=== PATIENT | female | born 1995 | race Caucasian/White ===

== ENCOUNTER 2023-09-11 20:47 | Emergency (ER) | payer BC, SELFPAY ==
[2023-09-11 20:51] VITALS: BP 129/93; PULSE 85; TEMP 36.9; O2SAT 99; BMI 34.2
--- NOTE | 2023-09-11 21:01 | PC.NURSE ---
Left lower quadrant pain for one month.
--- NOTE | 2023-09-11 21:07 | ED.GENADUL1 ---
HPI HPI - General Adult General Chief complaint: Headache Stated complaint: HEADACHE Time Seen by Provider: 09/11/23 20:50 Source: patient Mode of arrival: walk-in Limitations: no limitations History of Present Illness HPI narrative: This 28-year-old female presents for evaluation of a headache that has been present for approximately 1 week and left lower quadrant abdominal pain that has been present for approximately 1 month. The patient states for the past 3 months she has been getting headaches that are associated with nausea and photophobia. She has been taking Tylenol, Aleve and Excedrin Migraine for the headache with minimal improvement. She denies any thunderclap presentation of the headache. She has not had a fever. She denies any neck pain or stiffness. She has nausea and occasionally has episodes of vomiting. She has not vomited during this headache syndrome. She denies any chest pain or shortness of breath. She has been having intermittent left lower quadrant abdominal pain for the past month and has a history of ovarian cyst. She denies the possibility of . She denies any urinary symptoms. She states the pain comes and goes. It is not bothering her at this time. She denies any vaginal bleeding or discharge. At this time she has a bitemporal headache and posterior occipital headache. She states that when she gets the headaches they have been in various positions but typically are bitemporal. She has no neck pain or stiffness. She has no focal weakness numbness or tingling. No blurred vision or slurred speech. Related Data Home Medications ?Medication ?Instructions ?Recorded ?Confirmed No Known Home Medications 09/11/23 09/11/23 Allergies Allergy/AdvReac Type Severity Reaction Status Date / Time No Known Drug Allergies Allergy Verified 09/11/23 20:55 Opioid HPI Opioid Management Most Recent Opioid Data: No Data to Display Review of Systems ROS Status of ROS 10 or more systems reviewed and unremarkable except as noted in history and below Exam Narrative Exam Narrative: Vital signs and Nursing Notes reviewed: Patient is afebrile with a normal pulse, diastolic blood pressure is elevated at 129/93, she is not hypoxic with pulse ox of 99% on room air General: Awake, alert, oriented, mildly uncomfortable appearing female lying in a dark room, when the lights were turned on she squinted and covered her eyes, no respiratory distress HEENT: Normocephalic atraumatic, mucous membranes are moist and pink, eyes are clear, normal conjunctiva, vision is grossly intact, mild photophobia appreciated, pupils are equal and reactive, posterior pharynx is normal with no erythema or exudate Neck: Supple, no meningeal signs, no anterior or posterior cervical lymphadenopathy Chest: Lungs are clear to auscultation with good air entry, there is no wheezing rhonchi or rales appreciated no accessory muscle use, patient is speaking in complete sentences-no chest wall tenderness to palpation CVS: Regular rate and rhythm S1-S2, no murmurs rubs or gallops, pulses are brisk and equal bilaterally ABD: Soft, nondistended, nontender, no rebound guarding or rigidity, bowel sounds are normal, no reproducible tenderness on exam Extremities: Moving all extremities, no lower extremity tenderness or swelling noted, negative Homans' sign, pulses are brisk and equal bilaterally Skin: Normal in appearance without rash,pallor, petechiae or purpura Neuro: No focal deficits, speech is clear, time lock expert strength is intact, upper and lower extremity strength and sensation is intact, no gross focal deficits Constitutional Vital Signs, click to edit/add: Last Vital Signs Temp 98.5 F 09/11/23 20:51 Pulse 70 09/11/23 22:12 Resp 18 09/11/23 22:12 BP 96/62 09/11/23 22:12 Pulse Ox 10 L 09/11/23 22:12 O2 Del Method Room Air 09/11/23 22:12 Course Vital Signs Vital signs: Vital Signs Temperature 98.5 F 09/11/23 20:51 Pulse Rate 85 09/11/23 20:51 Respiratory Rate 16 09/11/23 20:51 Blood Pressure 129/93 H 09/11/23 20:51 Pulse Oximetry 99 09/11/23 20:51 Oxygen Delivery Method Room Air 09/11/23 20:51 Temperature 98.5 F 09/11/23 20:51 Pulse Rate 70 09/11/23 22:12 Respiratory Rate 18 09/11/23 22:12 Blood Pressure 96/62 09/11/23 22:12 Pulse Oximetry 10 L 09/11/23 22:12 Oxygen Delivery Method Room Air 09/11/23 22:12 Medical Decision Making MDM Narrative Medical decision making narrative: This 28-year-old female presents for evaluation of a bitemporal and posterior occipital headache that started approximately 1 week ago. She has been having headaches for the past 3 months. Her headache is associated with nausea and photophobia. She denies any thunderclap presentation of the headache. She has no fever. She has no skin rash. She has no nuchal rigidity. She has also been having left lower quadrant abdominal pain intermittently for the past month and her physician wants her to have an ultrasound. [facility] and the patient was not having any significant left lower quadrant abdominal pain. She did have photophobia and otherwise a normal neuroexam. An IV was placed and she was medicated with IV fluids, Toradol, Reglan and Benadryl. Routine labs were ordered. She has a normal white count and hemoglobin. She has a normal CRP and sed rate. She has normal electrolytes. The patient was able to rest and on reevaluation her headache has resolved and she is feeling comfortable being discharged home. She will be discharged home with a prescription for Reglan and an ultrasound requisition for the left lower quadrant abdominal pain. Lab Data Labs: Lab Results 09/11/23 Range/Units 21:12 WBC 9.0 (4.0-11.0) 10^3/uL RBC 4.29 (4.20-5.40) 10^6/uL Hgb 12.4 (12.0-16.0) g/dL Hct 37.5 (36.0-48.0) % MCV 87.4 (81.0-99.0) fL MCH 28.9 (26.7-34.0) pg MCHC 33.1 (29.9-35.2) g/dL RDW 12.5 (11.0-15.0) % Plt Count 316 (150-450) 10^3/uL MPV 10.1 (9.5-13.5) fL Neut % (Auto) 52.6 (43.0-75.0) % Lymph % (Auto) 39.3 (20.5-60.0) % [place] % (Auto) 6.2 (1.7-12.0) % Eos % (Auto) 1.1 (0.9-7.0) % Baso % (Auto) 0.6 (0.2-2.0) % Neut # (Auto) 4.8 (1.4-6.5) 10^3/uL Lymph # (Auto) 3.6 (1.2-3.8) 10^3/uL [place] # (Auto) 0.6 (0.3-0.8) 10^3/uL Eos # (Auto) 0.1 (0.0-0.7) 10^3/uL Baso # (Auto) 0.1 (0.0-0.1) 10^3/uL Abs Immat Gran (auto) 0.02 (0.00-0.03) 10^3/uL Imm/Tot Granulo (auto) 0.2 (0.0-0.5) % ESR 6 (<=20) mm/hr Sodium 139 (136-145) mmol/L Potassium 4.2 (3.5-5.1) mmol/L Chloride 105 (98-107) mmol/L Carbon Dioxide 25.8 (21.0-32.0) mmol/L Anion Gap 12.4 BUN 11.0 (7.0-18.0) mg/dL Creatinine 0.84 (0.55-1.02) mg/dL Est GFR ( Amer) >60 (>=60) Est GFR (Non-Af Amer) >60 (>=60) BUN/Creatinine Ratio 13.1 Glucose 85 (74-106) mg/dL Calcium 8.8 (8.5-10.1) mg/dL Total Bilirubin 0.4 (0.2-1.0) mg/dL AST 17 (15-37) U/L ALT 17 (14-59) U/L Alkaline Phosphatase 75 (46-116) U/L C-Reactive Protein <0.50 (<=0.50) mg/dL Total Protein 7.1 (6.4-8.2) g/dL Albumin 3.7 (3.4-5.0) g/dL Globulin 3.4 g/dL Albumin/Globulin Ratio 1.1 Discharge Plan Discharge Stand Alone Forms: Portal Instructions Chief Complaint: Headache Clinical Impression: Headache, Pelvic pain Patient Disposition: Home, Self-Care Time of Disposition Decision: 22:15 Condition: Good Prescriptions / Home Meds: No Action No Known Home Medications Print Language: Nepali Referrals: FRANCISCA ZAMUDIO [Primary Care Provider] - 1 week Discharge Date/Time: 09/11/23 22:22
[2023-09-11 21:26] LABS: Erythrocyte Sedimentation Rate 6 mm/hr (<=20)
[2023-09-11] MEDS: 0.9 % SODIUM CHLORIDE 1,000 ML 1000 ML IV (21:30)
[2023-09-11] MEDS: DIPHENHYDRAMINE HCL 50 MG/ML VIAL 12.5 MG IV (21:31)
[2023-09-11] MEDS: METOCLOPRAMIDE HCL 10 MG/2 ML VIAL IVP (21:31)
[2023-09-11] MEDS: KETOROLAC TROMETHAMINE 30 MG/ML VIAL IVP (21:31)
[2023-09-11] MEDS: METHYLPREDNISOLONE SOD SUCC PF 125 MG/2 ML VIAL IVP (21:31)
[2023-09-11 21:36] LABS: Alanine Aminotransferase 17 U/L (14-59); Albumin Globulin Ratio 1.1; Albumin Level 3.7 g/dL (3.4-5.0); Alkaline Phosphatase 75 U/L (46-116); Anion Gap 12.4; Aspartate Amino Transferase 17 U/L (15-37); BUN Creatinine Ratio 13.1; Bilirubin Total 0.4 mg/dL (0.2-1.0); C Reactive Protein <0.50 mg/dL (<=0.50); Calcium 8.8 mg/dL (8.5-10.1); Carbon Dioxide 25.8 mmol/L (21.0-32.0); Chloride 105 mmol/L (98-107); Estimated GFR (African America >60 (>=60); Estimated GFR (Non-African Ame >60 (>=60); Globulin 3.4 g/dL; Glucose 85 mg/dL (74-106); Potassium 4.2 mmol/L (3.5-5.1); Sodium 139 mmol/L (136-145); Total Protein 7.1 g/dL (6.4-8.2)
[2023-09-11 22:12] VITALS: BP 96/62; PULSE 70; O2SAT 10
[2023-09-11 22:17] LABS: Basophils Percent Auto 0.6 % (0.2-2.0); Eosinophils Percent Auto 1.1 % (0.9-7.0); Hematocrit 37.5 % (36.0-48.0); Hemoglobin 12.4 g/dL (12.0-16.0); Immature Granulocytes Pct Auto 0.2 % (0.0-0.5); Lymphocytes Absolute Auto 3.6 10^3/uL (1.2-3.8); Lymphocytes Percent Auto 39.3 % (20.5-60.0); Mean Corpuscular HGB Conc 33.1 g/dL (29.9-35.2); Mean Corpuscular Hemoglobin 28.9 pg (26.7-34.0); Mean Corpuscular Volume 87.4 fL (81.0-99.0); Mean Platelet Volume 10.1 fL (9.5-13.5); Monocytes Percent Auto 6.2 % (1.7-12.0); Neutrophils Absolute Auto 4.8 10^3/uL (1.4-6.5); Neutrophils Percent Auto 52.6 % (43.0-75.0); Platelet Count 316 10^3/uL (150-450); Red Blood Count 4.29 10^6/uL (4.20-5.40); Red Cell Distribution Width 12.5 % (11.0-15.0)
[2023-09-11 22:18] LABS: Basophils Absolute Auto 0.1 10^3/uL (0.0-0.1); Eosinophils Absolute Auto 0.1 10^3/uL (0.0-0.7); Immature Granulocytes Abs Auto 0.02 10^3/uL (0.00-0.03); Monocytes Absolute Auto 0.6 10^3/uL (0.3-0.8)
== END 2023-09-11 22:22 | disposition home or self-care (01) ==
PROVIDERS: Emergency Provider Emergency Medicine; PCP Internal Medicine
DX: R51.9 Headache, unspecified (principal); R10.2 Pelvic and perineal pain
CPT/HCPCS: 36415; 80053; 85025; 85652; 86140; 96374; 96375; 99284; J1200; J1885; J2765; J2919

== ENCOUNTER 2023-09-16 13:50 | Outpatient (OUT) | payer BC, SELFPAY ==
--- NOTE | 2023-09-16 13:56 | US_ITS ---
The [address] [address] Patient Name: ABDULLAHI ZAMORA MRN: [id number] date: 1995 Sex: F Assigned Patient Location: Current Patient Location: Accession/Order Number: [id number] Exam Date: 09/16/2023 14:00 Report Date: 09/17/2023 08:27 At the request of: KIM MARKER Procedure: US pelvis w/ transvaginal EXAM: Pelvic ultrasound HISTORY: . Left Pelvic Pain . COMPARISON: None. TECHNIQUE: Transabdominal and transvaginal scanning was performed FINDINGS: Scanning of the pelvis demonstrates a retroverted uterus measuring 7.1 x 5 x 3.9 cm. Endometrial complex measures 4 mm. There is a linear hyperechoic structure within the endometrial cavity consistent with an IUD which appears in adequate position. Right ovary measures 3.5 x 1.6 x 1.7 cm. Color-flow is noted. Follicles are noted. No masses are noted. Left ovary measures 2.5 x 2.4 x 1.6 cm. Color-flow is noted. Follicles are noted. No masses are noted. No fluid is noted in the cul-de-sac. US/US pelvis w/ transvaginal IMPRESSION: 1. Normal-appearing uterus and endometrial complex with IUD in place. 2. Normal-appearing ovaries. Electronically authenticated by: KYRA WHITTAKER Date: 09/17/2023 08:27
== END 2023-09-16 13:51 | disposition home or self-care (01) ==
LOC: US 13:50
PROVIDERS: PCP Internal Medicine; Visit Provider Emergency Medicine
DX: R10.2 Pelvic and perineal pain (principal); Z97.5 Presence of (intrauterine) contraceptive device
CPT/HCPCS: 76830; 76856

== ENCOUNTER 2023-10-30 13:25 | Outpatient (OUT) | payer BC, SELFPAY ==
--- NOTE | 2023-10-30 13:32 | MR_ITS ---
The [address] [address] Patient Name: ABDULLAHI ZAMORA MRN: [id number] date: 1995 Sex: F Assigned Patient Location: MRI Current Patient Location: MRI Accession/Order Number: [id number] Exam Date: 10/30/2023 14:00 Report Date: 10/30/2023 16:18 At the request of: SHAMAR CLARK Procedure: MR head/brain wo/w con MR head/brain wo/w con, 10/30/2023 2:00 PM EDT INDICATION: New Onset Headache, Migraine COMPARISON: There is no appropriate prior study for comparison. TECHNIQUE: Multiplanar, multisequential MRI images of brain were obtained without and with injection of contrast. FINDINGS: The cerebral sulci as well as ventricular system are appropriate for age. There is no restricted diffusion. Few nonspecific white matter changes within the frontal lobes likely due to migraine. There is no intracranial mass, mass effect, midline shift, intra or extra-axial fluid collection or large hemorrhage. No abnormal enhancing lesion is noted. Normal flow-void in the intracranial vessels is noted. The visualized portions of orbits, mastoid air cells as well as paranasal sinuses are unremarkable. MR/MR head/brain wo/w con IMPRESSION: No acute intracranial process is noted. Electronically authenticated by: DARCI BLAKE Date: 10/30/2023 16:18
--- NOTE | 2023-10-30 13:34 | XR_ITS ---
The [address] [address] Patient Name: ABDULLAHI ZAMORA MRN: [id number] date: 1995 Sex: F Assigned Patient Location: MRI Current Patient Location: MRI Accession/Order Number: [id number] Exam Date: 10/30/2023 13:40 Report Date: 10/30/2023 13:55 At the request of: SHAMAR CLARK Procedure: XR foreign body eye PAULINA EXAMINATION: XR foreign body eye PAULINA HISTORY: Foreign Body Eye COMPARISON: No relevant comparison available. FINDINGS: ORBITS: Negative for a metallic foreign body. OTHER: Negative. XR/XR foreign body eye PAULINA IMPRESSION: No metallic foreign bodies in the orbits Electronically authenticated by: KYRA GROSSMAN Date: 10/30/2023 13:55
== END 2023-10-30 13:26 | disposition home or self-care (01) ==
LOC: MRI 13:25
PROVIDERS: PCP Internal Medicine; Visit Provider Nurse Practitioner Family
DX: G43.909 Migraine, unspecified, not intractable, without status migrainosus (principal)
CPT/HCPCS: 70030; 70553; A9575

== ENCOUNTER 2024-06-04 16:32 | Outpatient (OUT) | payer BC, SELFPAY ==
--- OUTSIDE RECORDS SUMMARY | 2024-06-04 16:46 | XMS_ITS | CCD ---
Author Organization [facility] Care Team Providers Care Residential Field Manager Name Role Phone [facility] Unavailable Unavaila ble LEUTZ, KIM K Unavailable Unavailable [facility] Unavailable Unavaila ble SEUN ACRLOS Unavailable Unavailable LEUTZ, KIM K Unavailable Unavailable No, Physician Primary Care Provider UnavailLee Lopez CNP Unavailable [phone] SYSTEM, PROVIDER NOT IN Attending Unavaila ble SYSTEM, PROVIDER NOT IN Referring Unavaila ble NO, PHYSICIAN Primary Care Unavailable SYSTEM, PROVIDER NOT IN Attending Unavaila ble SYSTEM, PROVIDER NOT IN Referring Unavaila ble NO, PHYSICIAN Primary Care Unavailable [facility] Primary Care U navailKEIRA Varma Attending Unavailabl KEIRA Granado Admitting Unavailabl SWAPNIL Santo Referring Unavailable SWAPNIL SKINNER Attending Unavailable [facility] Primary Care U maryailSWAPNIL Chand Referring Unavailable SWAPNIL SKINNER Attending Unavailable [facility] Primary Care U maryailable SWAPNIL SKINNER Admitting Unavailable LEE GARY Attending Unavailable SWAPNIL SKINNER Referring Unavailable YUE, PHYSICIAN Primary Care Unavailable LEE GARY Attending Unavailable YUE, PHYSICIAN Primary Care Unavailable LEE GARY Attending Unavailable NO, PHYSICIAN Primary Care Unavailable Claire Mathis Unavailable VADIM[facility], DR LIEBERMAN Primary Care Unavailable JENNIFER, DR JEROME Hector Admitting Unavailabl e JENNIFER, DR JEROME Hector Attending Unavailabl e JENNIFER, DR JEROME Hector Consulting Unavailabl e ROBB, DR FRANCISCA Sanabria Admitting Unavail able ROBB, DR FRANCISCA Sanabria Attending Unavail able HUSAM, DR LIEBERMAN Primary Care Unavailable ROBB, DR FRANCISCA Sanabria Consulting Unavail able AGGIE NIELSON Attending Unavailable AGGIE NIELSON Referring Unavailable Medications Current Medications Medication Drug Class(es) Dates Sig (Normalized) Sig (Original) aluminum chloride 200 mg/ml topical solution (5 sources) Start: 10-18-2023 End: 12-30-2023 Aluminum Chloride (Drysol) 20 % solution Active 1 APPLIC TOPICAL Daily at bedtime 37.5 3 December 30, 2023 3:50pm Use every night for 5 days then use 1-2x per week as needed at bedtime cholecalciferol 0.05 mg oral capsule (7 sources) Vitamin D Start: 10-18-2023 take 1 capsule by mouth once daily Cholecalciferol (Vitamin D3) 50 mcg (2,000 unit) capsule Active 50 MCG PO Daily October 18, 2023 12:00am take 1 tablet by mouth once jessica y cholecalciferol, vitamin D3, (cholecalciferol) 400 unit Tab Take 400 Units by mouth daily . 0 Active Ethinyl Estradiol / norgestimate (3 sources) Progestin, Estrogen take 1 tablet by mouth once daily norgestimate-ethinyl estradiol (ORTHO-CYCLEN) 0.25-35 mg-mcg per tablet Take 1 tablet by mouth daily. 0 Active multivitamin with minerals tablet (3 sources) take 1 tablet by mouth once daily multivitamin with minerals tablet Take 1 tablet by mouth daily. 0 Active propranolol hydrochloride 40 mg oral tablet (7 sources) beta-Adrenergic Katrina Start: End: take 1 tablet by mouth once daily Propranolol 40 mg tablet Active 0 .ROUTE .COMPLEX 90 June 04, 2024 8:48am TAKE 1 TABLET BY MOUTH EVERY DAY Start: 11-04-2023 End: 12-02-2023 take 1 tablet by mouth once daily Propranolol 40 mg tablet Discontinued 40 MG PO Daily 30 November 04, 2023 12:00am December 02, 2023 10:04am Completed/Discontinued Medications Medication Drug Class(es) Dates Sig (Normalized) Sig (Original) azithromycin 250 mg oral tablet (1 source) Macrolide Antimicrobial Start: 01-02-2024 End: 06-04-2024 Azithromycin 250 mg tablet Discontinued 0 PO daily 6 January 02, 2024 12:00am June 04, 2024 8:29am Take 2 on day 1 and then take 1 for the next 4 days (days 2-5) esomeprazole 40 mg oral tablet (3 sources) Proton Pump Inhibitor Start: 10-18-2023 End: 12-05-2023 take 40 mg by mouth once daily Esomeprazole Magnesium Discontinued 40 MG PO Daily October 18, 2023 12:00am December 05, 2023 8:28am Esomeprazole Magnesium 40 mg capsule,delayed release(DR/EC) (1 source) Start: 10-18-2023 End: 12-05-2023 take 1 capsule by mouth once daily Esomeprazole Magnesium 40 mg capsule,delayed release(DR/EC) Discontinued 40 MG PO Daily October 18, 2023 12:00am December 05, 2023 8:28am fluticasone propionate 0.05 mg/actuat metered dose nasal spray (2 sources) Corticosteroid Start: 12-30-2023 End: 06-04-2024 take 1 spray(s) nasal route twice daily Fluticasone Propionate (Flonase Allergy Relief) 50 mcg/actuation spray,suspension Discontinued 1 SPRAY INTRANASAL Twice daily December 30, 2023 12:00am June 04, 2024 8:29am administer into each nostril metoclopramide 10 mg oral tablet (4 sources) Dopamine-2 Receptor Antagonist Start: 10-18-2023 End: 12-05-2023 take 1 tablet by mouth every six hours as needed for nausea and vomiting Metoclopramide Hcl 10 mg tablet Discontinued 10 MG PO Every 6 hours as needed for nausea and vomiting October 18, 2023 12:00am December 05, 2023 8:29am Prenat.Vits,[place],Min- Iron-Folic ( Vitamin) Tablet (4 sources) Start: 01-16-2021 End: 10-18-2023 take 1 tablet by mouth once daily Prenat.Vits,[place],Min -Iron-Folic ( Vitamin) Tablet Discontinued 1 TAB PO Daily January 16, 2021 12:00am October 18, 2023 9:28am Problems Active Problems Problem Classification Problem Date Documented Da te Episodic/Chronic Fever of unknown origin (1 source) Fever, unspecified; Translations: [FEVER UNSPECIFIED] Onset: 05-13-2022 Episodic Headache; including migraine (9 sources) Migraine; Translations: [Migraine, unspecified, not intractable, without status migrainosus] 10-18-2023 Chronic Headache; including migraine (7 sources) Headache; Translations: [New onset headache] 10-18-2023 Episodic Malaise and fatigue (4 sources) Other fatigue; Translations: [OTHER FATIGUE] Onset: 05-09-2022 Episodic Nonmalignant breast conditions (3 sources) Lump in left breast; Translations: [Unspecified lump in the left breast, unspecified quadrant] Episodic Other nervous system disorders (1 source) Carpal tunnel syndrome of left wrist; Translations: [Carpal tunnel syndrome, left upper limb] Chronic Other nervous system disorders (1 source) Carpal tunnel syndrome, left upper limb Onset: 09-27-2021 Resolved: 09-27-2021 Chronic Other nutritional; endocrine; and metabolic disorders (2 sources) Body mass index 30+ - obesity; Translations: [Body mass index (BMI) 33.0-33.9, adult] 12-05-2023 Chronic Other nutritional; endocrine; and metabolic disorders (1 source) Body mass index (BMI) 33.0-33.9, adult; Translations: [Body Mass Index 33.0-33.9, adult] 12-05-2023 Chronic Other skin disorders (4 sources) Excessive sweating; Translations: [Generalized hyperhidrosis] 10-18-2023 Episodic Other skin disorders (3 sources) Generalized hyperhidrosis; Translations: [Generalized hyperhidrosis] 10-18-2023 Episodic Other upper respiratory infections (2 sources) Acute pharyngitis, unspecified; Translations: [Sore throat symptom] Onset: 11-14-2021 12-31-2023 Episodic Otitis media and related conditions (3 sources) Dysfunction of eustachian tube; Translations: [Unspecified Eustachian tube disorder, unspecified ear] 12-30-2023 Episodic Unclassified (1 source) PELVIC AND PERINEAL PAIN / R10.2(ICD-10) Onset: 09-04-2016 Unclassified (1 source) UNSPECIFIED OVARIAN CYST LEFT SIDE / N83.202(ICD-10) Onset: 09-04-2016 Unclassified (1 source) NAUSEA WITH VOMITING UNSPECIFIED / R11.2(ICD-10) Onset: 09-04-2016 Unclassified (1 source) CHILLS WITHOUT FEVER / R68.83(ICD-10) Onset: 09-04-2016 Unclassified (1 source) CONTACT W/AND (SUSP) EXPOS COVID-19; Translations: [CONTACT W/AND (SUSP) EXPOS COVID-19] Onset: 11-14-2021 Past or Other Problems Problem Classification Problem Date Documented Da te Episodic/Chronic Abdominal pain (1 source) Pelvic and perineal pain; Translations: [PELVIC AND PERINEAL PAIN] Onset: 08-30-2016 Fluid and electrolyte disorders (1 source) Volume depletion, unspecified; Translations: [VOLUME DEPLETION UNSPECIFIED] Onset: 11-14-2021 Episodic Other connective tissue disease (1 source) Lateral epicondylitis, left elbow Onset: 09-27-2021 Resolved: 09-27-2021 Episodic Results Test Name Value Interpretation Reference Range Facility No Panel InformationOrdered By: Dorothea Duncan on 12-30-2023 Quick Strep (POC) [facility] CBC AUTO DIFFon 05-09-2022 BASO # 0.0 103/ul Normal 0.0-0.1 [facility] Comment on above: Performed By: #### C BC #### [facility] [address] [place] [address] Dr. Rosario Lockwood Basophils/100 WBC (Bld) 0.4 % Normal 0.2-2.0 [facility] Comment on above: Performed By: #### C BC #### [facility] [address] [place] [address] Dr. Rosario Lockwood EO # 0.0 103/ul Normal 0.0-0.7 [facility] Comment on above: Performed By: #### C BC #### [facility] [address] [place] [address] Dr. Rosario Lockwood Eosinophils/100 WBC (Bld) 0.4 % Critically low 0.9-7.0 [facility] Comment on above: Performed By: #### C BC #### [facility] [address] [place] [address] Dr. Rosario Lockwood Erythrocyte distribution width (RBC) [Ratio] 13.0 % Normal 11.0-15.0 [facility] Comment on above: Performed By: #### C BC #### [facility] [address] [place] [address] Dr. Rosario Lockwood Hematocrit (Bld) [Volume fraction] 37.9 % Normal 36.0-48.0 [facility] Comment on above: Performed By: #### C BC #### [facility] [address] [place] [address] Dr. Rosario Lockwood Hemoglobin (Bld) [Mass/Vol] 12.5 g/dL Normal 12.0-16.0 [facility] Comment on above: Performed By: #### C BC #### [facility] [address] [place] [address] Dr. Rosario Lockwood IG # 0.03 10e3/ul Normal 0.00-0.03 [facility] Comment on above: Performed By: #### C BC #### [facility] [address] [place] [address] Dr. Rosario Lockwood IG % 0.3 % Normal 0.0-0.5 [facility] Comment on above: Performed By: #### C BC #### [facility] [address] [place] [address] Dr. Rosario Lockwood LYMPH # 2.2 103/ul Normal 1.2-3.8 [facility] Comment on above: Performed By: #### C BC #### [facility] [address] [place] [address] Dr. Rosario Lockwood Lymphocytes/100 WBC (Bld) 23.4 % Normal 20.5-60.0 [facility] Comment on above: Performed By: #### C BC #### [facility] [address] [place] [address] Dr. Rosario Lockwood MANUAL DIFF REQ NO Normal [facility] Comment on above: Performed By: #### C BC #### [facility] [address] [place] [address] Dr. Rosario Lockwood MCH (RBC) [Entitic mass] 27.5 pg Normal 26.7-34.0 [facility] Comment on above: Performed By: #### C BC #### [facility] [address] [place] [address] Dr. Rosario Lockwood MCHC (RBC) [Mass/Vol] 33.0 g/dL Normal 29.9-35.2 [facility] Comment on above: Performed By: #### C BC #### [facility] [address] [place] [address] Dr. Rosario Lockwood MCV (RBC) [Entitic vol] 83.5 fL Normal 81.0-99.0 [facility] Comment on above: Performed By: #### C BC #### [facility] [address] [place] [address] Dr. Rosario Lockwood MONO # 0.6 103/ul Normal 0.3-0.8 [facility] Comment on above: Performed By: #### C BC #### [facility] [address] [place] [address] Dr. Rosario Lockwood Monocytes/100 WBC (Bld) 5.9 % Normal 1.7-12.0 [facility] Comment on above: Performed By: #### C BC #### [facility] [address] [place] [address] Dr. Rosario Lockwood NEUT # 6.7 103/ul Critically high 1.4-6.5 [facility] Comment on above: Performed By: #### C BC #### [facility] [address] [place] [address] Dr. Rosario Lockwood Neutrophils/100 WBC (Bld) 69.6 % Normal 43.0-75.0 [facility] Comment on above: Performed By: #### C BC #### [facility] [address] [place] [address] Dr. Rosario Lockwood Platelet mean volume (Bld) [Entitic vol] 9.4 fL Critically low 9.5-13.5 [facility] Comment on above: Performed By: #### C BC #### [facility] [address] [place] [address] Dr. Rosario Lockwood PLT 326 103/ul Normal 150-450 [facility] Comment on above: Performed By: #### C BC #### [facility] [address] [place] [address] Dr. Rosario Lockwood RBC 4.54 106/ul Normal 4.20-5.40 [facility] Comment on above: Performed By: #### C BC #### [facility] [address] [place] [address] Dr. Rosario Lockwood WBC 9.6 103/ul Normal 4.0-11.0 [facility] Comment on above: Performed By: #### C BC #### [facility] [address] [place] [address] Dr. Rosario Lockwood CRPon 05-09-2022 CRP 6.4 mg/dL Critically high <=1.0 [facility] Comment on above: Performed By: #### C MP, CRP #### [facility] [address] [place] [address] Dr. Rosario Lockwood CULTURE URINEon 05-09-2022 CULTURE URINE Culture Observations : NO GROWTH. Normal [facility] Comment on above: Performed By: #### U RCX #### [facility] [address] [place] [address] Dr. Rosario Lockwood PROF 14(COMP METB)on 023 Albumin [Mass/Vol] 3.5 g/dL Normal 3.4-5.0 [facility] Comment on above: Performed By: #### C MP, CRP #### [facility] [address] [place] [address] Dr. Rosario Lockwood Albumin/Globulin [Mass ratio] 0.9 {ratio} Normal [facility] Comment on above: Performed By: #### C MP, CRP #### [facility] [address] [place] [address] Dr. Rosario Lockwood ALP [Catalytic activity/Vol] 74 U/L Normal 46-116 [facility] Comment on above: Performed By: #### C MP, CRP #### [facility] [address] [place] [address] Dr. Rosario Lockwood ALT [Catalytic activity/Vol] 15 U/L Normal 14-59 [facility] Comment on above: Performed By: #### C MP, CRP #### [facility] [address] [place] [address] Dr. Rosario Lockwood Anion gap [Moles/Vol] 10.2 mmol/L Normal Th [facility] Comment on above: Performed By: #### C MP, CRP #### [facility] [address] [place] [address] Dr. Rosario Lockwood AST [Catalytic activity/Vol] 11 U/L Critically low 15-37 [facility] Comment on above: Performed By: #### C MP, CRP #### [facility] [address] [place] [address] Dr. Rosario Lockwood Bilirubin [Mass/Vol] 0.2 mg/dL Normal 0.2-1.0 [facility] Comment on above: Performed By: #### C MP, CRP #### [facility] [address] [place] [address] Dr. Rosario Lockwood Calcium [Mass/Vol] 9.0 mg/dL Normal 8.5-10.1 [facility] Comment on above: Performed By: #### C MP, CRP #### [facility] [address] [place] [address] Dr. Rosario Lockwood Chloride [Moles/Vol] 102 mmol/L Normal 98-107 [facility] Comment on above: Performed By: #### C MP, CRP #### [facility] [address] [place] [address] Dr. Rosario Lockwood CO2 [Moles/Vol] 27.4 mmol/L Normal 21.0-32.0 [facility] [place] Comment on above: Performed By: #### C MP, CRP #### [facility] [address] [place] [address] Dr. Rosario Lockwood Creatinine [Mass/Vol] 0.80 mg/dL Normal 0.55-1.02 [facility] Comment on above: Performed By: #### C MP, CRP #### [facility] [address] [place] [address] Dr. Rosario Lockwood EGFR-AF TUVALUAN >60 Normal >=60 [facility] [place] Comment on above: Performed By: #### C MP, CRP #### [facility] [address] [place] [address] Dr. Rosario Lockwood EGFR-NON AF TUVALUAN >60 Normal >=60 [facility] Comment on above: Performed By: #### C MP, CRP #### [facility] [address] [place] [address] Dr. Rosario Lockwood Globulin (S) [Mass/Vol] 4.0 g/dL Normal [facility] Comment on above: Performed By: #### C MP, CRP #### [facility] [address] [place] [address] Dr. Rosario Lockwood Glucose [Mass/Vol] 132 mg/dL Critically high 74-106 [facility] Comment on above: Performed By: #### C MP, CRP #### [facility] [address] [place] [address] Dr. Rosario Lockwood Potassium [Moles/Vol] 3.6 mmol/L Normal 3.5-5.1 [facility] Comment on above: Performed By: #### C MP, CRP #### [facility] [address] [place] [address] Dr. Rosario Lockwood Protein [Mass/Vol] 7.5 g/dL Normal 6.4-8.2 [facility] Comment on above: Performed By: #### C MP, CRP #### [facility] [address] [place] [address] Dr. Rosario Lockwood Sodium [Moles/Vol] 136 mmol/L Normal 136-145 [facility] Comment on above: Performed By: #### C MP, CRP #### [facility] [address] [place] [address] Dr. Rosario Lockwood Urea nitrogen [Mass/Vol] 11.0 mg/dL Normal 7.0-18.0 [facility] Comment on above: Performed By: #### C MP, CRP #### [facility] [address] [place] [address] Dr. Rosario Lockwood Urea nitrogen/Creatinine [Mass ratio] 13.8 mg/mg Normal [facility] Comment on above: Performed By: #### C MP, CRP #### [facility] [address] [place] [address] Dr. Rosario Lockwood UA RANDOMon 02-22-2023 Bilirubin Ql (U) Negative Normal NEGATIVE [facility] [place] Comment on above: Performed By: #### U A #### [facility] [address] [place] [address] Dr. Rosario Lockwood Clarity (U) CLEAR Normal CLEAR [facility] Comment on above: Performed By: #### U A #### [facility] [address] [place] [address] Dr. Rosario Lockwood Color (U) LT. YELLOW Normal YELLOW [facility] Comment on above: Performed By: #### U A #### [facility] [address] [place] [address] Dr. Rosario Lockwood Glucose Ql (U) Negative Normal NEGATIVE [facility] Comment on above: Performed By: #### U A #### [facility] [address] [place] [address] Dr. Rosario Lockwood Hemoglobin Ql (U) LARGE Abnormal NEGATIVE [facility] Comment on above: Performed By: #### U A #### [facility] [address] [place] [address] Dr. Rosario Lockwood Ketones Ql (U) Negative Normal NEGATIVE [facility] Comment on above: Performed By: #### U A #### [facility] [address] [place] [address] Dr. Rosario Lockwood LEUKOCYTES Negative Normal NEGATIVE [facility] Comment on above: Performed By: #### U A #### [facility] [address] [place] [address] Dr. Rosario Lockwood Nitrite Ql (U) Negative Normal NEGATIVE [facility] Comment on above: Performed By: #### U A #### [facility] [address] [place] [address] Dr. Rosario Lockwood pH (U) 6.0 [pH] Normal 5-9 [facility] Comment on above: Performed By: #### U A #### [facility] [address] [place] [address] Dr. Rosario Lockwood SPEC GRAVITY <=1.005 Abnormal 1.005-<=1.02 5 [facility] Comment on above: Performed By: #### U A #### [facility] [address] [place] [address] Dr. Rosario Lockwood UA PROTEIN Negative Normal NEGATIVE/ TRACE [facility] Comment on above: Performed By: #### U A #### [facility] [address] [place] [address] Dr. Rosario Lockwood Urobilinogen Qn (U) 0.2 {Jerrica'U}/dL Normal 0.2 - 1. 0 [facility] Comment on above: Performed By: #### U A #### [facility] [address] [place] [address] Dr. Rosario Lockwood [facility] PCR [facility] 10-17 SARS-CoV-2 (COVID-19) RNA KATELYN+probe Ql (Unsp spec) Not detected Normal NOT DETECTED [facility] Comment on above: Result Comment: When diagnostic testing is negative, the possibility of a false negative should be considered in the context of a patient's recent exposures and the presence of clinical signs and symptoms consistent with SARS-CoV-2. This test is not yet approved or cleared by the [place] FDA. When there are no FDA-approved or cleared tests available, and other criteria are met, FDA can make tests available under an emergency access mechanism called an Emergency Use Authorization (EUA). The EUA for this test is supported by the [place] of Health and Human Service's declaration that circumstances exist to justify the emergency use of in vitro diagnostics for the detection and/or diagnosis of the virus that causes COVID-19. This EUA will remain in effect for the duration of the COVID-19 declaration justifying emergency of IVDs, unless it is terminated or revoked by the FDA (after which the test may no longer be used). Performed By: #### C VDTBH #### [facility] [address] [place] [address] Dr. Rosario Lockwood GROUP A STREP CULTUREon 10-17 S. pyogenes Ag Ql (Unsp spec) Culture Observations: NEGATIVE FOR GROUP A STREPTOCOCCUS. Normal [facility] Comment on above: Performed By: #### S SCRN, GRASTCX #### [facility] [address] [place], [place] [address] Dr. Rosario Lockwood MONOon 11-11-2021 Monocytes (Bld) [#/Vol] Negative Normal NEGATIVE [facility] Comment on above: Performed By: #### M YESI #### [facility] [address] [place], [place] [address] Dr. Rosario Lockwood STREPT SCREENon 11-11-2021 STREP SCREEN A Negative Normal NEGATIVE [facility] Comment on above: Performed By: #### S SCRN, GRASTCX #### [facility] [address] [place], [place] [address] Dr. Rosario Lockwood Nursing Assessmenton 022 Nursing Assessment [id number]# 1.00CD:127 Normal [facility] Insurance Correspondence Off iceon 04-28-2021 Insurance Correspondence Office [id number] .00CD:127 Normal [facility] Coding Summary.on 03-24-2021 Coding Summary. CD:[id number] G h0bWw+PGhlYWQ+JK5MPZV jN17caPHiiF6AY5dPDX9Q YKHMLJKBFF0BUM0rtFW4L JgpS5QelcIh AgzeeHLgGD38UCc4NRY3k DfmNYdtcV1yvAVjN4r9Sa TmCQ84eV73PBwlNKTaRvV 3LjZpbjsgbWFy M4bsYjBjjGMnQrp+PHRhY mxlIHdpZHRoPScxMDAlJy DjwYjvSV8gNo2cNPAyQZV vbGxhcHNlOiBj v6gtOAWtBBusGQ6ftZqmQ 0GikPA4STAbl2h4Jq42mQ I+NWPdBCG2wSgsJMnjo09 2OsUvr0wkGHF4 kGRtPGppZRO3M13of5R5H JEnCGOwHLF6fDO6nL2oyV uxdscjA6CrtNSyNwV5PMG 1eBExoO6whXoq niwxtW4uAwp+S82PFU1JC DIIYG0UGye9D8MeHwwerD I+NI60HKIwNZ52lUQttBN nr8dvuQo9YaBh WNNwMMN9cEytOVuwi3OoD YTkG04kgQHit6S1TWVoaB tkfYBxSuLadGI0aL0sYOp aomtdy8tnjbmi Wurwm4qugr39xC63O60xI YtlAECbDDF1JIAySBAwvU mlmv4yyP1rSg5+YSfjb9x vp7ngiYh3UkLe MMCaxsYebVadBDD9a2EbR q93F1VjuTcha0KlQtk5xz 18cZGdk3X7sKV3ZKrtKZH eqT7qGMjnWlD5 FHQkUvFjbV69vUAuOSssO z6rgXnnqDoxBU5iEYImmh wvEYMwgO8bVFXenSRvlNx tRI9jCMSdlouw z114TdOaIPB9IKXcrJXsG 9BplN7iSrGcDXOqRZHzI1 FexXIoOSyqO927ZDlkRvZ 0ULTemyGcE6Ga UNTxlJpnAwD5e7F3Hc7Ck 3BeaxivIYC6RJmsJLMsMx Y6TjHoTkJ1W2FlPsi3TTL fsQhuLN6vY6Hq MFHgvjblkvxxtRI6UBPkY AQgnA47eMTqDGrzFx6fe2 J6n238GPCcJYRpzF08Kd6 udDogMTBwdCBU cM4sgbhcq2gdjbuaZsFdN RAlXPk5ZVr2ZDMmvFstHu QwIWY1PwE1TDG3fEYkeF2 poQnuoiaqnW4p Oyc+J69jrO1zJQN5WQN3f worDFGuloFkQA91CB78O4 RyPjwvdGFibGU+PGRpdiB anImsLU2cMrXz u7mff1NfZFteF8FoZYTkR HjzLiv4JTMyWMC7bVL5uF 8dUKAvCJkrb5S3nTM2D4L azmElqh6ox5kn DZUeLVrzV55xbDZbn8X9B VUpyKM3NGZqnSmyTiWptJ 93Oyc+HLUlwDevt3JlIfm lu7lfy4wtzUj6 XoBpDWBncsYrkGmnGCB9i 3MnBx62I43wTQyxLFTuLL MhFUGkHOIofAtkzm6joZ3 wIi8+PGNvbCB3 xIL9wF0jUNBcEuP7LJzdZ 497NdBaiHTrQupzv9pck4 pbhUp4SmOiAEBtpdZwpAt nUWE5o1WrNw99 M50wDIxzAVBpTOEfOOSnQ PWwpQcatx4zbN1qZh9+PC 8og5ygss36fZ15nYE+PHR nUHB4cBygYNoq ONNheT0lTPkvToL2DANnU iQmdY90yVNfGWvyRb2ezC rdxJuhPO9vBXPnvlspk68 2KmIjq6lbPRQp tECwYIiyDAT6K07wa9R0P LHqNCDwKOY8aED5sK9geR lnbjogbGVmdDsgdmVydGl dLIptGCbnM921 IHRvcDsnPlBhdGllbnQgT gBoNDv2E2GpOzm4KUQfvS tbEB3tqKUiBSltNt4fqKc ofXojRH5yUPLc jbvoq870CyXdy8qqIDKor LSdEPbfNHC0H07oa3J7IS TpJLYgACQ9wVA6yY8zjNd nbjogbGVmdDsg xnMecOnqYPqxCWjxK266R HRvcDsnPkJpcnRoIERhdG R2GW26WF06vEIrw9W2iDW 0M9ZrLPPidkgp wbhmsQH7KCIbBUWawS65H s9ltCmsGs0eIGTuDRV9RX GntKZeI9OrcR0gCsOyTAI kEVOcZ9TcpJFb UMmxQ549WMiaSvN1QCLrp fOjZ5GwYKMomPczNrF8k6 U1Yd6UB1B5KD83ZE28dWD pp2F2zYC8D7Ta YBOthksbxveezZG8WREaS WXpmB65Dn5ywPktRv1eMQ NgKTW9IWFkbGRxP7EcmU6 yOiAjMDAwMDAw F1PjtYCtUPodZ691QPcnC pH7YAGewjCkD7AcLOPjwS vaAtB5a0L5Sk5BQLa0EO2 3DL69hXJpu8Y9 jHB2Z1UuJYJiuljskjgiu OS2FRRfZUHxhA32Se6arK wiRq8rSIMaKUD8JKBjhDZ hA7MbuC1kDsOn NOZkXHFeP7CrkZGuITtoV 018QVvvVxH7YWKbwnDyJ6 XbTKDmzTdtNoH9a7L8Zf1 XXJUfEF31HHA2 wWG2ZA81NT71W9WvEqnjz GFibGU+PHRhYmxlIHdpZH RoPScxMDAlJyBzdHlsZT0 nBs5nCSSeRETc vOdixVFkErFbt5wnJFVjQ GrvIB1opTgqI1KzjYP0YM Rdl6o3Yy20S01nO6EeaPD +YXNajVS0uUU4 mX4cWaUkWvP5MNljI952J oRqjYXwPxpmt1nyf2hscV w4MbH1NHJetxUahBjvDTB 7g4UyBr71Z50n IHdpZHRoPSIxNSUiIHZhb Uajfa5buN0sIz4+PGNvbC H5mQF8cA3cRmRnEdV4DAm tN626LvEufKBy Wpewj0dox1zszAu2NaPfV LWypeOuhHguZOD7j2XdWw 16H5HghWamg7BrMgj8mb3 7iROqh6U5tEC0 P0QlOHOdidudiRAceUvtB A1wOSAinhjiAMUbeY3uFI UzI1r8LiDkRkO3EPcrB2X lltS4JMBpoOUi HGchIAX4Z10hz3I5MFQjX GUcEEX4xBA6iB8iaEandb ogbGVmdDsgdmVydGljYWw jTOxnT427URVn gGntWAKxmD5qPEPzyIRhk AgvBD8lRTVnwtuoLcbSHB VTLCBGQVdORTwvdGQ+PHR tWGO6wJedKVpr RULwuF3vMFAzP1p6WpDbX jD4HWisA3RuXBOhixxwTc 75fP4xOeLgOzQ0NDduX9L alcV4ZDElfHBr MTrfONP2B62mo4B2OEMzI ZNvAEU4eSH9sA8cuTcsji ogbGVmdDsgdmVydGljYWw xUKkhY435EKVy xNvxJxD9IiK2PtF6UFT3Y 6HiGhe2HNOezFieKC9yhU LgPEmpBl0drAhksPsoIM8 wNTBpbjtwYWRk kB6kLKGqaQAcrNolOH3rY MBulahgi488WmPdPUM9GP IzrVNhC0ZqeY8sVzYxVRP cVWRsG5JksHFa UUzsW601LWceNxC8IWEyj hGfY8TiKQRkjGndRkJ3e1 Q4Hu8pYYPFOWPvlrruvOD +LGYhMVF9dCkk WPurAXJskV6jPTFlT6e2K eIwBeO5VHzpY1TiZJSfwg yrAv23pB7nAbEgBrI4WWx gJ3MfziT6TUUa rCRsPGcoTVR6A20ss9C9F HBoHYXjNKE1lIQ3dI8xbY lnbjogbGVmdDsgdmVydGl rZTajHAkyY180 IHRvcDsnPkZlbWFsZTwvd GQ+VXBfFTD3mBquSKgtLM WwqS0cNYQqJ1e0ThZcAwM 4MXoiH1OrWSTd olugVx80kZ2zFfKfIzQ3L KxiN0MyeeE6OFWpeINjGA bfBMA7X74ga3V6MONkPJP lRBE5tZO5kW3f bGlnbjogbGVmdDsgdmVyd WtiDYwhNSvpX880XKYufM xmFtihjMR3tZNthRrmcJR +KC88yg20Z2Pe KgwpNwk7OMUdXMH6sHA7r Y2qXJEwKGzhb9F9dDB8L1 ShqdElnw5rm0twCYKmTTg iL76vdDJvu0U9 YTMcoMW6YNDbwFerUqAel G93Oyc+OTGueJmyt3ZaFc oir2qre9kcjYh7WnXvMHZ gdmFsaWduPSJ0 i0XzRi94U37fBLltZVLcD MZdXYOdGHKtlDolwc3okD 9wIi8+YYBryIP9zRS0tE1 dTwDlCdE6SMgv I212OrCufUEcEdpww8edw 4cwmIx8QkRdFFNcefUqtJ nbFRF4y2MiFn12J0UchMq br8XdSpj9ox81 cGRnq3D7fUD8T4OlEWMmi whmiCNvcTrdCY3oAQIbvu nxSFAbyU5zORYiM5t6OlL bXaL0IJjbB0Fd txW8TUHylQTcVRFnnHIWu G0misnxe0iugfjtHfAgMT ItAAp4QBt2LFPmiTgoDpU oXIG4SgR2KQI6 uWTqbU4baFakeerchR4iD yc+LLa0s8tyxWVpZN2otR D9JT95BC00dSDlf1V8mTR 1V8FrQRMztjhf abdeaJI0ILDxKMZwoV24B i3pcKkcBw5xMOCnPYI8OM NlqBMbX9ZipH4zHlDtBSL fEKNrO0WguLVb KOifM488PWfjGpL9CYNir vVlY5LeOVUvtUdxFqH4c7 U6Wt1GFO41FJ00IY57yTD gl5J6oKQ9P6Fh VTSaltulhggsoXI2IGItU YGgzD67Tm1nqKwhVh1jRT AjDPK1VRQysQFvN3LduY6 yOiAjMDAwMDAw J1XzoGEcAFlyL929AVbiL yV8THWzrsXtK4NmTZGmyO vwNqQ5u8U0Uu1IKp52RJ2 6SH06iRTub8Y3 lLM2M8UzVVDqppjulmpky UD1GUOiCILzzP82Xf7njD mfSj1xYJZzOPH6LPQkuGB rR5FdnO7dVnHm RSDnVVPhG6WsyJXhABysI 133CSmxNqA6YKRyjxUaI8 FlLMLjtTbqHrS6m9W0Am3 EPUgbxba6Z4Bc PjwvdHI+RT27LLYcAD80y BXiuCEvp3kpbEu1YgDdFQ OqYNY6nHgpLDdva0SqPAO kY23blIUdo4U0 IGNv (more content not included)... Normal [facility] General Message Officeon General Message Office --- --- --- --- - -- --- --- --- --- From: Anderson CorreaInmike To: ABDULLAHI ROMERO Sent: 03/24/21 02:31:09 AM EST Subject: Discharge Summary Ready to View A summary regarding your recent visit is available in the Documents section of your health record. Normal [facility] Insurance Correspondence Off ice03-24-2021 Insurance Correspondence Office [id number]# [id number]:127 Normal [facility] CBC w/Indiceson 03-23-2021 Erythrocyte distribution width (RBC) [Ratio] 12.8 % Normal 10.9-14.2 [facility] Comment on above: Performed By: #### 2 [id number] #### [facility] [address] [place] [address] Hematocrit (Bld) [Volume fraction] 29.7 % Low 34.0-46.0 [facility] Comment on above: Performed By: #### 2 [id number] #### [facility] [address] [place] [address] Hemoglobin (Bld) [Mass/Vol] 10.2 g/dL Low 12.0-16.0 [facility] Comment on above: Performed By: #### 2 [id number] #### [facility] [address] [place] [address] MCH (RBC) [Entitic mass] 29.0 pg Normal 27.0-34.0 [facility] Comment on above: Performed By: #### 2 778402 #### [facility] [address] [place] [address] MCHC (RBC) [Mass/Vol] 34.3 g/dL Normal 31.4-36.0 [facility] Comment on above: Performed By: #### 2 745709 #### [facility] [address] [place] [address] MCV (RBC) [Entitic vol] 84.6 fL Normal 80.0-100.0 [facility] Comment on above: Performed By: #### 2 [id number] #### [facility] [address] [place] [address] Platelet mean volume (Bld) [Entitic vol] 8.7 fL Normal 6.4-10.8 [facility] Comment on above: Performed By: #### 2 458670 #### [facility] [address] [place] [address] Platelets (Bld) [#/Vol] 248.0 E9/L Normal 150.0-500.0 [facility] Comment on above: Performed By: #### 2 402528 #### [facility] [address] [place] [address] RBC (Bld) [#/Vol] 3.5 E12/L Low 4.3-5.9 [facility] Comment on above: Performed By: #### 2 191817 #### [facility] [address] [place] [address] WBC corrected for nucl RBC Auto (Bld) [#/Vol] 9.6 E9/L Normal 4.0-11.0 [facility] Comment on above: Performed By: #### 2 [id number] #### [facility] [address] [place] [address] Discharge Instructionson Discharge Instructions [id number] [id number]:127 Normal [facility] Inpatient Clinical Summaryon 03-23-2021 Inpatient Clinical Summary [address] [address] Clinical Summary Person Information Name: ABDULLAHI ROMERO/[facility] Age: 25 Years : 1995 Sex: Female PCP: NONE, XXXX Marital Status: Single Phone: [phone] Race: White Ethnicity: Non- or Language: Singaporean Visit Id: Visit Reason: Speciality: Acuity: 1 PP Enc Type: Inpatient Med Service: Obstetrics Arrival: 03/21/2021 21:45:00 Discharge: 03/23/2021 17:50:00 Dispo Type: Home ([facility] [place]) Address: [address] [place] [id number] Provider Notes: Diagnosis: 39 weeks gestation of ; Encounter for supervision of other normal , third trimester Problems Active Obesity complicating , second trimester Supervision of high risk in second trimester (06/09/2020) Smoking Status: Former Smoker Functional Status: Sensory Deficits: History of Falls: Mobility Assistance Prior to Admission: Independent ADLs: Independent Current Level of Assistance for Self-Care/Mobility: Cognitive Status: Allergies No Known Allergies Laboratory or Other Results This Visit (last charted value for your 03/21/2021 visit) Hematology 03/23/2021 5:58 AM Hct: 29.7 % -- Normal range between ( 34.0 and 46.0 ) HGB: 10.2 gm/dL -- Normal range between ( 12.0 and 16.0 ) RBC: 3.5 E12/L -- Normal range between ( 4.3 and 5.9 ) RDW: 12.8 % -- Normal range between ( 10.9 and 14.2 ) MCH: 29.0 pg -- Normal range between ( 27.0 and 34.0 ) MCHC: 34.3 gm/dL -- Normal range between ( 31.4 and 36.0 ) MCV: 84.6 fL -- Normal range between ( 80.0 and 100.0 ) MPV: 8.7 fL -- Normal range between ( 6.4 and 10.8 ) Platelet: 248.0 E9/L -- Normal range between ( 150.0 and 500.0 ) WBC: 9.6 E9/L -- Normal range between ( 4.0 and 11.0 ) Blood Bank 03/21/2021 11:11 PM ABO/Rh: A POS ABSC Gel Interp: Negative Measurements: Height: 167.6 cm Weight: 90.9 kg Blood Pressure: 113 mmHg / 72 mmHg BMI: 32.36 kg/m2 Procedures No Procedures Documented Immunizations diphtheria/pertussis, acel/tetanus adult (03/22/2021) Final Med List: ascorbic acid (Vitamin C) ergocalciferol (Vitamin D) ibuprofen (ibuprofen 600 mg Tab) 1 Tablets By Mouth every 6 hours. Refills: 0. ibuprofen (ibuprofen 600 mg Tab) 1 Tablets By Mouth every 6 hours. Refills: 0. multivitamin, (Vitafusion Gummy DHA and Folic Acid) 2 Tablets By Mouth every day. Care Team Members: Attending Physician: Aggie Nielson MD Consulting Physician: Referring Physician: Follow up: With: Address: When: Aggie Nielson [address], [address] [address] Business (1) Within 6 weeks Comments: Call Dr if fever>100.5 F, heavy bleeding Call for any problems. Patient Education Information: Normal [facility] Inpatient Patient Summaryon 03-23-2021 Inpatient Patient Summary [address] [address] Patient Discharge Instructions PERSON INFORMATION Name: ABDULLAHI ROMERO Date of : 1995 Current Date: 03/23/2021 15:59:41 PHYSICIANS Admitting Physician: Naga ONEAL, Aggie Braden Primary Care Physician: NONE, XXXX PCP Phone Number: Comment: Discharge Diagnosis: 39 weeks gestation of ; Encounter for supervision of other normal , third trimester Condition at Discharge: Improved ABDULLAHI ROMERO has been given the following list of follow-up instructions, prescriptions, and patient education materials: PATIENT FOLLOW-UP INFORMATION Diet: Regular Activity: Ambulate as tolerated, Expect minimal amount of drainage and/or bleeding, Activity as tolerated Wound Care Instructions: Remove Your Dressing IN: Days Call Your Doctor For: Persistent or heavy bleeding, Temperature above 101.5 degrees IF UNABLE TO CONTACT YOUR PHYSICIAN AND YOU FEEL IT IS AN EMERGENCY, GO TO THE NEAREST EMERGENCY ROOM OR CALL 911 Home Treatment: Devices/Equipment: Special Services: Additional Instructions: Physician to provide the following pending test results: Follow up: With: Address: When: Aggie Nielson [address] [place] [address] [address], [place] [phone] Business (1) Within 6 weeks Comments: Call Dr if fever>100.5 F, heavy bleeding Call for any problems. In the event that this physician does not participate in your insurance network, please consult with your insurance company to find a nearby participating provider. Comment: I, ABDULLAHI ROMERO, have received the attached patient education materials/instruction s and have verbalized understanding. Patient Signature Date Clinican/Nurse Signature Date MEDICATION LIST New Medications [id number], [address] [place], [place] [id number], [phone] ibuprofen (ibuprofen 600 mg Tab) 1 Tablets By Mouth every 6 hours. Refills: 0. Last Dose: ____Next Dose: ____ ibuprofen (ibuprofen 600 mg Tab) 1 Tablets By Mouth every 6 hours. Refills: 0. Last Dose: ____Next Dose: ____ Medications to Continue with No Changes Other Medications ascorbic acid (Vitamin C) Last Dose: ____Next Dose: ____ ergocalciferol (Vitamin D) Last Dose: ____Next Dose: ____ multivitamin, (Vitafusion Gummy DHA and Folic Acid) 2 Tablets By Mouth every day. Last Dose: ____Next Dose: ____ Pharmacy Information: [facility] PATIENT EDUCATION INFORMATION Instructions: Medication Leaflets: You may receive a survey from [employer] asking you to rate your care experience. Your feedback is important and will help us understand what we do well and how we can improve the quality of care we provide to you, your loved ones and our community. It?s an honor to serve you. Thank you for choosing [facility] Normal [facility] Insurance Correspondence Off iceon 03-23-2021 Insurance Correspondence Office [id number]#1 .00CD:127 Normal [facility] Progress Note-Physicianon Progress Note-Physician Patient: ABDULLAHI ROMERO Age: 25 years Sex: Female : 1995 Associated Diagnoses: None Author: Antoni Moreira MD Chief Complaint patient without major complaints Physical Examination Vital Signs 03/23/2021 7:26 EST Temperature Oral 36.8 DegC Heart Rate Monitored 73 bpm Systolic Blood Pressure 113 mmHg Diastolic Blood Pressure 72 mmHg Breast: No mass, No tenderness. Exam: Uterus: Symmetric, firm and below the umbillicus, firm and below the umbillicus, normal lochia, normal lochia. Musculoskeletal extremities nontender. extremities nontender. Impression and Plan Plan Routine care. Course: Progressing as expected. Normal [facility] Comment on above: Result Comment: Elec tronically Signed By: Antoni Moreira MD\.br\Date and Time Signed: 03/23/21 07:58 EST ABO/Rhon 03-22-2021 ABO/Rh Positive Invalid Interpretation Code [facility] Comment on above: Performed By: #### 1 [id number], [id number], [id number], [id number] ####[facility] [address] [place] [address] ABO/Rh History Checkon 03-22 ABO/Rh History Check Verified Hx Blood Type Normal [facility] Comment on above: Performed By: #### 1 [id number], [id number], [id number], [id number] ####[facility] [address] [place] [facility] [place] [address] ABSCon 03-22-2021 ABSC Gel Interp Negative Normal [facility] Comment on above: Performed By: #### 1 [id number], [id number], [id number], [id number] ####[facility] [address] [place] [address] Blood Bank ID#on 03-22-2021 BBID# [id number] Invalid Interpretation Code [facility] Comment on above: Performed By: #### 1 [id number], [id number], [id number], [id number] ####[place] [address] [place] [address] CBC w/Indiceson 03-22-2021 Erythrocyte distribution width (RBC) [Ratio] 12.6 % Normal 10.9-14.2 [facility] Comment on above: Performed By: #### 2 947678 ####[place] [address] Hematocrit (Bld) [Volume fraction] 32.9 % Low 34.0-46.0 [facility] Comment on above: Performed By: #### 2 328046 ####[place] [address] Hemoglobin (Bld) [Mass/Vol] 11.3 g/dL Low 12.0-16.0 [facility] Comment on above: Performed By: #### 2 660091 ####[address] [address] MCH (RBC) [Entitic mass] 28.8 pg Normal 27.0-34.0 [facility] Comment on above: Performed By: #### 2 860507 ####[address] [address] MCHC (RBC) [Mass/Vol] 34.2 g/dL Normal 31.4-36.0 [facility] Comment on above: Performed By: #### 2 539038 ####[address] [address] MCV (RBC) [Entitic vol] 84.0 fL Normal 80.0-100.0 [facility] Comment on above: Performed By: #### 2 500731 ####[facility] [place] [address] Platelet mean volume (Bld) [Entitic vol] 8.5 fL Normal 6.4-10.8 [facility] Comment on above: Performed By: #### 2 380859 ####[address] [address] Platelets (Bld) [#/Vol] 304.0 E9/L Normal 150.0-500.0 [facility] Comment on above: Performed By: #### 2 564223 ####[address] [address] RBC (Bld) [#/Vol] 3.9 E12/L Low 4.3-5.9 [facility] Comment on above: Performed By: #### 2 874369 ####[address] [address] WBC corrected for nucl RBC Auto (Bld) [#/Vol] 9.5 E9/L Normal 4.0-11.0 [facility] Comment on above: Performed By: #### 2 174111 ####[address] [address] Consent for Procedure/Surger yon 03-22-2021 Consent for Procedure/Surgery [id number]# 1.00CD:127 Normal [facility] Consent for Procedure/Surgery [id number]#1. 00CD:127 Normal [facility] Delivery Summaryon Delivery Summary Patient: HELIO ROMERO Age: 25 years Sex: Female : 1995 Associated Diagnoses: None Author: Naga ONEAL, Aggie Braden Basic Information Gestational Age: Gestational Age (EGA) and MURALI * Note: EGA calculated as of 03/22/2021 MURALI: 03/26/2021 EGA*: 39 weeks 3 days Type: Final Method Date: 08/08/2020 Method: Ultrasound (08/08/2020) Confirmation: Confirmed Description: -- Comments: Final EDC 03/26/21 d/b 7.1wk US not c/w LMP (EDC by LMP 03/16/21) Entered by: Gaye FISH MD on 08/10/2020 Other MURALI Calculations for this : No additional MURALI calculations have been recorded for this . 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 Indication for delivery: labor progression. Complications Maternal: no complications. Rojas/ Baby A: no complications. Post Delivery Intact. Estimated blood loss: 300 ml. 39 week uncomplicated ....spont labor....SROM: clear....epidural.... pit aug.........place nta spont/whole/intact... .no lac/repair....EBL 300cc......mother and baby doing well Normal [facility] Comment on above: Result Comment: Elec tronically Signed By: Naga ONEAL, Aggie Braden\.br\Date and Time Signed: 03/22/21 09:25 EST Help Me Grow Referralon Help Me Grow Referral [id number]# 1.00CD:127 Normal [facility] Recordson Records [id number]# 1.00CD:127 Normal [facility] Progress Note-Physicianon Progress Note-Physician Patient: ABDULLAHI ROMERO Age: 25 years Sex: Female : 1995 Associated Diagnoses: None Author: Bhaskar Velasquez Jr., DO Postoperative Information Post Operative Note: Day 2. Anesthetic utilized: Regional: Epidural. Health Status Allergies: Allergic Reactions (Selected) No Known Allergies Problem list: All Problems / SNOMED CT 335830590 / Confirmed Supervision of high risk in second trimester / SNOMED CT 56056309 / Confirmed Obesity complicating , second trimester / SNOMED CT 1558359811 / Confirmed Resolved: / SNOMED CT 882619831 Canceled: / SNOMED CT 547296711 Canceled: Obesity complicating , first trimester / SNOMED CT 3494440447 Canceled: Supervision of high risk in first trimester / SNOMED CT 29820260 Physical Examination General: Alert and oriented, No acute distress. Neurologic: Normal sensory, Normal motor function, No focal deficits. Review / Management Condition: Stable. Assessment Anesthetic outcome No post-epidural complications noted.. Plan Transfer/ Discharge: Condition stable. Normal [facility] Comment on above: Result Comment: Elec tronically Signed By: Bhaskar Velasquez Jr., DO\.br\Date and Time Signed: 03/22/21 07:26 EST Progress Note-Physician Patient: ABDULLAHI ROMERO Age: 25 years Sex: Female : 1995 Associated Diagnoses: None Author: Bhaskar Velasquez Jr., DO Chief Complaint Intrauterine Health Status Allergies: Allergic Reactions (All) No Known Allergies Current medications.Problem list: All Problems / SNOMED CT 300746739 / Confirmed Supervision of high risk in second trimester / SNOMED CT 93037380 / Confirmed Obesity complicating , second trimester / SNOMED CT 6491960597 / Confirmed Resolved: / SNOMED CT 679203521 Canceled: / SNOMED CT 694660341 Canceled: Obesity complicating , first trimester / SNOMED CT 3190861962 Canceled: Supervision of high risk in first trimester / SNOMED CT 96536532 Review of Systems Respiratory: Negative. Cardiovascular: Negative. Hematology/Lymphatics : No bruising tendency, No bleeding tendency. Neurologic: Negative. Physical Examination Please refer to Labor floor nursing records for ongoing vital signs, and for intake and output totals while epidural was running. Review / Management Differential diagnosis: Active labor. OB Results Review Labor 03/21/2021 23:11 EST WBC 9.5 E9/L RBC 3.9 E12/L LOW HGB 11.3 gm/dL LOW Hct 32.9 % LOW MCV 84.0 fL MCH 28.8 pg MCHC 34.2 gm/dL RDW 12.6 % Platelet 304.0 E9/L MPV 8.5 fL ABO/Rh A POS ABSC Gel Interp Negative Impression and Plan Plan Labor epidural at request of patient.. Procedure Epidural injection procedure Date/ Time: 03/22/2021 02:43:00. Confirmed: patient, procedure, site, safety procedures followed. Performed by: Bhaskar Velasquez DO. Informed consent: signed by patient. Indication: Active labor.. Preparation and technique: informed consent obtained (from patient before the procedure), positioned (sitting), sterile preparation of site (patient's back was sterilly prepped and draped) (in usual fashion, with 10 % povidone iodine, draped to expose affected area), local anesthesia (1% lidocaine was applied to the patient's back before the epidural was attempted) (lidocaine without epinephrine, _1_ cc injected subcutaneously), approach (midline), needle (17 ga touhy) (placed via loss of resistance technique, At _L4-L5_ interspace.), aspiration (attempted for blood and CSF), injectant (test dose consisting of 3 ml of 1.5% lodocaine with 1:200,000 epi) (test dose given, Epidural catheter inserted and secured at a depth of _9_ cm at skin.). Procedure tolerated: well. Complications: Negative heme, negative CSF, and negative response to test dose.. [facility] Epidural Medications Administered: Bolus dose consisted of _7_ ml of 0.2% Ropivacaine and 100 mcg of fentanyl (2 ml) at 0257. Then a premixed epidural bag of 0.2% Ropivacaine, and 2 mcg/ml of fentanyl was administered via PCEA with basal rate at 10 ml/hour and demand boluses of _5_ ml with a lockout interval of _30_ minutes. The PCEA was started at 0300. [facility] Comment on above: Result Comment: Elec tronically Signed By: Bhaskar Velasquez Jr., DO.ann\Date and Time Signed: 03/22/21 07:26 EST Vaccinationson 03-22-2021 Vaccinations [id number]#1 .00CD:127 [facility] Consent for Treatmenton Consent for Treatment [id number] 201 [id number]#1 .00CD:127 [facility] Consent for Treatment [id number] 201 [id number]#1 .00CD:127 [facility] Coding Summary.on 03-17-2021 Coding Summary. CD:[id number] G h0bWw+PGhlYWQ+FX4GQMP vE04azFDpdI2BK8eLVW5C YYVWUXCNLQ0TZP7zcMD6H HteW2UhhrBy ByikaCMlGQ04UQa6DIN9x BhpEPuovE2hyCAnO6z8Vj EeDA60qH42DZixSOHxVbS 3LjZpbjsgbWFy M7usPbVcgTGpDtp+PHRhY mxlIHdpZHRoPScxMDAlJy NykBnzFM8iHl9vASBfSLT vbGxhcHNlOiBj f7ahUBQfOJriWI8feMviS 1PmqIS5MVCob9h1Vw85tJ I+DCKjREB4eAxrJNjaa47 0TkQsk7hrUFH4 kPBcXLhwVUP4G64rd1Y1O DVmLFOqAMW9cAP4uE0ajK emgdebF3YjfEReRcL9UXW 0nENyxJ1eaIyz mghciH0sDit+O57NUT7BR MPVDY5BShj1Y4LmXyqmyE I+OA94ECGzJP81rDWmcZQ nl5jbpIb5GpMk RMNjOCX7xIcjDTqcy1PrG KUxN90zkNDes2H1HESekR gtoXQgFzEabNZ2lV0sAEr ngaezo5vkemfl Hsdou1zqxc84uW04W33aW YisBKPgLPS9YBMiDNQyjT cgxc7ofX0aGr2+USnpi7m xs7ywgXa0WvYu IJQbzcVpmGfePLX1h3XuO w53E7YqcKdpn7ZtOlp2sp 98dMFwr0X0tHE2ZOcvYOR rgW7dGYwxTqH2 DXHdWpIhfA29lQFjBKqbQ v5plMntfBjqRP5sYAFjwj zhYXEpoJ8bMRXglGNriHj jML1iUYYlnnmk f220UqZlWQV0IVSwqHTaF 0NoaX7iSyUyIZAlNTXwO7 IouTXyPPcsC700AYsnIuE 0LWQkyiXhA2Jk WWUfoNrjWpY1j3O3Rw2El 0QabziaHGV0XOayDZGzTv ApKcPiEaX6T6ZoFjb3TWS ohVnwQA7qO8Ny HSTuurremplugMV1DQPdM STpkZ43tRWuHLnrKn9qj9 K4k291TQCrRPZfwL78Up1 udDogMTBwdCBU rY0pefovj1jevxxpTdVtP BSvREm5URm0IHEbxOxzFi SlYGZ6AiB7FHC9uFJfgW8 bsLizonyakD2x Oyc+T84fsE6cGET5KAI8p hpjPHHvejAfWZ63PW31N6 RyPjwvdGFibGU+PGRpdiB yrQkaLS7nOfFe u2bqm0LnTYhzE7WwHGHgG ZslTur3XOVxSUT4fII8dI 6eJMHzOAlhx5U6jDY2W6X yhjQtjh7jj3ri IBQjTWkdX52bmKYeg5B8R MVnkSE2AHJzpRhsQjPtzN 93Oyc+PWYudFpuq4TgRfx md4jff5wbmWb5 LjTgVLTvfjOorBuzQOC9b 8AeBz72H35qKXtxVQNgUA MqFIUcRKKbwFfdtv0mjA4 wIi8+PGNvbCB3 iBC1yN3jHGEdIoV5EHrmO 525XfFnmCWnOtxbu8rhd3 ccqFn5FhIcEILugzWgpRa hTFI2q4PqYr46 E08fFMgoEQHwNYZmZNLpW TKwyCdnke5hlA0vFk6+PC 2mi8kfmv82hO91vOZ+PHR tYLR6oPceBVbh QCTxiG4kZJxeFgK3ACFzF kTlfP83lSQiUXqrOo7zmW obyHgeAU1yKYAhllqzj83 2EvBly0kfNHSx oQLiJThpBYC1J94xa9C2X XDmZXQcBRS6cIW2qD6fhL lnbjogbGVmdDsgdmVydGl nMJmvVWjeX971 IHRvcDsnPlBhdGllbnQgT mKyQUr9H7HxUdc1FIYkmQ znMQ9jgSTbMPfeCu2wvWj mlIauJE6wHGHn ehcqe620ZmRwb2hvWLPno DGxXUdeYOE0V67zg7A5AF TvKCCgJKK0wPK0rV3fqJh nbjogbGVmdDsg ccGmiGflOQfsCAhfZ701S HRvcDsnPkJpcnRoIERhdG D6KL13RK25jSChd8T7wSQ 5B4UpQKHufunt yjusyEU2APNaACMmhI03C s5nrIacDi9pEOWlROR0FP IrlEXyT4MksW6fEnUqVHE hQSSsY8RdsJFp RNlvI709WWzwMqA5HEBax aHeF3OiUXYwwTjyQeE3w6 C6Ou9XD2Q8ZB33WW39yZO mz4A6cWW9E1Nj BMHfzfnczapweES8PXKaB XGsfF98Vj8hjOhfWf8pLR AqZRC8YZFiuOBtE6PbmF6 yOiAjMDAwMDAw H4DezFUzYQcqQ443PCghP hY7RZYlfuBsC8NlWIUeoZ ulZoU4i0Y4Qq0CMLb7FJ0 4EW35oCWtq5U9 pTN4J0SiWVDnjvppfpnvb AY3SNIeRIFoaI71Dc3lzI zqEz0oKBXzBEU4AFAryPN hP2UkrQ2lBoFf INIzKKZzK6XkcQCmRIatZ 012LUbcKaI2MYXzrvHwU6 GtWBSupQqrTbS8k6L5Ex6 OVIAaKC84TPG2 aQY4TU49FG06W9BcPewaa GFibGU+PHRhYmxlIHdpZH RoPScxMDAlJyBzdHlsZT0 iQf7mUOVuAIIn aYitzXOjYjTmt1ifHBGxJ IhlYS4coHxmO8QcyWU6NE Dja7k9Tl96D46mC6CtwQO +BKFyqST6oQG6 uI2gSnEqEpO8UIbcI863S fZxpNVcHoqym5ujp9ioiA p3NgA4CFDiinMkuYfvRKR 9h0YcDq54Z86y IHdpZHRoPSIxNSUiIHZhb Wpjeo0wbD0iJt1+PGNvbC M4iKF0oT1bJjRjAcJ5FCv nT426UpNyaDCl Vwujt8sax4laqHk1OjXoW OJipeRywFjvBOT5q4CeBu 57A8SqzBeuu4WiNdv0ol0 2wKUjs3J5nKC1 M3DmTQCrnqlrcVZqaYxnT A7pITCkninkDHXfdM5sEB ZiU3s7UkAaWqT7HQbzX4M pwfG2CNStmXBp OCmwOSS9J23to1P8MDAkI VSkJBS3jHC8cF3qaRxcca ogbGVmdDsgdmVydGljYWw mNOseE338YRIv wKbqKIOdhX1wGJGwaJSlk PnlWO3pQEGvpmgjQdpEKN VTLCBGQVdORTwvdGQ+PHR hGSN5bIabTApa NVDicB8pXONmJ7p5LcLjN wI9TJdgC6NnSDJjvsxwXe 03mC9gIaEjKhX2HBpgX3P lnvO4HQWhtQJj OJmeIBC7D66uv4A9FEMcN XCzIYG0bTK5pJ9zlPjzxy ogbGVmdDsgdmVydGljYWw tFFbpU339SOFe sHugRkF7PkA7QmF4TZJ4N 7KlErt4YKQemUisZV6naR PlVVaxGu9qcKcyoCgsSW2 wNTBpbjtwYWRk qM8zXLAadWNqaTbsXD9gQ RKsljcse885QhHqBSF7MG RlqOUkT6FomC2cZwKlWVJ mKFZrA4LzuHWz ZGqsZ566EKoaRjD2HUCrz vOnV9SrUTUamHfbZxJ7s2 M6Ye3aVMDEYAUqdeqysZV +ODMtENJ4oNbz JKdmAVTipN6gAVOhT1c7D sNdTgP9IAvwU0WnYQQaxd zjSp71rE6bIkWsNmV8QKv mT9HhrcX6HTUg dOJvDObbMLC1X65fe6S7M SYhQANkKXN5kAQ8aV3bvK lnbjogbGVmdDsgdmVydGl kCBwdYFduY575 IHRvcDsnPkZlbWFsZTwvd GQ+QGTkFKW7qSvhDQlsOD FimM0cOICrV6o9FjRtUtE 5GUrjF1YfXTPc petuYg49dY7jKuKwNaD9D QzyZ8VwzfJ4ZEIplSAsRZ wwELA1H98yw5P2LBGsHKM iGLA2kRF5qD1g bGlnbjogbGVmdDsgdmVyd UrvUJlhGGmvG582NMOwzJ acDgdnPaZOri6bBI4nQrw vdGQ+YD31zy90 V5ViFlfzRti2DKYwRRU1i RO5cQ1xEEPgPUqjv7L3eT V0K3HdvkLqmh2tp7yjEZL xRScfY76kkUUd j0N8WLVcuZC7VNDlfRvmB tMlyY79Seq+PGNvbGdyb3 UdIblgl9aaw1ifeIu6VrF wJSIgdmFsaWdu RRV0h7ApNa84B70qORjrF HRoPSIzMCUiIHZhbGlnbj 2npU8nJo3+UKUdxFW2nBD 6kY3aQsQpWmV1 VYalN149LoOuzCXvMxjkq 0sts2yzsVd9UvZiCIIiaz CmxTgkLHI4v6OpBa51A5N iyGqwy8QcZoe4 fq73aQEga8U1pQQ4J8ShG JHmuzpuvGFhgWgyGJ6zIB WvcshpOMRndE9dFUZvH0j 4IsDqUmI6QQml V7RdvcF8MREpsFEzDBDcr DYSbG0xxppii0nnkjbmOi UuSOGvMXj5GPu1XZVaiAc sCfAcZVP0QnL2 GBE8uGRfzM7wsEzopwtlj G9wOyc+HPm6s2kfiSSeOZ 2inRI2MS57HD17wXIdb6B 0iBC2P3EtFYLr wkyjayfflWH5ZZElMDNfw J24Mq2juEatCz0vGOXfCE U8MPZfaOKvF4DkjD2fWvN pVPCrYZZqO4Lw eVWgNKkkR537SGvnPeG5W ZFfvhHmQ3PfTDSxcFpnOk H0g2L5Lw0TAI45OQ14WK1 1qXPjo9Z3gCX6 X1FgJVJeehwatcaouWX1Y ZOzGTPhjH12Gt0liNwoCe 7gIWZfPEX9GIYzeIQdD6A nmT2cJcWxLULv SVJeO8YcfZCcZYffO729B CtdYiY6STHfssDkR4ZfBD OqjNruSbI8d6H4Eb1WQm3 0BC22VL32yCHe z4X3qGY9I1VyJUKccdcwo yzqeOD9UAUzOZUzhU77Oy 8pyJpyLu4pOTMvAIP1JVM woGLtS9IikQ9g SxOyMIHhJYAgT5PicJJoZ CpuC373RUtnThQ3YLAjcq LoP5NvHIPjkBphBiS1x5P 1Qg0RLUtubwm9 J2HqLabhxZG+RP88SQSoG D76kYAvwQHgb9ktpXf1Eh ReQBPvSLK6uFkePMoeu5A cEKFvY56fwKMn c2U6 (more content not included)... Normal [facility] Amnisure(Pamg-1)on 1 Amnisure Negative Normal Negative [facility] Comment on above: Order Comment: Comme nt For suspected repture of membranes Result Comment: PERF ORMED BY: [place] [address] PATHOLOGIST ASSET SPECIALIST DENNY MONTANEZ M.D. Performed By: #### O BUDS, ADDONUAPLUS, AMNISURE- #### [facility] [address] [place] [address] [place] Dipstick and Microscopicon 1 05-07-2020 Appearance (U) Clear Normal Clear [facility] Comment on above: Order Comment: Name Collection Type:: Clean-Voided Midstream Performed By: #### O BUDS, ADDONUAPLUS, AMNISURE- #### [facility] [address] [place] [address] [place] Bacteria,Urine None Seen Normal None Seen [facility] Comment on above: Order Comment: Name Collection Type:: Clean-Voided Midstream Performed By: #### O BUDS, ADDONUAPLUS, AMNISURE- #### [facility] [address] [place] [id number] [place] Bilirubin,Urine Negative Normal Negative [facility] Comment on above: Order Comment: Name Collection Type:: Clean-Voided Midstream Performed By: #### O BUDS, ADDONUAPLUS, AMNISURE- #### [facility] [address] [place] [id number] [place] Color (U) Yellow Normal Yellow [facility] Comment on above: Order Comment: Name Collection Type:: Clean-Voided Midstream Performed By: #### O BUDS, ADDONUAPLUS, AMNISURE- #### [facility] [address] [place] [address] [place] Glucose Ql (U) Normal Normal Normal [facility] Comment on above: Order Comment: Name Collection Type:: Clean-Voided Midstream Performed By: #### O BUDS, ADDONUAPLUS, AMNISURE- #### [address] Hyaline Casts,Urine 0-8 Normal 0-8 [facility] Comment on above: Order Comment: Name Collection Type:: Clean-Voided Midstream Result Comment: PERF ORMED BY: [place] [address] PATHOLOGIST ASSET SPECIALIST DENNY MONTANEZ M.D. Performed By: #### O BUDS, ADDONUAPLUS, AMNISURE- #### [address] Ketones Ql (U) Negative Normal Negative [facility] Comment on above: Order Comment: Name Collection Type:: Clean-Voided Midstream Performed By: #### O BUDS, ADDONUAPLUS, AMNISURE- #### [address] Leukocyte esterase Test strip Ql (U) Negative Normal Negative [facility] Comment on above: Order Comment: Name Collection Type:: Clean-Voided Midstream Performed By: #### O BUDS, ADDONUAPLUS, AMNISURE- #### [place] [address] [place] Nitrite,Urine Negative Normal Negative [facility] Comment on above: Order Comment: Name Collection Type:: Clean-Voided Midstream Performed By: #### O BUDS, ADDONUAPLUS, AMNISURE- #### [place] [address] [place] Occult Blood,Urine Trace High Negative [facility] Comment on above: Order Comment: Name Collection Type:: Clean-Voided Midstream Result Comment: PERF ORMED BY: [place] [address] PATHOLOGIST ASSET SPECIALIST DENNY MONTANEZ M.D. Performed By: #### O BUDS, ADDONUAPLUS, AMNISURE- #### [address] pH (U) 6.5 [pH] Normal 5.0-9.0 [facility] Comment on above: Order Comment: Name Collection Type:: Clean-Voided Midstream Performed By: #### O BUDS, ADDONUAPLUS, AMNISURE- #### [address] Protein,Urine Negative Normal Negative [facility] Comment on above: Order Comment: Name Collection Type:: Clean-Voided Midstream Performed By: #### O BUDS, ADDONUAPLUS, AMNISURE- #### [address] RBC LM.HPF (Urine sed) [#/Area] 0 /[HPF] Normal 0-4 [facility] Comment on above: Order Comment: Name Collection Type:: Clean-Voided Midstream Performed By: #### O BUDS, ADDONUAPLUS, AMNISURE- #### [address] Specificy [place],Urine 1.007 Normal 1.001-1.030 [facility] Comment on above: Order Comment: Name Collection Type:: Clean-Voided Midstream Performed By: #### O BUDS, ADDONUAPLUS, AMNISURE- #### [address] Squamous Epithelial Cell,Urine 0-1 Normal 0-2 [facility] Comment on above: Order Comment: Name Collection Type:: Clean-Voided Midstream Performed By: #### O BUDS, ADDONUAPLUS, AMNISURE- #### [address] Urobilinogen,Urine Normal Normal Normal [facility] Comment on above: Order Comment: Name Collection Type:: Clean-Voided Midstream Performed By: #### O BUDS, ADDONUAPLUS, AMNISURE- #### [address] WBC,Urine None Seen Normal 0-4 [facility] Comment on above: Order Comment: Name Collection Type:: Clean-Voided Midstream Performed By: #### O BUDS, ADDONUAPLUS, AMNISURE- #### [address] OB Urine Drug Screen (NO THC )on 03-06-2021 Amphetamine Screen,Urine Negative Normal Negative [facility] Comment on above: Performed By: #### O BUDS, ADDONUAPLUS, AMNISURE- #### [address] Barbiturate Screen,Urine Negative Normal Negative [facility] Comment on above: Performed By: #### O BUDS, ADDONUAPLUS, AMNISURE- #### [address] Benzodiazepines Screen,Urine Negative Normal Negative [facility] Comment on above: Performed By: #### O BUDS, ADDONUAPLUS, AMNISURE- #### [address] Cocaine Screen,Urine Negative Normal Negative [facility] Comment on above: Performed By: #### O BUDS, ADDONUAPLUS, AMNISURE- #### [place] [address] [place] Opiate Screen,Urine Negative Normal Negative [facility] Comment on above: Performed By: #### O BUDS, ADDONUAPLUS, AMNISURE- #### [address] Phencyclidine Screen, Urine Negative Normal Negative [facility] Comment on above: Result Comment: Thes e are unconfirmed results and should not be used for legal purposes. Drug Cut-Off Concentration: AMPH 1000 ng/mL MIKY 200 ng/mL JOSE 200 ng/mL COCM 300 ng/mL OP 300 ng/mL PCP 25 ng/mL PERFORMED BY: [place] [address] PATHOLOGIST ASSET SPECIALIST DENNY MONTANEZ M.D. Performed By: #### O BUDS, ADDONUAPLUS, AMNISURE- #### [place] [address] [place] Group B Strep by PCRon 03-03 Group B Strep colonization by PCR Negative Normal Negative [facility] Comment on above: Performed By: #### 1 [id number] #### [facility] [address] [place] [address] Physician Orderon 03-01-2021 Physician Order [id number]:127 Normal [facility] Amnisure(Pamg-1)on 1 Amnisure Negative Normal Negative [facility] Comment on above: Order Comment: Comme nt For suspected repture of membranes Result Comment: PERF ORMED BY: [place] [address] PATHOLOGIST ASSET SPECIALIST DENNY MONTANEZ M.D. Performed By: #### A MNISURE- #### [place] [address] [place] Dipstick and Microscopicon 1 03-18-2020 Appearance (U) Clear Normal Clear [facility] Comment on above: Order Comment: Name Collection Type:: Clean-Voided Midstream Performed By: #### A IRAM OBUDS #### [place] [address] [place] Bacteria,Urine None Seen Normal None Seen [facility] Comment on above: Order Comment: Name Collection Type:: Clean-Voided Midstream Performed By: #### A IRAM OBUDS #### [place] [address] [place] Bilirubin,Urine Negative Normal Negative [facility] Comment on above: Order Comment: Name Collection Type:: Clean-Voided Midstream Performed By: #### A DDONUAPLUS, OBUDS #### [facility] [address] [place] [address] [place] Color (U) Yellow Normal Yellow [facility] Comment on above: Order Comment: Name Collection Type:: Clean-Voided Midstream Performed By: #### A DDONUAPLUS, OBUDS #### [facility] [address] [place] [address] [place] Glucose Ql (U) Normal Normal Normal [facility] Comment on above: Order Comment: Name Collection Type:: Clean-Voided Midstream Performed By: #### A DDONUAPLUS, OBUDS #### [facility] [address] [place] [address] [place] Hyaline Casts,Urine 0-8 Normal 0-8 [facility] Comment on above: Order Comment: Name Collection Type:: Clean-Voided Midstream Result Comment: PERF ORMED BY: [place] [address] PATHOLOGIST ASSET SPECIALIST DENNY MONTANEZ M.D. Performed By: #### A DDONUAPLUS, OBUDS #### [facility] [address] [place] [address] [place] Ketones Ql (U) Negative Normal Negative [facility] Comment on above: Order Comment: Name Collection Type:: Clean-Voided Midstream Performed By: #### A DDONUAPLUS, OBUDS #### [place] [address] [place] Leukocyte esterase Test strip Ql (U) Negative Normal Negative [facility] Comment on above: Order Comment: Name Collection Type:: Clean-Voided Midstream Performed By: #### A DDONUAPLUS, OBUDS #### [facility] [address] [place] [address] [place] Nitrite,Urine Negative Normal Negative [facility] Comment on above: Order Comment: Name Collection Type:: Clean-Voided Midstream Performed By: #### A DDONUAPLUS, OBUDS #### [facility] [address] [place] [address] [place] Occult Blood,Urine Trace High Negative [facility] Comment on above: Order Comment: Name Collection Type:: Clean-Voided Midstream Result Comment: PERF ORMED BY: [place] [address] PATHOLOGIST ASSET SPECIALIST DENNY MONTANEZ M.D. Performed By: #### A DDONUAPLUS, OBUDS #### [address] pH (U) 7.0 [pH] Normal 5.0-9.0 [facility] Comment on above: Order Comment: Name Collection Type:: Clean-Voided Midstream Performed By: #### A DDONUAPLUS, OBUDS #### [address] Protein,Urine Negative Normal Negative [facility] Comment on above: Order Comment: Name Collection Type:: Clean-Voided Midstream Performed By: #### A DDONUAPLUS, OBUDS #### [address] RBC,Urine 3-4 Normal 0-4 [facility] Comment on above: Order Comment: Name Collection Type:: Clean-Voided Midstream Performed By: #### A DDONUAPLUS, OBUDS #### [address] Specificy [place],Urine 1.022 Normal 1.001-1.030 [facility] Comment on above: Order Comment: Name Collection Type:: Clean-Voided Midstream Performed By: #### A DDONUAPLUS, OBUDS #### [address] Squamous Epithelial Cell,Urine 1-2 Normal 0-2 [facility] Comment on above: Order Comment: Name Collection Type:: Clean-Voided Midstream Performed By: #### A DDONUAPLUS, OBUDS #### [address] Urobilinogen,Urine Normal Normal Normal [facility] Comment on above: Order Comment: Name Collection Type:: Clean-Voided Midstream Performed By: #### A DDONUAPLUS, OBUDS #### [facility] [address] [place] [address] WBC LM.HPF (Urine sed) [#/Area] 0 /[HPF] Normal 0-4 [facility] Comment on above: Order Comment: Name Collection Type:: Clean-Voided Midstream Performed By: #### A DDONUAPLUS, OBUDS #### [facility] [address] [place] [address] OB Urine Drug Screen (NO THC )on 01-16-2021 Amphetamine Screen,Urine Negative Normal Negative [facility] Comment on above: Performed By: #### A DDONUAPLUS, OBUDS #### [address] Barbiturate Screen,Urine Negative Normal Negative [facility] Comment on above: Performed By: #### A DDONUAPLUS, OBUDS #### [place] [address] [place] Benzodiazepines Screen,Urine Negative Normal Negative [facility] Comment on above: Performed By: #### A DDONUAPLUS, OBUDS #### [place] [address] [place] Cocaine Screen,Urine Negative Normal Negative [facility] Comment on above: Performed By: #### A DDONUAPLUS, OBUDS #### [address] Opiate Screen,Urine Negative Normal Negative [facility] Comment on above: Performed By: #### A DDONUAPLUS, OBUDS #### [facility] [address] [place] [address] Phencyclidine Screen, Urine Negative Normal Negative [facility] Comment on above: Result Comment: Thes e are unconfirmed results and should not be used for legal purposes. Drug Cut-Off Concentration: AMPH 1000 ng/mL MIKY 200 ng/mL JOSE 200 ng/mL COCM 300 ng/mL OP 300 ng/mL PCP 25 ng/mL PERFORMED BY: [place] [address] PATHOLOGIST ASSET SPECIALIST DENNY MONTANEZ M.D. Performed By: #### A IRAM, OBUDS #### [address] Coding Summary.on 12-21-2020 Coding Summary. CD:[id number] G h0bWw+PGhlYWQ+EI7DADM tN22kuYKpnQ2CR7wVRO0J IHJVASOIPL6HHN5zjIZ2M FblJ3AadfGf BnksnBAaTD24AEy5AGJ4s RbfNFahvH7llNQkG3h4Fw JpDX22vA54IVxoMFEdFmO 3LjZpbjsgbWFy G8xtWxCfcKGmRwt+PHRhY mxlIHdpZHRoPScxMDAlJy OcdXemFU6iEo4aFVWyFEJ vbGxhcHNlOiBj p2jeESEcJKnoHZ3tkVylX 6TueKG0WPJgp4f8Yz38wL I+AIFbHLH9xMiwIPldj33 3GyEqk5cgKFO8 gGMrKDauUEA3R41hh7Y3I NDrIJYuGDJ7hBE2xI4odI gokocbH2AqxVEiGvS9HEA 6sAOufO7vzGxh premyX7gCtp+G30MNE3XH HDSDL0FItj2B9SvOjwuxR I+BS78YEZsZI91lWPtvTD ws0dqnAw5EkCj FCYhEND6rBduIRlwm1RkV HFmW69qhTQsu5U5VKJnqI jutNOcKwGaqTX4uP8bPMq lzkuex6dlpljq Vbfiw6dkyw03fF48N09lN UtuGQImJCB7TAZvJMQasS rtdv4pnA9nVe7+BRzth0m mv5nfjEc2EyFg HEAcjbXodRofJFO1e4ZsN u65G9RydWzwy6EnAyr3go 04sGEzk9Y6lEC0WNacLNB xcP3pFMquIxQ5 YFHxOlGgbQ95sLQuTYadU k2psNiroVozZF9kAPYpjo exOAHkeW1zQPVmxDWwgJi tEF9yWJEwvkdb t842JcCkEIB2NJHucYKbJ 5QkoW9pZwThYMHtFOTeM8 JelOFvBUrzE206IEneUxZ 8UQRchrEdK5Me JZVjiScrRcG7j3V8Je7Dp 5FulbxcVKT4BJomOQQuDq L9QjJrEqP2V5CwRyx1GMS vzBbsOF5xF6Vt EVPpuuwnxskpgUX8SGZkA QBnvT28zEFhSVilVb6ig5 V2d325EUZwSDQcjC91Jm9 udDogMTBwdCBU iV2ikjrdd9tzwzlcHdQtW LTyTBz5GOh2YLOdnYrbMv WgQIJ5MsV8QYW5jIToeI9 feJmdubecnT7x Oyc+Q17cwF6cYIG9UNF4c musIPJqnzRbOJ19IZ53B2 RyPjwvdGFibGU+PGRpdiB vpKknAH0bOqRx z2zga6HzYTjtI7UkYMWiC ShmOyd3KOSvMAQ7yUX4xL 0tAQEqNLlye4R2eQC6Q6Y wziOfal8oj1mu ZFOgPHcqL12nuJUsa5C8T NUkkNN8STPdpOgnDyKeqC 93Oyc+ZVOiaFbgh9WyBhe sz9wze8wxaJv1 UaFqXIPsjyBniIwrFUC5q 9HqYn29Z72bWHcgKZIhJB QrITMxNBJdiUcydz1daQ5 wIi8+PGNvbCB3 vHG1sH2eVIWwZoQ2TXpuA 994QnXuqUByWcqnu3eex8 xwvWm8DaVkHDFdqgDviWn tOPI8d3KaGm82 A18fMTbpKWIiYEHvZQTdK WDkhSodlh1auF1zLb2+PC 6bh6cfvk59dO19kRG+PHR iFDO0gMqdMYux WTTrmE1kASwpQwG1JBNhK hLokM72hKRpSCntFn1nqJ opsXeoHQ0xMAVyxpmvs72 2BoJgd8krAHHt cASfKSpvNYH2C95vp6N6T ZOcGPGxZUK4aGJ0vD4clZ lnbjogbGVmdDsgdmVydGl oQKsgSCsqT458 IHRvcDsnPlBhdGllbnQgT lBwCIw2O8HjNvh4JHCblY vkPN2mbGUuGJawQe4djSe byPigBK0eIFBo rftzl366XtJyu0ybPYUtz VLhFJbqZAW2P10vt8K7FD ZjYCYqLQW5tNM9wK3bbLp nbjogbGVmdDsg ufPocDpqFCmpZBbsJ600U HRvcDsnPkJpcnRoIERhdG H2DE37SR52hGHrg2J5cBU 6F9PtMVCcqayr ccqznOB4ZUFxTDTcbC43X c9pmAesNj0bLVUxDBV0AS KpyZZxU3GliR7hYsEsJFJ zKAMdB6OoeNDn DSeiT325HNisHhN2FIGru pWfB3DfFAJtaXdsIrG1v2 Q9Dj8DI9D8OW23YU56dJO sm4P9dYF9S4Qu SZLdtcyphsmibNU6CVJdA SSwgU89Ia9ooFuwDe5sWW WyGQZ2WLOslDXzL7TxjN3 yOiAjMDAwMDAw R8WyvTEiGUteK872OWxqD zX9CSOajyNaC5TgSFYdkL kuDxA0m5Q0Yc6ASLk5WH7 6NS92nDZvp1D8 yVM1D5VxLNQihfgoxwynf DX9SFLuFDRnxY19Vf3zwM mdUj9aSUYgUYE5MVZuyCO bJ0VzgD6iEyGv ZDMjDFAcE5JxiLYnMKhpN 716AEqvPbS8WDIdrfEyR9 UeFFUraCfeBkG4i2M7Fv2 KLOFzIN65OJW5 eII8BP43FY56A0RgDxief GFibGU+PHRhYmxlIHdpZH RoPScxMDAlJyBzdHlsZT0 tGn4bJGSsJWDh jTnwrBSpSeSpg9cpDQXqA FzkXF5asOdkG9NniHT1EF Etb4v0Fn60K90gG2XoqAA +FWSlcRE6tQF9 zC9hTiSyWtI8WNieT700F lBbfKVoMtrnp1woa8bwfC e2UyI0LFDjkbJwlZkiNRS 7o1HhXd74C94q IHdpZHRoPSIxNSUiIHZhb Emmca2wzZ8wZw7+PGNvbC K1oVT1kM7cKuTtZxP3JRj dK583NpEbsHYv Zviqj2wdb5qqzCr2FbNeY QQqyoZkvMpmRLB7z4ZuYv 01K2SwoKlzd6GjObf8jo7 2dCXmh3G9fLX8 L1UqCTDbdncijVSoqPhrQ O1qUVEhxezyURCojB9gWM PjQ2p1WvAiXsD6AYmkA2U xquU6SBVfsTWt CLrcFZP3K16ha4H1NMPwW GZlEWD7eDC5cK9ruSiict ogbGVmdDsgdmVydGljYWw yFAxnK471FMTo iRumEWRbrB5mWHGosLCpe KmcKB0xZXFntnadFndXIA VTLCBGQVdORTwvdGQ+PHR oCLR2xXvrWHpa AHGerB4fKOLtV0x4FtFqA uY2ZYuuO4IaYRMasbfxVc 03qC9nAfLjYkF8IAhwK6H bttS6VGJaaGOk IVkuZTJ6Q05xl7A5RTYmK YXiUIM6tKG3fX8vxBjgru ogbGVmdDsgdmVydGljYWw pBMmhV350MXSr cLboHzP7AyI0CcI4POH0O 3PqMyi1XYZxjTxnMV5ciF IjPGonYm8eqXlliQruPW8 wNTBpbjtwYWRk cC1oTESciZJcsYslTU2sO BJkdqfes706BzPpUGK3BG JdrLFeG7FanT3aTuRlURX lLBQcN9BtkIWb UOjyM499CSqgRqB0ERPsk hFnY2JaYZZglZziXxO4m1 T1Mg8yZECQJBOffelqyNI +WXUzRVL6qYlj AWwnVTYjjW6gBJMuR7o1E yFkFvV4WJljT6AeGPFmzb ovVj30yI8qDsTwJxM0HLd tW4VooxD4DWRf tLGtGOvfNEB1B08ha9R1W OQzKPUdNMC5mKS3cW4kzD lnbjogbGVmdDsgdmVydGl pURioRKlrH504 IHRvcDsnPkZlbWFsZTwvd GQ+TEJjJQZ1pWcuYKtzNX NwaM5zTQZcJ0d0RhMfYdX 2CIibS2GxRCJx nmdhRo38gB7zOgLvRaH8A VcwA9ZpkjR0AZBkoTMdJM hoXOH5U31oh1B9LLWkBHB xAYO8cIJ6bO6n bGlnbjogbGVmdDsgdmVyd BtrEAmsGAflA926HXOdbJ nlIc05bCOxmKwbchA5I6F kPjwvdHI+PC90 MEUgHL68fQIiqCMkc2dek Xa8IsYtMSNfSVF1hEggLM ahs4YcYUSjL28rsSMyq3K 6IGNvbGxhcHNl OpVdvJK6aE8fKBhauxfds 1zbzyicSohlf1pvoy49dT 50Q99kWFagZJQiIGZeQWW hTPJtpRnqou4s xQ3lMc1+FINicIM5iAY3e Z2vFfNjCfX0TIidR445Cj KmiTBdKkjve5rao0modKo 9IjIwJSIgdmFs aNowHVL9a6KaWa02Z34cQ HdpZHRoPSIyMCUiIHZhbG efug7fvV0xJs0+RS1xt6e rmp65eA35bUR+ RZQwHVG7nKczXKfvOKGez X1bIQyrZlY4NISpKcQnxL 64dFHcPQajRx6goDmqyBd nVO0uRPPqymxp b173QkCtg4soFDJwrDXkY PglFUH8I85hv1A2BTPvGM ByLPH2xEU8lL4dqGhxhrd gbGVmdDsgdmVy xUqeHBefXWtkP018JRIds VjjNfZmpDVrT6kljuMGWY 1lOjwvdGQ+ELIfGNN2kAh uIWpaHCYdyD5e OOHaS0r0HyOcKuL1RQdcO 3FkmhC5SNCqxBScGPCcpR VCvA7gyzrvc9vojnmeHbP eHZSbJAn6DLj1 VDFtzZxkDwLyBYB9SxR9Q WG0eBEbiV2jpIwfataicF 9wOyc+RklOOjwvdGQ+PHR zIPH0xHblXAka KZWqqB5wTMSoW7j1ErBnH wA9MKuzR0AnwfX0MERnvQ XcCXPcvHJVnB4ijoeal2a vcjogIzAwMDAw LXg8NNe6BURntYbuRfAfQ MF7ZuT1PAU4rAOtrL2dfZ kyoexaiA3uBli+TVJOOjw vdGQ+PHRkIHN0 aEdcDTfePPWvwX4yXZHxL 7k8XmInByB9VDckB8Njkr B6MRHapWAwHAOxjUDGjV8 sgfsho4tbpiii EcAyISRgZBs2QKd6QDJbv YeaRuJlZVC6VsR1YUM8rJ DptZ9zhIdezfejsB2rTfw +IEP5KYX9FQ92 QI40N7LfXumdlDUwxSC+P HRhYmxlIHdpZHRoPScxMD ZnWzIfyXfcMS5tRi2aZCE yLWNvbGxhcHNl OiBj (more content not included)... Normal [facility] Consent for Treatmenton 11-17 Consent for Treatment [id number]#1 .00CD:127 Normal [facility] Gest Scr Glu 1 Hron 12-15-19 Glucose [Mass/Vol] 111 mg/dL Normal 55-140 [facility] Comment on above: Result Comment: Posi tive Screen =1 HR > 140mg/dL Performed By: #### 1 [id number] #### [facility] [address] [place] [address] Hct & Hgbon 12-14-2020 Hematocrit (Bld) [Volume fraction] 34.4 % Normal 34.0-46.0 [facility] Comment on above: Performed By: #### 1 [id number] #### [facility] [address] [place] [address] Hemoglobin (Bld) [Mass/Vol] 11.7 g/dL Low 12.0-16.0 [facility] Comment on above: Performed By: #### 1 [id number] #### [facility] [address] [place] [address] Physician Orderon 12-14-2020 Physician Order [id number] 0 [id number]# 1.00CD:127 Normal [facility] Coding Summary.on 12-04-2020 Coding Summary. CD:[id number]:[id number] G h0bWw+PGhlYWQ+RW1BPPW oS78elFSklW5OT8rCHC5K XXJIYWLWCJ3MXH0ipOZ8G BymL3StntFa EktymGSjSQ35JQa8TMK4p VgxEWpjaT8ybRHmW5d0Cl NzMM74sA37KBxvENSbGrR 3LjZpbjsgbWFy I1isGvCqoZBeGox+PHRhY mxlIHdpZHRoPScxMDAlJy HnhHdbGY5jWt3eFGTcYRG vbGxhcHNlOiBj j6xiNSLrLOacJE3pvXhmD 0KzvLJ7PNGjq1s8Hy31eF I+WNJiEDQ6wBaiZJqpp38 9IoXhk5fzEXL4 yRZzIWcmXXY7Z11fe1T5J YMkWEOgXUQ6sAF5aL1ufO poauqtX4WbfSSpNmN3SPO 1hVQdxK7dtZii kevkaF0gNte+X17MSN3EJ LEMFR4IZnb8N4IsBdgxwS I+HY71DSVeTB55bACpoAD kb0uztIj6SrKg YLEpDAV7kUloAMxna2TzA FThL79vqSSgt3Y8HQBkyG xsuKKxYhKhkWK9uO0lIEx ajwylv9fznyqx Uatry1vmiu85eU49R83dB IjoDDEzLHO5JBKoHBEpxL qbfs4elS5yVy0+BFodk6j ve3zizSz4ItBs LJSnnmZkdXleRRB9o2WgM x11K6OwuHvmn5QwPup2ya 79ePWat2Y7gYT1WGgxSKF zaG0nOAqlWoZ8 EZAyIaTpfY29oRXkXQuxB i4blZpapUlqNO4cHHRcsk ekYSOacM4oPOErsOHcxWt eCR4kEZHfptry m631ViGoRRE5SGFomMUxX 9CsnD4xKgNvWNFkYDRgJ2 IdkBXiIBvrT346UAddNhM 1OJNfjeIqX4Nt DUNngDvsHfY5s4O7Iq9Xb 2PagezrSVH2KOqbSQX4Xm S4PhChVkL7Y6CuUwo9GJP ibDpkXH6qR7Gg TICjmarxlkuaiNX0CCRwL PXgfY72yPOqSFubQx5eu2 G1g967ESRfBGDhuH00Ch3 udDogMTBwdCBU wU9fbkzyc4rzvssiRmPdJ PXfIRl3PWc1XNJraUcgXb CiMPS4TtF9UFP5zSIfqL5 weTkxbqpqcT4q Oyc+C10jjN7pAYS2WNF1e ddpAUSyvaLeZK86YJ75M0 RyPjwvdGFibGU+PGRpdiB eqJfdBQ3oLmAb v7qzj2SqXKbuS9BeJGXtG JgoMld8FIQoLOC6qWG1nW 4oITHdGDogv3Q5cHW7M0K cdcKtja2bg2qk TTSfUEyxM58qcILnn5N5I QBhhCV8EGOipEqpRoXneN 93Oyc+KVWuoAnoa5BlCta jj9pmm4pbvUv9 UrSpSGSxhpFbpFvyXFN5g 5WtJz62W25oLHtzFIWiXT FdINHqRCPqbFrgkv2alO4 wIi8+PGNvbCB3 kRO4jK2oNHTzBeH7ESmeO 456LnLnwNBpUihmv6tsa2 jzgUm6ViNhJYWctmAlyNf tKXB8z6KjVe96 S97eFUjrNDQuHNDyEZNnZ UGfrDdtvu7foX6dWt5+PC 1qy0oyxe03iE42yIJ+PHR zJDG5qYsvYFrt FFLidY8lSKdrLcI4FIImE mFclK40nRDnZMkrRn7taC pbtOelMC6xOLNsfkdxi37 3IdCmv1vrFYNt gTOjPYlzOSG0K01jw6G6K IPgDOFpOOX3uTC6hD5kcW lnbjogbGVmdDsgdmVydGl aXTtgMRpqF639 IHRvcDsnPlBhdGllbnQgT fNkMBv8W5BbIvz9ELRaeS fmGN4oeEQeWGtcXd0zkQg yoGpqCY9fEAWm twzxs833PoYdj2lgUEYmt [id number] ZvGSPbWBO5yKJ9vA7zrQj nbjogbGVmdDsg pkEedYevOKilGVdoZ492B HRvcDsnPkJpcnRoIERhdG Y1WD98LJ41uOChi1Z3gPX 7S5YoYWCjuzoz qulneOP6TIZfRMHpcV10D y0ipSeaUf8iHTUoDEY3SD HxzMOyI7PelF0hJvVvFBB vUCSaL0AwdELr MTknN369UMrqJjM8ZBJel rYpH6ZpOEIuiRxhOcB6u3 T1Is8LY9Q6NK00CG11tRI jt2W5wFM0K3Wy ZFTdiqexozkakMU1CLHuJ BBofY12Es2ocUnaLd4zAT LgBNO7CROliUUgT0LssV9 yOiAjMDAwMDAw O7OyvCYdCEwrP486XUbaX kY2WLJrxnGoZ6HvQYWrqZ qnBsK5h1O9Vp0XEKv6TH0 3NR87dCPcy4B0 nYB3U5YvSICdgwgopimww BF8QQVeFYNmeZ31Cn5uzE viGd0aAOQxUXY2QACunQY kN6ZkkG0gXuFl SEOfMRHfF7DapWOvMSbwN 238DEbiArL5PEZkilXmW4 IyYHDhwKruBsE1n8K7Vl3 AQHOiHG68DUR7 aOP5WJ36FJ84M9CvLjfdj GFibGU+PHRhYmxlIHdpZH RoPScxMDAlJyBzdHlsZT0 gXk5iAAVrMHKe lSsxiTIaDsLjz2pzINDiT XrzKS8xnGjeN4QntQT7UE Qsq4y8Fn78B74nZ2QdeEN +UBPvzOP6dPV9 gW0iScFkLiX6NZqmG412Q bDghKKlZvcgh3lkp3dlvZ g0KsZ3TSUmhwIfpLxnKGB 5n9ObNm60F35w IHdpZHRoPSIxNSUiIHZhb Afujg2gcI2gLq9+PGNvbC F2hYA9oF6hWaDvKkD2AYu tV269KqXyiTOc Svjoy1xtx1ozxPr7CqNvR UUlxgGgrFgoPIW6b8FtYa 85P1ZuwRnzv3TbRzd9cf3 5uQTgl9O5nLN9 C3NgWYHqwyoaiCTxfNdjR S8iUXMxraloYYLxfI2mTV ScI6q3VqTtCuK3XVusB0I fsqL4OUPyuMXe IRmmFRE4O54oy5F1GLSuE VYwAPD4hJN4jJ1fxApyya ogbGVmdDsgdmVydGljYWw oDXvuW215FHHj vIxbWDSojG7fTRQlaHSsf SilNJ0wGVDapiupAghDKC VTLCBGQVdORTwvdGQ+PHR nRLQ5sOhsKKlo JQWitV8pVAXnQ4z0FvThR nO1NKygU8CoYURbeeocQp 22tW2qGpIsPcO1OQigI1A zclK3FEZnjXJt OPvbBRQ6B94zs1A1KRTnC ZZlEKM8tDI7dW2tqTqern ogbGVmdDsgdmVydGljYWw pWWmnF895ZVGa qBrrAuL0ClP7SvL2KDC8A 3ZeKyg3EBBgzXpzZF9kqP AvLQzgVb5obOqvcRwcEV5 wNTBpbjtwYWRk cW6vUPCupIVadYnuWF5wA HFgcfmqm076GwBaEAQ9PM SwkQJhC4RdaY0sXxVdCPY xQROjG5HiqENr HFulD217EPxzGzM4NIUkf jNcX3WqDPUxoRfzFjD1a2 P2Kv6qFLBZUBNmbhbtsIN +BTPcTXK5mAda YMchNMErwJ3cHTUqJ9v0D zEqEcR4ZMdmK8TlDRUwbt ckDr10lX1oPpYrUaL0NYx xN6ItvnF0WQOd jTBeGMrbMIT3O12mt2E2B GRnQAYqQPZ2bUB5sC2xjW lnbjogbGVmdDsgdmVydGl cSDsmRWjeE282 IHRvcDsnPkZlbWFsZTwvd GQ+OXYfQOU9yOpiFPotAC XefE2xYQHcB7t6TfUaBnB 0AQppW2JvBZIy bwxdNc84iB1jBiYjEaP0M MfyM1NzsaI2QJRmaXKlNQ urHZP7C83vs5B8PXWmCFP rDTB5iMV2zK6a bGlnbjogbGVmdDsgdmVyd CdrAJwaPGzrF201OEYpqQ rjQt5KKBFueHWwVSbnoAP +ZI18fv77H5Yu ApxrKue7YRGwRJR2xSQ8b H7rJRLjPPdsy1E4bJB0W9 NueqEbof1hu3jtDHCxFLz aP06bkGWmf7E1 XHEpwQA2XYKalYvrRtFis G93Oyc+NDCyvYgyw9WsMt iim5qfk0pneTm9ClBzGMV gdmFsaWduPSJ0 x0QeLx85A54nBZwoWEZxD YUbXVSyTVDcpBrpwb8xvK 9wIi8+BRXxbDN0zBP4yQ9 iCtHyBfC1YRrp Z584KuHcnQOgTfzng5mxl 5oyzDa3WhCfAEDbnfFbbA imFKI0q9RmMp83K5VooEg fp1QhLnm1nw11 rXGdk7K1xHH8Y6YhGWLey miccPGodTbxDB5gMLKrpf duFYYoeO5cEKLwO6v7ZzJ bCzV1YLavO5Zk aqR8RPTrvQVaBABfxOLLl Z5tlhwyt2tiktnaDjHcBE TbPDx6ZIr4IJDhgHnuVoW cEHW1SvH4KFY8 oRTtwJ7nsQbfofxefB2xX yc+DOh9i6lvzIQeXP7xjS N2CC19TH06tENka0L5yJO 5C6RqECZloyfu ecqyeKF7JTTyYDHclZ30P w0xpUpdJb3fMBQcRJF6ZE LitKEgG0IseE5yPxNuIHT cHQQwN8QnyZPe ARwaJ159IEuuNwG2ZPKyo sLhM4GjNPMgzKnxBeM3t6 U0Jg2KTB08BJ35TS63iSI ux7F0hAL5T7Pu DSQtrgyqucftqOZ1IGGjV KGqeI18Vr9ttLfyXo4lZS MgLRP9JEHuiEFoP2SizV6 yOiAjMDAwMDAw H2SawMSbYOjxL380WSfmM yY1GEGnymDxM1WkQCKewP dxYpC2l0V9Bb2OHt73ZC2 8RS85xVElg4D1 bAL2B6QsTVFcfuogwafrx HV0KGUqQNNsaO54Or2vvX hoFk1xXWVtJXN0BULiiKF gI0MunB6aQaHa TIVdSFIaO5KjpCCqURbwH 928VHfmCxI4NUOzkrSbH2 QcDXZsbGfgFtI4f3A9Rd8 ZTZnofhq8O4Pb PjwvdHI+PX14GCMdOV12c LYcxSGhm6ondIl5BoNdTM VhSHL3xYysCOccv6HqKUZ vO61beZXyx6I5 IGNv (more content not included)... Normal [facility] Nursing Assessmenton 021 Nursing Assessment [id number]# 1.00CD:127 [facility] Consent for Treatmenton Consent for Treatment [id number]#1 .00CD:127 [facility] Discharge Instructionson Discharge Instructions [id number]# 1.00CD:127 [facility] Inpatient Clinical Summaryon 11-16-2020 Inpatient Clinical Summary [place] [id number] Clinical Summary Person Information Name: ABDULLAHI ROMERO Kayla/[facility] Age: 25 Years : 1995 Sex: Female PCP: NONE, XXXX Marital Status: Single Race: White Ethnicity: Non- or Language: Singaporean Visit Id: Visit Reason: abdominal pain Speciality: Acuity: Ante Enc Type: OB Triage Med Service: Obstetrics Arrival: 11/16/2020 11:35:28 Discharge: 11/16/2020 13:35:00 Dispo Type: Home (Routine DC) Address: [address] [place] [id number] Provider Notes: Diagnosis: Problems Active Obesity complicating , second trimester Supervision of high risk in second trimester (06/09/2020) Smoking Status: Former Smoker Functional Status: Sensory Deficits: History of Falls: Mobility Assistance Prior to Admission: ADLs: Current Level of Assistance for Self-Care/Mobility: Cognitive Status: Allergies No Known Allergies Laboratory or Other Results This Visit (last charted value for your 11/16/2020 visit) Urinalysis 11/16/2020 12:05 PM UA Bacteria: 1+ /HPF UA Bili: Negative UA Color: Yellow UA Glucose: Negative UA Ketones: Negative UA Leuk Est: Negative UA Mucous: 2+ UA Nitrite: Negative UA Protein: Negative UA RBC: 4-20 /HPF UA Squam Epithelial: 0-2 /HPF UA Urobilinogen: 0.2 EU/dL -- Normal range between ( 0.0 and 1.0 ) UA WBC: 0-5 /HPF UA Spec Desc: Clean Catch UA Blood: 2+ UA Clarity: Clear UA pH: 5.5 -- Normal range between ( 5.0 and 9.0 ) UA Spec Grav: >=1.030 -- Normal range between ( 1.005 and 1.030 ) Measurements: Height: 167.6 cm Weight: 90.9 kg Blood Pressure: 115 mmHg / 63 mmHg BMI: 32.36 kg/m2 Procedures No Procedures Documented Immunizations No Immunizations Documented This Visit Final Med List: multivitamin, (Vitafusion Gummy DHA and Folic Acid) 2 Tablets By Mouth every day. Care Team Members: Attending Physician: Aggie Nielson MD Consulting Physician: Referring Physician: Follow up: With: Address: When: Aggie Nielson Within 2 to 4 weeks Comments: Call for severe abdominal pain Call physician for heavy vaginal bleeding Call physician if symptoms worsen Patient Education Information: Abdominal Pain During , Hkbs-vp-Vifa Normal [facility] Inpatient Patient Summaryon 11-16-2020 Inpatient Patient Summary [place] [id number] Patient Discharge Instructions PERSON INFORMATION Name: ABDULLAHI ROMERO Date of : 1995 Current Date: 11/16/2020 13:55:15 PHYSICIANS Admitting Physician: Primary Care Physician: ANUM, XXXX PCP Phone Number: Comment: Discharge Diagnosis: Condition at Discharge: Stable ABDULLAHI ROMERO has been given the following list of follow-up instructions, prescriptions, and patient education materials: PATIENT FOLLOW-UP INFORMATION Diet: Activity: Wound Care Instructions: Remove Your Dressing IN: Days Call Your Doctor For: IF UNABLE TO CONTACT YOUR PHYSICIAN AND YOU FEEL IT IS AN EMERGENCY, GO TO THE NEAREST EMERGENCY ROOM OR CALL 911 Home Treatment: Devices/Equipment: Special Services: Additional Instructions: Physician to provide the following pending test results: None Follow up: With: Address: When: Aggie Nielson Within 2 to 4 weeks Comments: Call for severe abdominal pain Call physician for heavy vaginal bleeding Call physician if symptoms worsen In the event that this physician does not participate in your insurance network, please consult with your insurance company to find a nearby participating provider. Comment: I, ABDULLAHI ROMERO, have received the attached patient education materials/instruction s and have verbalized understanding. Patient Signature Date Clinican/Nurse Signature Date MEDICATION LIST Medications to Continue with No Changes Other Medications multivitamin, (Vitafusion Gummy DHA and Folic Acid) 2 Tablets By Mouth every day. Last Dose: ____Next Dose: ____ No Longer Take the Following Medications pyridoxine (Vitamin B6) Pharmacy Information: [facility] [place] PATIENT EDUCATION INFORMATION Instructions: Abdominal Pain During Belly (abdominal) pain is common during . There are many possible causes. Most of the time, it is not a serious problem. Other times, it can be a sign that something is wrong with the . Always tell your doctor if you have belly pain. Follow these instructions at home: ? Do not have sex or put anything in your vagina until your pain goes away completely. ? Get plenty of rest until your pain gets better. ? Drink enough fluid to keep your pee (urine) pale yellow. ? Take sxml-ykk-vtligms and prescription medicines only as told by your doctor. ? Keep all follow-up visits as told by your doctor. This is important. Contact a doctor if: ? Your pain continues or gets worse after resting. ? You have lower belly pain that: ? Comes and goes at regular times. ? Spreads to your back. ? Feels like menstrual cramps. ? You have pain or burning when you pee (urinate). Get help right away if: ? You have a fever or chills. ? You have vaginal bleeding. ? You are leaking fluid from your vagina. ? You are passing tissue from your vagina. ? You throw up (vomit) for more than 24 hours. ? You have watery poop (diarrhea) for more than 24 hours. ? Your baby is moving less than usual. ? You feel very weak or faint. ? You have shortness of breath. ? You have very bad pain in your upper belly. Summary ? Belly (abdominal) pain is common during . There are many possible causes. ? If you have belly pain during , tell your doctor right away. ? Keep all follow-up visits as told by your doctor. This is important. This information is not intended to replace advice given to you by your health care provider. Make sure you discuss any questions you have with your health care provider. Document Released: 02/20/2010 Document Revised: 06/22/2019 Document Reviewed: 06/06/2017 [employer] Patient Education ? 2019 [employer] Medication Leaflets: You may receive a survey from Ladan Aragon asking you to rate your care experience. Your feedback is important and will help us understand what we do well and how we can improve the quality of care we provide to you, your loved ones and our community. It?s an honor to serve you. Thank you for choosing [facility] Normal [facility] Insurance Correspondence Off 11-16-2020 Insurance Correspondence Office [id number]# 1.00CD:127 Normal [facility] UA With Cult Reflexon 2020 Bacteria LM Ql (Urine sed) 1+ /HPF Abnormal Trace [facility] Comment on above: Performed By: #### 1 [id number] ####[facility] [address] [place] [address] Bilirubin Ql (U) Negative Normal Negative [facility] Comment on above: Performed By: #### 1 [id number] ####[facility] [address] [place] [address] Clarity (U) CLEAR Normal Clear [facility] Comment on above: Performed By: #### 1 [id number] ####[address] [address] Color (U) YELLOW Normal Yellow [facility] Comment on above: Performed By: #### 1 [id number] ####[address] [address] Epithelial cells.squamous LM.HPF (Urine sed) [#/Area] 0-2 Normal 0-2 [facility] Comment on above: Performed By: #### 1 [id number] ####[facility] [address] [place] [address] Glucose Test strip (U) [Mass/Vol] Negative Normal Negative [facility] Comment on above: Performed By: #### 1 [id number] ####[facility] [address] [place] [address] Hemoglobin Ql (U) 2+ Abnormal Negative [facility] Comment on above: Performed By: #### 1 [id number] ####[facility] [address] [place] [address] Ketones (U) [Mass/Vol] Negative Normal Negative [facility] Comment on above: Performed By: #### 1 [id number] ####[facility] [address] [place] [address] [place].plasma/[place]. RBC (Bld) [Mass ratio] 4-20 Normal 0-3 [facility] Comment on above: Performed By: #### 1 [id number] ####[address] [address] Mucus Ql (Urine sed) 2+ Normal [facility] Comment on above: Performed By: #### 1 [id number] ####[address] [address] Nitrite Ql (U) Negative Normal Negative [facility] Comment on above: Performed By: #### 1 [id number] ####[address] [address] pH (U) 5.5 [pH] Invalid Interpretation Code 5.0-9.0 [facility] Comment on above: Performed By: #### 1 [id number] ####[address] [address] Protein (U) [Mass/Vol] Negative Normal Negative [facility] Comment on above: Performed By: #### 1 [id number] ####[address] [address] Specific gravity (U) [Rel density] >=1.030 Invalid Interpretation Code 1.005-1.030 [facility] Comment on above: Performed By: #### 1 [id number] ####[address] [address] Type of Urine collection method Clean Catch Normal [facility] Comment on above: Performed By: #### 1 [id number] ####[address] [address] Urobilinogen Qn (U) 0.2 {Jerrica'U}/dL Normal 0.0-1.0 [facility] Comment on above: Performed By: #### 1 [id number] ####[address] [address] WBC Auto Ql (U) Negative Normal Negative [facility] Comment on above: Performed By: #### 1 [id number] ####[place] [id number] [place] [address] WBC LM.HPF (Urine sed) [#/Area] 0-5 Normal 0-5 [facility] Comment on above: Performed By: #### 1 [id number] ####[facility] [address] [place] [address] Ambulatory Clinical Summaryo n 09-28-2020 Ambulatory Clinical Summary {[id number]}CD:[id number] Normal [facility] Obstetrics Office/Clinic Not andrew 09-28-2020 Obstetrics Office/Clinic Note Chief Complaint OB visit 14 weeks 3 days. Obstetric History History (0,0,0,1) # 1 Baby 1 Outcome Date: 07/25/2017 Outcome: Live Outcome or Result: Vaginal Gender: Male Gest Age: 39 weeks 6 days Wt: 3394 g Hospital: -- [facility] Labor: 13 hr 30 min Child's Name: -- Baby's Father: -- Complications: None Complications: None EGA and MURALI Gestational Age (EGA) and MURALI * Note: EGA calculated as of 09/28/2020 MURALI: 03/26/2021 EGA*: 14 weeks 3 days Type: Final Method Date: 08/08/2020 Method: Ultrasound (08/08/2020) Confirmation: Confirmed Description: -- Comments: Final EDC 03/26/21 d/b 7.1wk US not c/w LMP (EDC by LMP 03/16/21) Entered by: Gaye FISH MD on 08/10/2020 Other MURALI Calculations for this : No additional MURALI calculations have been recorded for this History of Present Illness 25 y/o here for visit. Nausea subsided for the most part. She has some low back pain when she works. Review of Systems Constitutional: No fever, No chills, No headache. Skin: No rash, No lesions. Respiratory: No shortness of breath. Cardiovascular: No peripheral edema. Gastrointestinal: No nausea, No vomiting, Noheartburn, No diarrhea, No constipation. Genitourinary: No dysuria. Gynecology: No abnormal vaginal discharge, No vaginal itching/burning, No bleeding, No leaking of fluid. Physical Exam Vitals & Measurements BP: 116/74 HT: 167 cm HT: 167.0 cm WT: 88.4 kg WT: 88.4 kg BMI: 31.7 Examinations Glucose Urine Dipstick: Negative Ketones Urine Dipstick: Negative Protein Urine Dipstick: Negative Weight Measured: 88.4 kg Systolic Blood Pressure: 116 mmHg Diastolic Blood Pressure: 74 mmHg D-EGA at Documented Date, Time: 14W 3D Labor Signs/Symptoms: None Baby A - Activity: Absent per patient Baby A - FHR: 154 bpm Next Appointment: 4 week(s) Antepartum Comment: routine OB. General Exam: Constitutional: alert, no acute distress, well hydrated, well developed, well nourished. Skin: normal color, no rashes, no lesions, no unusual bruising. Head: atraumatic, normocephalic. Eyes: EOM intact, no nystagmus, no icterus. Ears: no external deformities, gross hearing intact. Respiratory: no respiratory distress. Abdomen: gravid, nontender. Extremities: no deformities, no edema. Psych: oriented to all spheres, affect and mood appropriate, normal interaction, good eye contact. Assessment/Plan 1. Obesity complicating , second trimester (O99.212: Obesity complicating , second trimester) Ordered: Office Visit Level 3 Est 76581 NC 2. Supervision of high risk in second trimester (O09.92: Supervision of high risk , unspecified, second trimester) Follow up in [address] Nielson. Ordered: Office Visit Level 3 Est 89120 NC 3. 14 weeks gestation of (Z3A.14: 14 weeks gestation of ) Ordered: Office Visit Level 3 Est 56517 NC Back pain (M54.9: Dorsalgia, unspecified) Ordered: Urnls Dip Stick Non-Auto w/o Micrscpy POC 61482 Follow-up With When Contact Information Aggie Nielson MD Within 4 weeks Additional Instructions: Problem List/Past Medical History Ongoing Obesity complicating , second trimester Supervision of high risk in second trimester Historical Procedure/Surgical History IUD - Removal of intrauterine device (12/07/2019), wisdom teeth x4 removed. Medications Vitafusion Gummy DHA and Folic Acid, 2 tab(s), Oral, Daily Vitamin B6 Allergies No Known Allergies Social History Alcohol - Denies Alcohol Use, 11/10/2018 DENIES, 12/07/2019 Substance Abuse - Denies Substance Abuse, 11/10/2018 DENIES, 12/07/2019 Tobacco - Denies Tobacco Use, 07/21/2017 Former smoker, quit more than 30 days ago Tobacco Use:. Never Smokeless Tobacco Use:. Cigarettes, Started age 19.0 Years. Stopped age 21 Years., 09/28/2020 Family History Endometriosis: Mother. Immunizations Vaccine Date Status Comments diphtheria/pertussis, acel/tetanus adult 07/26/2017 Given Other (see comment) Lab Results Ambulatory Point of Care Results Bilirubin Urine Dipstick: Negative (09/28/20 16:26:00) Blood Urine Dipstick: 1+ Small (09/28/20 16:26:00) Glucose Urine Dipstick: Negative (09/28/20 16:26:00) Ketones Urine Dipstick: Negative (09/28/20 16:26:00) Leukocytes Urine Dipstick: Negative (09/28/20 16:26:00) Nitrite Urine Dipstick: Negative (09/28/20 16:26:00) Protein Urine Dipstick: Negative (09/28/20 16:26:00) Specific [place] Urine Dipstick: >=1.030 (09/28/20 16:26:00) Urine Appearance Urine Dipstick: Clear (09/28/20 16:26:00) Urine Color Urine Dipstick: Yellow (09/28/20 16:26:00) Urobilinogen Urine Dipstick: Normal 0.2-1 EU/dl (09/28/20 16:26:00) pH Urine Dipstick: 5 (09/28/20 16:26:00) Normal [facility] Comment on above: Result Comment: Elec tronically Signed By: Kristyn BLACKMAN\.ann\Date and Time Signed: 09/28/20 16:36 EDT Patient Educationon 09-29-19 Patient Education Obstetrics and Gynecology Second Trimester of The second trimester is from week 14 through week 27 (months 4 through 6). The second trimester is often a time when you feel your best. Your body has adjusted to being , and you begin to feel better physically. Usually, morning sickness has lessened or quit completely, you may have more energy, and you may have an increase in appetite. The second trimester is also a time when the fetus is growing rapidly. At the end of the sixth month, the fetus is about 9 inches long and weighs about 1? pounds. You will likely begin to feel the baby move (quickening) between 16 and 20 weeks of . Body changes during your second trimester Your body continues to go through many changes during your second trimester. The changes vary from woman to woman. ? Your weight will continue to increase. You will notice your lower abdomen bulging out. ? You may begin to get stretch chacon on your hips, abdomen, and breasts. ? You may develop headaches that can be relieved by medicines. The medicines should be approved by your health care provider. ? You may urinate more often because the fetus is pressing on your bladder. ? You may develop or continue to have heartburn as a result of your . ? You may develop constipation because certain hormones are causing the muscles that push waste through your intestines to slow down. ? You may develop hemorrhoids or swollen, bulging veins (varicose veins). ? You may have back pain. This is caused by: ? Weight gain. ? hormones that are relaxing the joints in your pelvis. ? A shift in weight and the muscles that support your balance. ? Your breasts will continue to grow and they will continue to become tender. ? Your gums may bleed and may be sensitive to brushing and flossing. ? Dark spots or blotches (chloasma, mask of ) may develop on your face. This will likely fade after the baby is born. ? A dark line from your belly button to the pubic area (linea nigra) may appear. This will likely fade after the baby is born. ? You may have changes in your hair. These can include thickening of your hair, rapid growth, and changes in texture. Some women also have hair loss during or after , or hair that feels dry or thin. Your hair will most likely return to normal after your baby is born. What to expect at visits During a routine visit: ? You will be weighed to make sure you and the fetus are growing normally. ? Your blood pressure will be taken. ? Your abdomen will be measured to track your baby's growth. ? The heartbeat will be listened to. ? Any test results from the previous visit will be discussed. Your health care provider may ask you: ? How you are feeling. ? If you are feeling the baby move. ? If you have had any abnormal symptoms, such as leaking fluid, bleeding, severe headaches, or abdominal cramping. ? If you are using any tobacco products, including cigarettes, chewing tobacco, and electronic cigarettes. ? If you have any questions. Other tests that may be performed during your second trimester include: ? Blood tests that check for: ? Low iron levels (anemia). ? High blood sugar that affects women (gestational diabetes) between 24 and 28 weeks. ? Rh antibodies. This is to check for a protein on red blood cells (Rh factor). ? Urine tests to check for infections, diabetes, or protein in the urine. ? An ultrasound to confirm the proper growth and development of the baby. ? An amniocentesis to check for possible genetic problems. ? screens for spina bifida and Down syndrome. ? HIV (human immunodeficiency virus) testing. Routine testing includes screening for HIV, unless you choose not to have this test. Follow these instructions at home: Medicines ? Follow your health care provider's instructions regarding medicine use. Specific medicines may be either safe or unsafe to take during . ? Take a vitamin that contains at least 600 micrograms (mcg) of folic acid. ? If you develop constipation, try taking a stool softener if your health care provider approves. Eating and drinking ? Eat a balanced diet that includes fresh fruits and vegetables, whole grains, good sources of protein such as meat, eggs, or tofu, and low-fat dairy. Your health care provider will help you determine the amount of weight gain that is right for you. ? Avoid raw meat and uncooked cheese. These carry germs that can cause defects in the baby. ? If you have low calcium intake from food, talk to your health care provider about whether you should take a daily calcium supplement. ? Limit foods that are high in fat and processed sugars, such as fried and sweet foods. ? To prevent constipation: ? Drink enough fluid to keep your urine clear or pale yellow. ? Eat foods that are (more content not included)... Normal [facility] Coding Summary.on 09-08-2020 Coding Summary. CD:[id number] G h0bWw+PGhlYWQ+UL2DPTN eS88nsTCbeX3RH0aAPO7B AENGIMFUOV6CKI7rkAT2J JqjT4FcxnBx ZleqePWdZQ86QEf3XWI7r XzxARachU5ryIGeD6n9Ek VnRU03tR91SJmhQXIwTtA 3LjZpbjsgbWFy S1yePfJhgKDhXht+PHRhY mxlIHdpZHRoPScxMDAlJy YqaGouSP3aFh5yJGDrMCL vbGxhcHNlOiBj t9pvJPLmSGykDM5itVwiB 2EdpSI4MGYoo6i3Jy91gX I+LZHfOWP0lPxrHMfai31 9CmUnd5otOMC4 qXSnQKovNYM2D57es1Y2O EAaPYHcPMT4kXS6pY2nlL yydldxI0RqnRDcWyA9JDW 4bBJomK3ibKje eqhrdV6iKoc+S64TPK5IY ZNQFN7LNxl3J8CgCyumlG I+TA63OJWzDQ64hIVnuKL sg8mdoSg1VrNe IIRkBNG5tAigGWgqm1YdC JImC53ghJJrx3J5DMEtnK ohtNCnEiYcdQN3gK0eVAb anhour9xpnelh Vllle0qacg93hG72H74qH IlhGIHmDBA4IKCxZAHfjC nirr7zeQ9aCb9+BRjte6n vk4havRs6CrSb EIVqnpAfoKjwLSH0w2JvK a47N8ZjjKttx4RzNos1ol 61nGBqi8T3vLM4BTwpNHP bbG7rMQxdNgG7 VERhYtAevE88xXIvRCitE f8maKnsfZblLS6oGKJone ulYXAwsA9mOQAvsWHtaWz tFI9hJZYdxsyg s676VlHlPEC5QKKfuXYjJ 0LhfA9eUwGqFMNuUGYrI3 HucAUxHKwxK624TGfbUrP 8FNIzhcXnT7Sw BEHbbUkrGwX0q4X1Is8Ce 3TkhpvmXQN3BDrtWKA6Ke G1HcJkEfS8D3LuPph5TPT xbUmbDP1qE0Yo WRAcioxkrmxeaSE4NZGyR NPygA53hBEqWIznLt4ms9 M8s906EACbLRVpzD27Rk2 udDogMTBwdCBU tF1xwhsys7eqyrjnUlZhA IRuCNr0YGs5VEYblLpnVl HzMIN9QrU8TJY1gVAosT0 hpFzmzpakzS6c Oyc+R50mhE8hLBJ0MTB2b susUKIdemPkOQ14RR81V0 RyPjwvdGFibGU+PGRpdiB brMyuWM3yQkOt s8jxf6KxXBbfA4FlWVGaC JnbPhz4SDBeYQA7rCE6kZ 1wUXIoXXjvu3U0rDS9F9H qrqOjpl5py2vq EADpFZpgY05cxOWxx8I7X JZdrFC6ZITnmMcqCgGsoV 93Oyc+RUJxnJaok3LlBro pr7jpj4haqQr0 ChFbZHVhdmTieDjdHGS0q 7YsEx31G47wPEwtMFWdZR RzXYSuWKXjuIcdnu1mdG2 wIi8+PGNvbCB3 dEB2dN1rCGCiPrZ8LZsuO 167CvUovVNoUkmhv3ump2 swuQu7QcLaENNhssEwjMg tKUN2s3TgLc43 Z68tMRhsNDZzFPAeGYUrL OBspNzyam8bkF2qXz4+PC 0eg0zgjy60zG11uPW+PHR lVCO8rUkqFPik FWLbqC6cSKaqFxW2OREsW cFjgG10pWOrXCrtEo8xaB ahwJhiUF7rWAYwinzsa87 2BjBiy8raLXJz pNJbMGnpMMV1C71wh2R6C GPfXVJgMCI3uOK0fL5ysS lnbjogbGVmdDsgdmVydGl wGBfwSVudM788 IHRvcDsnPlBhdGllbnQgT kWhAQk7Y4HjSeu1PRSnjS edHP4ykSPuZKvjZm1viIy zcIpvSJ9xCXYj pqpvn262UaDof3fiLIPgu ZDdKMjvXMS2M09hx1F7RA TnTTQzSIA7jCD4uK2pjCu nbjogbGVmdDsg fyWigHfgCZnrNLmgE270B HRvcDsnPkJpcnRoIERhdG O9LW73OB27nYBvt0C4sAM 1J7VgKEHsiycw gptxtMH1LZJqNIKliJ73X m1tbOciIa0eLQWtWEU5GW CsyLIsT0OryO7qBoOjPYW nFZSwH2PudYPv JHedR015QSlvOeH4YPVps mReV0TqKCEnzGvdKkA2i8 V0Ub4ND2M0YL17RR46gIH pk4A2nPD7S6Nk MAPobecqwsvajST7NSGkH IPewV97Pe9naBlgGy0zLN EoNBO8ZSHihSNmV1AojV4 yOiAjMDAwMDAw F3QgrXRgAMzoE559QRfsT tE6MBYyfeLzL7WaNJEyqZ ndCaF1k2A8Yu4BGMj1KC7 7LD66lDAxn7I7 cVP7P7JkBJPcxepwyzdkj PL2OGJnJZDncV06Fr0ntQ duEj4dTLAmPGP0VRCcdWM lS2TaiX9hVvDo YWNvYMQmX6ZvpBYnTQvbC 451TNbyRmP7UIXcihWeZ7 FmQDQjiWhlAmW4w5T2Zs9 MBZYeEX13ATL5 rYY7HZ56ZS28E3KcVeuuk GFibGU+PHRhYmxlIHdpZH RoPScxMDAlJyBzdHlsZT0 eYu3qDUIyYYJs iUxotRWuXlKqy9opNTHbT QgqRZ9nxJbhC5OhmNW5CJ Drm0g3Qs74J61dD1EbdID +HCNetLM7fUI9 xD7qKvIlVdI0HLglI822F pQgoBAmXycen4dtm7zojJ h2EmX8FUUbqmVxxFvfBDZ 1m7DiBl58E58f IHdpZHRoPSIxNSUiIHZhb Ajaqx3ohU9kLt4+PGNvbC I2dNL1zY5qKnBiBtI5DRg jR115HpFkrKHl Hptsr9zwi5tiqDg9WzZbA WKhkeLlsCoyFKT8a8HiRk 99Q5NopAuqb6DyKvl4rs4 0cEPqg5J6zOM1 H1XiSJQtngskkRHwnKgvO M6hTUNgojcmXQGrsD7yOD NpV0s1XyHyXpJ1SXmzQ2A qhwK0FDVgmSNn FWftQSH2J61qt0F1ADKnI CDrPHR8lXO3qG8aeGxaff ogbGVmdDsgdmVydGljYWw cQWyjP491OLJl rEhhURYmxF8wZKXluBRbh WgjBR2gZIAphqlnUltFCG VTLCBGQVdORTwvdGQ+PHR eGJD2sMzqEFeh GVZtxY4qIGByS1w1IyZkJ rJ3QBzhP4NvEZWjdcauQn 76yZ7eGmUmQuG3COpbE6U etvE2USQkcMYo LGduBDW4B00vj9Z7ZXDuN CHzGQO1mZI4mM1adBhqhv ogbGVmdDsgdmVydGljYWw oSCmrD042EILd kUtxTsT3XoT7TvV3HFK7T 3IkOna4EUGwvOoqJA7atT GmNAiaXv1dcSoesGpeWE5 wNTBpbjtwYWRk oK5cBKNltEKzwOxeBS9zO FNcfszxz637LgNoTDS5HZ QndAGpP1CvmP7gXwAlDTE bBKVuQ4AvxSZt GPecA228GXxlDlI7COUvu eSoV1NbVHSzvKfeKyW6d3 Q0Wg9gPBMQVRCzqxewoTD +ZXAzQYD8qRvo HSheNIVgqA1hKTLcL2x3I uMvMgT3KAwzH9GlRAShdq cgVq86bQ2xZfQmWbC7PBl kD2TfjaL6ZHKk qVVxVShyIAR9I85kv4O6H FRxSYKzHMB1cWJ0vS2psN lnbjogbGVmdDsgdmVydGl cSBiuHNxmO811 IHRvcDsnPkZlbWFsZTwvd GQ+PXTlNAN1gGlbRDuwKB VprJ3kLWOsU5b9DuSeWuO 5ZFtcH8BdQUEk oifyQb58lM1vBuQpZhF7T FvoP3TogkB8QXSuaNTcBR rzEVZ9V72yp1N9UOJdWBK aBCJ1gOL3kC9y bGlnbjogbGVmdDsgdmVyd XuyNBbeICumE117FCCyuJ sbIyzzQlIXyb1qRU7jEem vdGQ+OF89dl20 U4IsEpduEsk8HLWnCZW4u WO1uL0sLSUlTOrcq2C8uT H0N9MrbnIggp7ah5jgTNS qDPifK40nlZBz r3A7LGAyrSL2KCVbfOzkH zSsqQ93Jhx+PGNvbGdyb3 IfLliks4bnm7lbkVf3MkA wJSIgdmFsaWdu ZXQ7a6NbIi02P04pBAyyJ HRoPSIzMCUiIHZhbGlnbj 4xhZ8rTo1+BRYlxCO3uPH 1iC2aEoLgEcP2 WUijJ222GaMdpJWqSwnyl 6pdk5fdcLz3MeNoGHRqde AteTtvHST9t9LjRo32V8Q djXfjs2FbQkd9 nr28sLGwe1Z2oJA2L6EwA BDjnmhajLGwvSlxJT6uKS SmllmvQWEukJ9lLKLrM1a 9UqJgKiD6GHnf P6UxruF8BVZhvVGvAKXwc NRYjT2wotriy5sgnojdYr MsLYDpTIe4UEe3QZMgsCa fCdIvKGO2OaF9 YDY0aSVuiC4rxWxviylms G9wOyc+ZVo6y3acrDWaGG 1vrJH2LC89NN26yNZng3G 3mBL8I0WiCIUb hpovkivdaIV5WYTiWOBbn Y81Kx6eaSobAq5dKZZqXG E2ANJksABtK2ZvrR7dAbO mVWSkNILtY8Ku mWKaAWsvZ280ZHlbNgD7D LMspgUxX4HbAVZnnNopBd B2i1J1Qp9OJW24WV58KA8 6dXJmz7I8dKO2 Z7QiNZZwyicgnppjhGU3F XEiQFJkmM42Wl5vlEceAo 6eVFJsIYH2AAIfzJIcP3X gbU6iYhBkSNLj KWIzD9NvuIMkASkyT826P PchDjW5LZKkuhAoM5EsQV VtnQhwXnO3a9N9Qv0ZJv1 3PH54SR86pLPx l4O5xOX3I7RdGSFdyrlqs dazmTE0FPJyIFIgmX64Lc 7fzMzyCz3dQMQaOSV1UVI ewVMyO5DyoE2z CsRuHPLfXBNeZ9PdiVYqT BusG564DPalBlM2DLPkzu HzD4AgZLCsoZjzRvP4e7J 5Nr8FQTbklon1 G5QcBfkxhWW+DD91FXKwV P76yCDawHHqm5tlnLm5Wl FpCEYsRHW5zRuoWLbgx2K hBUXiS98gxPKn c2U6 (more content not included)... Normal [facility] Coding Summary. CD:[id number]:[id number] G h0bWw+PGhlYWQ+MT3PWNX xJ29ezHPepD8OE2mNQY7Q ZDQAUJHTTD5ESQ8wzQK9I OsnJ5NhqrQf PitutZVyJR17PNd0NNT0d OckIBrisN3zyVCgH8r4Sn ZjRZ94hH00RHjqRHZeKlX 3LjZpbjsgbWFy J2ayDgKwiWAxUnp+PHRhY mxlIHdpZHRoPScxMDAlJy HqeQpnRO1oUn3hZUXwRMQ vbGxhcHNlOiBj z7efSDZoHQfuFU0rpZaeF 5KpjXC0JCYcn4g1Dc16wP I+JWIpXGM4fLkzOIytw95 5BiOno8vgQJD1 bTQiOKsxSWA6H06qu5G0D DNsZFBjRVH4kSN9iE6ghA alljdeX5NfeLKwVyC4WHE 7dUTbpH9hcEvp yledeL4bByw+U39TGC4DH LYXUX6FRfr6O8BtFmisvF I+WF96ODCiMN32bGHnvSF bb5xjaZz4LqQk FSTaNPA4fDnhRMvmn2HyD ULoC80wyRHun2S9LGIyeL jijMWxSgJlzZA0vB4iBNd dpntqs1feglxc Vkdsm6hgvt28pW59V37rK ZfsFZCnLAE6FAHfVEHkeY hezg3liK7hAi9+DXeib4j gk9fwhIh9HdHd YQMgnaJnmTofOMH7n6ZbA u36H1HspSqcj0UbEmj3wq 55hAWwa4J0lCQ2TZumEFB rsT3iXFvgKmR0 ZKKpPjDhiM20dTXmVJhwT u4czJzvaXodIF9iTHXsbb ojEEBwjG7fMMZmfJDmsSg gBB3rVNEtzvby a547RjZbDVJ0SKNvsMJlG 6FrbH8qXnWcCYRtRWNzS5 EaoQMlDQxxL568TGrpZtE 5FAWhdiIwF5Ka IVZexXvzClS6d7V5Mu1Za 0BmwctpEPP1WCqjXAS8Ys T0TaWeMaH2Y2VdGlg3VRW icOybUP8zC7Ne FAVbywuwpgulaNJ2IRKtZ IFjkA90yFQdVItmRu3ri0 C9b324FMTgPIBrmH34Xt7 udDogMTBwdCBU dJ8xqskkn0rurmimMeGyX AOqCWx5GTr8HLStmWlfVd AvIPC5FkW9TCC5vRCdqN8 idYnxdkmtyS6g Oyc+A96nxW6qAXP9KAA7p tlfOWBfiyViQZ46BO57N5 RyPjwvdGFibGU+PGRpdiB hlReeXI6hZeNm x2dpd2CwYWsmI8RtTHFtG DisUfl9NCMtAZY0zLT5jR 5aRNSiAEddf3Q1iZI0J1P lytRbhe0gi5dx HXXhJZrsI10jxTTrg1P1F KTpjKK1UQGfgEfjFkCfvP 93Oyc+QGSytZkpw7OgQyk ce6jua9htpSt8 PwIaDMWiicPqoIznEHI9q 1WnGw90W76gNWzrMVQgQR BrZRUyZSScwVuufb4vkN8 wIi8+PGNvbCB3 rFB7lL1pDEUnJoL1RPgiY 127NcKamAUoZtezn4mox7 lveCv6TcZeVHFkhtPkpDh cBEN8u8MxEp80 Z24vSBnrIGCzQQHcVZGaU YWuqRnhew8rnF0rXd3+PC 5aa8zfnl69tP88yNM+PHR dSWQ5gXhlZNwm SOGsqW0uGGmuHvY4GNWzK pBhnI47uBVeMFlvXg9gpD erzKdoEO2kPWLwdopsa46 6GqNet2tfLWZk vHDzVFgjJGX6X53kg8M6V MGcBGOnLIC1bFH9mM7hvZ lnbjogbGVmdDsgdmVydGl iXGrqTJteD823 IHRvcDsnPlBhdGllbnQgT aWuODo0C9WuBly1ORLosE ixBW5zjUDjUCdqVi3tkFj jtZotVL6oHDZk eadnx147GcCxu9siLMJhj LJwIVevIVA7V44il9I0TE NbZSFgLXG9hSM7eH0biJn nbjogbGVmdDsg wyEadJslCZrmBEtuL820I HRvcDsnPkJpcnRoIERhdG Y8GQ01JV83rZHxv1P8sFG 0Y4UzFOJiendy xmcqxPS8WBJsSAOdqG80P w4bdEucTr4kLUDyOWI9TC SneAItQ2AuxD4hNiOpUVQ hFRYsI0EpmKHu FUkeK041ESsgGbE4TRZrb aEzT6HnXOQhvZdxWeH9y7 V5Td6OT5C3GA38RI67sST mg5K0oPB4Y1Mz NUNzmxzddhakcMJ9MNDqH HYwqN39Ec5hcLrnGo3xPX TwCNX5PTDjwMCsX1AggI7 yOiAjMDAwMDAw X0AzeQEqATquJ039WEdxP sR1RXYntsGaY9IrYBJjaY wwBaF9e2X8Gd3WOSz2HX2 1ZU51vUKqm3S3 mTN2G4WoSQRidfundiikd RE2RLZxYWBucK32Ru2kiY kbLa3uXGSrDDF0PCNyjFC aH8LrlF6xCeMp UAChKNOiE4HftWLtGNaiK 782RTfjViM7YOGlgkDbH1 LuJOIdvBvzPpD7u2B2Uw9 VBZOtCT34YOM2 xWM7AP92MV98S7QzAkszp GFibGU+PHRhYmxlIHdpZH RoPScxMDAlJyBzdHlsZT0 dLn6zEJXrNYRz dYeuhURnSpGmh2lkAKNmF MgeAJ6pkEwmZ6YydBC3EG Bda3u7Hr98S29jG2TiwMP +FEPagRZ0kBE4 bL7wVzZqTjA7HTfoQ826N xGdxYOpUrrau3qeb9snbG x3OjJ6FDNvqdWbgHinTEA 3g9LcVe12U40k IHdpZHRoPSIxNSUiIHZhb Slxlc9joO4rQn0+PGNvbC Y6cUO9yF8nElDjBgN3OSb kG950PoLkeGKw Dfyhq0tpf8jbsNf4JoTaF PAlvxSlgAejZRF2n9ZcSn 93N2RtaHpao1MsSfk3hv1 6wWWxn3A6pID0 I9KjLJZfqrevpPUhzXbsN S5fOJXgmqehQZJblX7xRY JaQ2x8GxTwOcL5FQenQ0G kzqZ6AGPwfBKj WUxsCZK8K39ni8C9UIAjG HRwJNM0aAS3cY7txDbacw ogbGVmdDsgdmVydGljYWw uWNtiL836CDSb tVyuAUFavJ9nKEDpbUCgh PunMT1jYRHqnokjNxdXHN VTLCBGQVdORTwvdGQ+PHR fLFN2vOfdQIsu HZBoqG4bILAqD8f3FlQyH nN3QZiuZ9TcWHOaiykrMw 90vK6oTwOjJnN6TUwjS2L topN4CBJcoJXx MMufFDM1N96gq8O5WPKrP XCfFXB9wYU5nZ1xxKzeyp ogbGVmdDsgdmVydGljYWw lGHraQ459ARQm tZgbCzT6HtU1EyL1IXD3T 6MpIjp3VNYjuWkhTM0vgL PdGQmlRj8miPzhuIhuYD7 wNTBpbjtwYWRk aU3lJORmqFOspMxuAY5uR GLtwfrki299KvRgHVG0MQ WzaYSiN3TvcM3uOjGbNIZ xBHFpE5GmvKHh UOsuN597AAwkXfB0UOQpw cRdX1MzZXFzlAvoTsD4t1 G6Fa0lSYIQZPKqguqwnSJ +EMZjZLY9wCrk QBrvGYVgqQ5dHEMqY7z1A gUzTjG7DOviG6SmDXFyyr kkNb70bK1uEqZiIjS9RLy xT2LmuoD2DQAp oGSmBGcwNUU1O11fk6S5R BBeBIFoIHR0dJB2gO4ngH lnbjogbGVmdDsgdmVydGl fWJmqZGffS518 IHRvcDsnPkZlbWFsZTwvd GQ+GOKxMHT1dQdvAXslGO MtkO0uIYGoQ4n8UnZuDlT 2IScuH2SiHHMg psbzVk67sU3pNqBiIcJ0V AjsX2XjpkW0KMDjjFPaRR lcOZK3Z73aw9R7TBNfQDE rWNF4cEE0sJ5s bGlnbjogbGVmdDsgdmVyd SecIJnqEExuF543SDZkvM hfGt42mJThnUzriwB2Z2S kPjwvdHI+PC90 IVUbNW76hUTbbBGfu2qej Ja5ZaIoRCSfSQI6tUptHP vzy1NnPCZsV00fvKEii1H 6IGNvbGxhcHNl RvHmuSK9vW7xAVsxlzryp 5xalijhFhffw0rlhs78aR 21D40oLLweSLVfNCHjMIG cPXJecMneda5b uC0uBi6+LOPbiXU1pMW8x B6nOuGcSqX5EXhuN103Kb HxqTNcTuule0yqd2wruBm 9IjIwJSIgdmFs wZlwBKC6m7LjEt30E86xY HdpZHRoPSIyMCUiIHZhbG oqga2zrT4zZa5+ZZ9ro4h etp17jN91gVR+ SBAwTZL0oYqiAApmHORpy E5mCSthPdN7UHLfIwOqaC 79yTVwSAxyDx8xnEesuOf rGF2oJOStzhuk q731TbJlm6hjWGWklSQuF VqfJBI9I15di9D3GGCkFI BnFFM6dFY6qB0dlHetuvt gbGVmdDsgdmVy cKczRVtqVHljA869UDQai XemEaHqzIGpA0ypteGYVA 1lOjwvdGQ+MBJnAMV1dXp oLGilOJQswW5r UMNoD4d3ZgHmQtP4UKpdG 0EkisK8WELviSCuFQNlpJ SRqF3buhilp0jxiypkRoX bWRPuJYf4HKz3 IHZfkMfjHwYrIPD6VvW7F JR2fQGocY8hfVvzdvkuwS 9wOyc+RklOOjwvdGQ+PHR nMJL1rEtiVFbd PZUudU0aZWBlF1c6LrHzL dX9IBwxY5YmznW3YORtjO AnNHLenMOXxI4fqgfpx7v vcjogIzAwMDAw RLp1GCw5YHPmoRqbAnBdK FY8BwT5SXV1bLZpiN1hyP wfymdncE1yXzy+TVJOOjw vdGQ+PHRkIHN0 oHrrJPquHGLpcD1hNYFhV 2v9ErVcAaZ9ZAymC5Bceb F3NZXbbJKoCBQkrXMRrW4 wlmvub6hbccwp YuIrBQQiMBf2GGv1WXJxq VhiZwKmXIO5GmO9DQK9mK ZxzK6clHcdpkvexD1pOpd +PRW2IGI5QP64 NF42Q4MvRaatwXLxsTS+P HRhYmxlIHdpZHRoPScxMD ZtGqDepKqaWB1sCs1yKVH yLWNvbGxhcHNl OiBj (more content not included)... Normal [facility] PAP [id number] 09-05-2020 C. trachomatis rRNA KATELYN+probe Ql (Cvx) Negative Invalid Interpretation Code Negative [facility] Comment on above: Performed By: #### 1 [id number] #### [facility] [address] [place] [address] Cytology report Cyto stain Doc (Cvx/Vag) Note Invalid Interpretation Code [facility] Comment on above: Result Comment: TEST S RESULT FLAG UNITS REF RANGE LAB Clinician Provided Cytology Information Source.............Cervix Other.............. No. of containers..01 ThinPrep Vial DIAGNOSIS: 01 NEGATIVE FOR INTRAEPITHELIAL LESION OR MALIGNANCY. 01 Satisfactory for evaluation. Endocervical and/or squamous metaplastic cells (endocervical component) are present. 01 Ashlee Ortiz, [employer] Support Specialist (ASCP) 01 Note 01 The Pap smear is a screening test designed to aid in the detection of premalignant and malignant conditions of the uterine cervix. It is not a diagnostic procedure and should not be used as the sole means of detecting cervical cancer. Both false-positive and false-negative reports do occur. Test Methodology: Note 01 This liquid based ThinPrep(R) pap test was screened with the use of an image guided system. . 01 The HPV DNA reflex criteria were not met with this specimen result therefore, no HPV testing was performed. FLAG LEGEND: L-Low Normal,H-High Normal,LL-Alert Low,HH-Alert High <-Panic Low,>-Panic High,A-Abnormal,AA-Critical Abnormal Performed at: [address] [facility] [place] [address] Moon Salas MD, Performed By: #### 1 [id number] #### [facility] [address] [place] [address] N. gonorrhoeae rRNA KATELYN+probe Ql (Cvx) Negative Invalid Interpretation Code Negative [facility] Comment on above: Performed By: #### 1 [id number] #### [facility] [address] [place] [address] T. vaginalis rRNA KATELYN+probe Ql (Unsp spec) Negative Invalid Interpretation Code Negative [facility] Comment on above: Result Comment: Perf ormed at: [facility] [id number] MD Maritza Mustafa Performed at: =[facility] [id number] MD Maritza Mustafa Performed By: #### 1 [id number] #### [facility] [address] [place] [address] C Urineon 09-04-2020 Bacteria identified Cx Nom (U) Microbiology PROCEDURE: Urine Culture [R1] SOURCE: U CleanCatch BODY SITE: COLLECTED DATE/TIME: 08/31/2020 11:59 EDT RECEIVED DATE/TIME: 09/02/2020 02:42 EDT START DATE/TIME: 09/02/2020 02:42 EDT FREE TEXT SOURCE: Kristyn BLACKMAN, Kristyn FINAL REPORTS Final Report [] Verified Date/Time: 09/04/2020 11:16 EDT 500 cfu/ml Mixed skin contaminants Performing Locations R1: This test was performed at: [facility], [address] [place] [address], [address] , , Normal [facility] Comment on above: Performed By: #### 2 [id number] ####[facility] [address] [place] [address] RPRon 09-02-2020 Reagin Ab RPR Ql (S) Non-Reactive Normal Non-Reactive [facility] Comment on above: Performed By: #### 2 [id number], [id number], [id number], [id number], [id number], [id number], 2407890 ####[id number] [place] [address] Rubella Abon 09-02-2020 Rubella Ab Positive Normal Positive [facility] Comment on above: Performed By: #### 2 742014, 2769331, [id number], [id number], 1697370, 3134514, 4554709 ####[facility] [address] [place] [address] HIV Screen 4th Generation wR fxon 09-01-2020 HIV 1+2 Ab+HIV1 p24 Ag IA Ql Non-Reactive Invalid Interpretation Code Non Reactive [facility] Comment on above: Result Comment: Perf ormed at: [facility] [address] [id number] PhD Treasure Bruner Performed By: #### 2 904371, 2816821, [id number], [id number], 7610463, 9851077, [id number] ####[facility] [address] [place] [address] Hep Bs Agon 09-01-2020 HBV surface Ag IA Ql Negative Invalid Interpretation Code Negative [facility] Comment on above: Result Comment: Perf ormed at: [facility] [address] [id number] PhD Treasure Bruner Performed By: #### 2 013773, 4028227, [id number], [id number], 7159822, 5661555, [id number] ####[address] [place] [address] ABO/Rhon 08-31-2020 ABO/Rh Positive Invalid Interpretation Code [facility] Comment on above: Performed By: #### 1 [id number] ####[facility] [address] [place] [address] ABSCon 08-31-2020 ABSC Gel Interp Negative Normal [facility] Comment on above: Performed By: #### 1 [id number], [id number] ####[facility] [address] [place] [address] Ambulatory Clinical Summaryo n 08-31-2020 Ambulatory Clinical Summary {[id number] -[id number]}CD:[id number] Normal [facility] Auto Diffon 08-31-2020 Basophils/100 WBC (Bld) 0.3 % Normal 0.0-2.0 [facility] Comment on above: Order Comment: Order Added by Discern Expert. Performed By: #### 2 007357, 5538160, [id number], [id number], 0935892, 9581783, 4365617 #### [facility] [address] [place] [address] Basophils/Leukocytes Auto (Bld) [Pure # fraction] 0.0 E9/L Normal 0.0-0.2 [facility] Comment on above: Order Comment: Order Added by Discern Expert. Performed By: #### 2 000939, 4559715, [id number], [id number], 3824578, 6437928, 5719242 #### [facility] [address] [place] [address] Eosinophils/100 WBC (Bld) 0.3 % Normal 0.0-8.0 [facility] Comment on above: Order Comment: Order Added by Discern Expert. Performed By: #### 2 132385, 4577943, [id number], [id number], 2233079, 9419748, 9506872 #### [facility] [address] [place] [address] 28251 Eosinophils/Leukocytes Auto (Bld) [Pure # fraction] 0.0 E9/L Normal 0.0-0.5 [facility] Comment on above: Order Comment: Order Added by Discern Expert. Performed By: #### 2 570151, 6375230, 135816597, 320700108, 6335304, 3969393, 2919913 #### [facility] [address] [place] [address] 62322 Lymphocytes/100 WBC (Bld) 20.5 % Normal 14.0-50.0 [facility] Comment on above: Order Comment: Order Added by Discern Expert. Performed By: #### 2 176317, 0023608, 690109944, 840342483, 7075495, 8849152, 8716171 #### [facility] [address] [place] [address] 68027 Lymphocytes/Leukocytes Auto (Bld) [Pure # fraction] 1.6 E9/L Normal 1.0-4.0 [facility] Comment on above: Order Comment: Order Added by Ty Expert. Performed By: #### 2 338382, 3276898, 973858033, 786531450, 3881087, 1756960, 4800251 #### [facility] [address] [place] [address] 31921 Monocytes/100 WBC (Bld) 5.7 % Normal 4.0-14.0 [facility] Comment on above: Order Comment: Order Added by Discern Expert. Performed By: #### 2 138249, 9450075, 297911042, 241590798, 9683303, 5121884, 4643273 #### [facility] [address] [place] [address] Monocytes/Leukocytes Auto (Bld) [Pure # fraction] 0.4 E9/L Normal 0.2-1.0 [facility] Comment on above: Order Comment: Order Added by Discern Expert. Performed By: #### 2 360346, 2246318, 102689125, 147807363, 3837325, 4265025, 0261148 #### [facility] [address] [place] [address] Neutrophils/100 WBC (Bld) 73.2 % Normal 36.0-75.0 [facility] Comment on above: Order Comment: Order Added by Discern Expert. Performed By: #### 2 961120, 5589787, 589838231, 239426480, 1193585, 2892890, 3810499 #### [facility] [address] [place] [address] Neutrophils/Leukocytes Auto (Bld) [Pure # fraction] 5.7 E9/L Normal 2.0-7.5 [facility] Comment on above: Order Comment: Order Added by Discern Expert. Performed By: #### 2 671023, 6331626, 824039773, 456378335, 1190629, 1403556, 6131436 #### [facility] [address] [place] [address] CBC w/ Auto Diffon 1 Erythrocyte distribution width (RBC) [Ratio] 13.9 % Normal 10.9-14.2 [facility] Comment on above: Performed By: #### 2 960694, 1054356, 652800413, 964661030, 9498725, 7919909, 7828614 #### [facility] [address] [place] [address] Hematocrit (Bld) [Volume fraction] 37.5 % Normal 34.0-46.0 [facility] Comment on above: Performed By: #### 2 643331, 7511736, 434856763, 941575387, 5559701, 6826744, 9851644 #### [facility] [address] 0908357 Hemoglobin (Bld) [Mass/Vol] 12.4 g/dL Normal 12.0-16.0 [facility] Comment on above: Performed By: #### 2 999554, 7608150, 488476713, 437071799, 4083136, 1735311, 9162215 #### [facility] [address] [place], [place] [address] MCH (RBC) [Entitic mass] 28.6 pg Normal 27.0-34.0 [facility] Comment on above: Performed By: #### 2 686380, 2122841, 378667255, 015676999, 7305793, 3886735, 8756643 #### [facility] [address] [place], [place] [address] MCHC (RBC) [Mass/Vol] 33.1 g/dL Normal 31.4-36.0 [facility] Comment on above: Performed By: #### 2 283289, 6998255, 928955235, 284654475, 9860924, 8675086, 6972476 #### [facility] [address] [place] [address] 11788 MCV (RBC) [Entitic vol] 86.3 fL Normal 80.0-100.0 [facility] Comment on above: Performed By: #### 2 728101, 6568324, 613789348, 304984396, 2367521, 4301598, 0369745 #### [facility] [address] [place] [address] Platelet mean volume (Bld) [Entitic vol] 8.3 fL Normal 6.4-10.8 [facility] Comment on above: Performed By: #### 2 915262, 6588926, 297071408, 240404022, 5154752, 9857621, 9460409 #### [facility] [address] [place] [address] Platelets (Bld) [#/Vol] 321.0 E9/L Normal 150.0-500.0 [facility] Comment on above: Performed By: #### 2 201932, 9580345, 680364911, 920172961, 7668586, 3373898, 6141012 #### [facility] [address] [place] [address] RBC (Bld) [#/Vol] 4.3 E12/L Normal 4.3-5.9 [facility] Comment on above: Performed By: #### 2 198849, 8689306, 956307167, 934099524, 7795239, 9244622, 7074651 #### [facility] [address] [place] [address] WBC corrected for nucl RBC Auto (Bld) [#/Vol] 7.8 E9/L Normal 4.0-11.0 [facility] Comment on above: Performed By: #### 2 721787, 1046342, 571929683, 888102177, 2449606, 3640619, 9278619 #### [facility] [address] [place] [address] Consent for Treatmenton 08-16 Consent for Treatment [id number] 106 [id number] Normal [facility] [id number] 08-31-2020 HbA1c (Bld) [Mass fraction] 5.0 % Normal <=5.9 [facility] Comment on above: Performed By: #### 2 994535, 0923331, 556929821, 000674870, 6273688, 6193333, 5195218 #### [facility] [address] [place] [address] Obstetrics Office/Clinic Not andrew 08-31-2020 Obstetrics Office/Clinic Note Chief Complaint 1st OB 10 Weeks 3. Nausea. Obstetric History History (0,0,0,1) # 1 Baby 1 Outcome Date: 07/25/2017 Outcome: Live Outcome or Result: Vaginal Gender: Male Gest Age: 39 weeks 6 days Wt: 3394 g Hospital: -- [facility] Labor: 13 hr 30 min Child's Name: -- Baby's Father: -- Complications: None Complications: None EGA and MURALI Gestational Age (EGA) and MURALI * Note: EGA calculated as of 08/31/2020 MURALI: 03/26/2021 EGA*: 10 weeks 3 days Type: Final Method Date: 08/08/2020 Method: Ultrasound (08/08/2020) Confirmation: Confirmed Description: -- Comments: Final EDC 03/26/21 d/b 7.1wk US not c/w LMP (EDC by LMP 03/16/21) Entered by: Gaye FISH MD on 08/10/2020 Other MURALI Calculations for this : No additional MURALI calculations have been recorded for this History of Present Illness 25 Years old patient here for first OB visit. LMP 06-09-20. Sure of dates, not on contraception at time of conception, no bleeding since LMP. Updated EDC based on US 08-08-20, 7w1d. A little nausea, no vomiting. Hx 40 wk vaginal delivery. No problems with or delivery. No first degree relatives with diabetes. No recent travel. Sister is CF carrier. She did have carrier testing with previous - need to get results from [facility]. Taking vitamins and vitamin B6. Denies smoking, alcohol, or drug use. Last pap 01-14-17. 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 Review of Systems Constitutional: No fever, No chills, No headache. Skin: No rash, No lesions. Respiratory: No shortness of breath. Cardiovascular: No peripheral edema. Gastrointestinal: Yes nausea, No vomiting, Noheartburn, No diarrhea, No constipation. Genitourinary: No dysuria. Gynecology: No abnormal vaginal discharge, No vaginal itching/burning, No bleeding. Physical Exam Vitals & Measurements BP: 126/74 HT: 167 cm HT: 167.0 cm WT: 89.8 kg WT: 89.8 kg BMI: 32.2 Examinations Glucose Urine Dipstick: Negative Protein Urine Dipstick: Negative Weight Measured: 89.8 kg Systolic Blood Pressure: 126 mmHg Diastolic Blood Pressure: 74 mmHg D-EGA at Documented Date, Time: 10W 3D Labor Signs/Symptoms: Nausea Baby A - Activity: Present per patient Baby A - FHR: 169 bpm Next Appointment: 4 week(s) Antepartum Comment: first OB. . obesity BMI 32. General Exam: Constitutional: alert, no acute distress, well hydrated, well developed, well nourished. Skin: normal color, no rashes, no lesions, no unusual bruising. Head: atraumatic, normocephalic. Eyes: EOM intact, no injection, no nystagmus, no icterus. Ears: no external deformities, gross hearing intact. Respiratory: no respiratory distress. Abdomen: nondistended, nontender, no guarding. Spine: normal mobility, no deformities. Extremities: no deformities, no clubbing, no cyanosis, no edema. Neurol: normal, cranial nn II-XII grossly intact, sensation intact, motor intact, station & gait normal. Psych: oriented to all spheres, affect and mood appropriate, normal interaction, good eye contact. Pelvic Exam: Vulva: normal appearance, normal hair distribution, no lesions or masses. Urethra: normal, no masses, non-tender, no discharge. Bladder: normal, non-tender, non-distended. Vagina: normal, rugated, physiologic discharge, no lesions, no masses, adequate pelvic support. Cervix: normal, midposition, no motion tenderness, no lesions. Uterus: smooth, mobile, non-tender, adequate support. Adnexa: normal, no masses, mobile, nontender. Assessment/Plan 1. Obesity complicating , first trimester (O99.211: Obesity complicating , first trimester) Recommend limiting weight gain to 11-20lbs in based on BMI by IOM. Discussed healthy diet focusing on fruits, vegetables, lean proteins, whole grains, and limiting sugars and empty calories. Recommend exercising 30 minutes per day at least 5 days per week. Ordered: Office Visit Level 3 Est 28809 2. Supervision of high risk in first trimester (O09.91: Supervision of high risk , unspecified, first trimester) New OB education provided. Folder given. Discussed safe medications in , nutrition, travel, bloodwork, genetic screening, interval of appointments, ultrasounds, how to reach us during or after office hours. Discussed genetic screening with pt. Though she is low risk due to age and family history, we offer to all patients. Offered testing to see if baby has increased risk of Down syndrome, Trisomy 18, or spina bifida. Can refer to [facility] for NT/First trimester testing (combination bloodwork and ultrasound) between 11-13 weeks or can do blood draw at outpatient lab (quad screen) between 15-18 weeks. Agreeable to quad screen. Follow up in 4 wks. Ordered: ABO/Rh Antibody Screen CBC w/ Auto Diff Drug Screen Urine Hepatitis B Surface Antigen HgbA1c HIV Screen (more content not included)... Normal [facility] Comment on above: Result Comment: Elec tronically Signed By: Kristyn BLACKMAN\.br\Date and Time Signed: 08/31/20 11:22 EDT PAP [id number] 08-31-2020 Collection Technique BROOM-ALONE Normal Fis [facility] Comment on above: Performed By: #### 1 [id number] #### [facility] [address] [place] [address] Gynecological Body Site CERVIX Normal F [facility] Comment on above: Performed By: #### 1 [id number] #### [facility] [address] [place] [address] Other Patient Information Normal [facility] Comment on above: Performed By: #### 1 [id number] #### [facility] [address] [place] [address] U Drug Screenon 08-31-2020 Amphetamines Screen method >1000 ng/mL Ql (U) Negative Normal Negative [facility] Comment on above: Result Comment: Nega tive Cutoff: <1000 ng/mL Performed By: #### 1 [id number], [id number] #### [facility] [address] [place] [address] Barbiturates Screen Ql (U) Negative Normal Negative [facility] Comment on above: Result Comment: Nega tive Cutoff: <200 ng/mL Performed By: #### 1 [id number], [id number] #### [facility] [address] [place] [address] Benzodiazepines Ql (U) Negative Normal Negative [facility] Comment on above: Result Comment: Nega tive Cutoff: <200 ng/mL Performed By: #### 1 [id number], [id number] #### [facility] [address] [place] [address] Cocaine Ql (U) Negative Normal Negative [facility] Comment on above: Result Comment: Nega tive Cutoff: <300 ng/mL Performed By: #### 1 [id number], [id number] #### [facility] [address] [place] [address] Opiates Screen Ql (U) Negative Normal Negative [facility] Comment on above: Result Comment: Nega tive Cutoff: <300 ng/mL Performed By: #### 1 [id number], [id number] #### [facility] [address] [place] [address] Phencyclidine Screen method >25 ng/mL Ql (U) Negative Normal Negative [facility] Comment on above: Result Comment: Nega tive Cutoff: <25 ng/mL These drug screen results are to be used for medical (i.e., treatment) purposes only. Unconfirmed drug screening results must not be used for non-medical purposes (e.g., employment testing, legal testing). Performed By: #### 1 [id number], [id number] #### [facility] [address] [place] [address] Tetrahydrocannabinol Screen method >50 ng/mL Ql (U) Negative Normal Negative [facility] Comment on above: Result Comment: Nega tive Cutoff: <50 ng/mL Performed By: #### 1 [id number], [id number] #### [facility] [address] [place] [address] US 1st Trimesteron 08-10-2020 1st Trimester Exam Date/Time: 08/08/2020 16:16 EDT Reason for Exam: Confirm dates. EDC 06/09/20;Size/date gestation Report IMPRESSION: SINGLE LIVE INTRAUTERINE CORRESPONDING TO Composite Ultrasound Age: 7 weeks, 1 days, +/- 1 week. APPROXIMATELY 2 CM PROBABLE CORPUS THE RIGHT OVARIAN CYST. NO OTHER FINDINGS OF CONCERN IDENTIFIED. EXAM: US 1st Trimester DATE: 08/08/2020 CLINICAL HISTORY: Size/date gestation, Confirm dates. EDC 06/09/20. LMP: 06/09/2020. Gestational Age by LMP: 8 weeks, 4 days COMPARISON: None available for this . TECHNIQUE: Transabdominal ultrasound was performed of the pelvis. FINDINGS: A gestational sac is present within the central aspect of the uterine body/fundus, without significant surrounding subchorionic hemorrhage. Shubuta Rump Length: 1.0 cm, which corresponds Composite Ultrasound Age: 7 weeks, 1 days, +/- 1 week. The estimated date of delivery by measurements is: MURALI from average ultrasound age: 0103/26/2021. The MURALI from LMP: 03/16/2021, consistent with unsure dates. cardiac activity measures approximately 136 bpm, without visualized arrhythmia. An approximately 2 cm cyst within an otherwise unremarkable right ovary is probably a corpus luteum. There is no significant free fluid, or other findings of concern identified. The uterus measurements and an estimated volume are: Uterus Length: 11.5 cm Uterus Width: 6.4 cm Uterus Height: 6.1 cm Report Uterus Volume: 233.0 cm3 The right ovary measurements and estimated volume are: Right Ovary Length: 3.6 cm Right Ovary Width: 3.0 cm Right Ovary Height: 3.4 cm Right Ovary Volume: 19.4 cm3 The left ovary measurements and estimated volume are: Left Ovary Length: 2.4 cm Left Ovary Width: 1.8 cm Left Ovary Height: 2.0 cm Left Ovary Volume: 4.6 cm3 FINAL REPORT Dictated: 08/10/2020 1:48 pm Carlos Sánchez MD Signed (Electronic Signature): 08/10/2020 1:48 pm Signed by: Carlos Sánchez MD Transcribed by: RUSS Technologist: TRAVIS Technical Comments LMP : 06/09/20 History 2 Para 1 Transabdominal Ultrasound Performed Size < Dates Uterus Position Anteverted Normal [facility] Ambulatory Clinical Summaryo n 08-08-2020 Ambulatory Clinical Summary {[id number] Normal [facility] Ambulatory Clinical Summaryo n 08-02-2020 Ambulatory Clinical Summary {[id number] Normal [facility] Obstetrics Office/Clinic Not andrew 08-02-2020 Obstetrics Office/Clinic Note Chief Complaint Confirmation of , LMP 06-09-2020, positive urine HCG, MURALI 03-16-2021 Obstetric History History (0,0,0,1) # 1 Baby 1 Outcome Date: 07/25/2017 Outcome: Live Outcome or Result: Vaginal Gender: Male Gest Age: 39 weeks 6 days Wt: 3394 g Hospital: -- [facility] Labor: 13 hr 30 min Child's Name: -- Baby's Father: -- Complications: None Complications: None EGA and MRUALI Gestational Age (EGA) and MURALI * Note: EGA calculated as of 08/02/2020 MURALI: 03/16/2021 EGA*: 7 weeks 5 days Type: Authoritative Method Date: 06/09/2020 Method: Last Menstrual Period (06/09/2020) Confirmation: Confirmed Description: -- Comments: -- Entered by: Bindu Navas LPN on 08/02/2020 Other MURALI Calculations for this : No additional MURALI calculations have been recorded for this History of Present Illness 25 yo @ 7 5/7 wga with LMP of 06/09/20, which gives her an EDC of 03/16/21. Mirena removed in Dec. Mostly monthly menses, but can be off by 4-5 days. Sure of date, but menses have been slightly off. Was planned . Taking PNV. Had a normal and normal with last . Review of Systems Constitutional: No fever, No chills, No sweats, No weakness. Respiratory: No shortness of breath, No cough. Cardiovascular: No chest pain, Noperipheral edema. Physical Exam Vitals & Measurements BP: 118/68 HT: 167 cm HT: 167.0 cm WT: 94.8 kg WT: 94.8 kg BMI: 33.99 Examinations Weight Measured: 94.8 kg Systolic Blood Pressure: 118 mmHg Diastolic Blood Pressure: 68 mmHg D-EGA at Documented Date, Time: 7W 5D Antepartum Comment: Thinks she had carrier testing in last preg b/c sister CF carrier. Thinks was neg. Ordered dating US General Exam: Constitutional: alert, no acute distress, well hydrated, well developed, well nourished. Skin: normal color, no rashes, no lesions, no unusual bruising. Head: atraumatic, normocephalic. Eyes: EOM intact, no nystagmus, no icterus. Ears: no external deformities, gross hearing intact. Mouth: normal dentition. Respiratory: no respiratory distress. Extremities: no deformities, no clubbing, no cyanosis. Neurol: normal, cranial nn II-XII grossly intact, sensation intact, motor intact, station & gait normal. Psych: oriented to all spheres, affect and mood appropriate, normal interaction, good eye contact. Assessment/Plan Rec vit B6 for occas nausea that is random. Ordered dating US. Thinking about 1st trimester screening. Unsure thus far. RTC for new ob visit with Kristyn. 1. 7 weeks gestation of (Z3A.01: Less than 8 weeks gestation of ) Ordered: Office Visit Level 3 Est 45444 US 1st Trimester 2. Amenorrhea (N91.2: Amenorrhea, unspecified) Ordered: HCG, Urine POC 13539 Office Visit Level 3 Est 49442 US 1st Trimester 3. Positive test (Z32.01: Encounter for test, result positive) Ordered: HCG, Urine POC 25454 Office Visit Level 3 Est 47002 US 1st Trimester Follow-up With When Contact Information POLINA ONEAL, Gaye Braden In [address] [place] [address]- Additional Instructions: Problem List/Past Medical History Ongoing Historical Procedure/Surgical History IUD - Removal of intrauterine device (12/07/2019), wisdom teeth x4 removed. Medications Vitafusion Gummy DHA and Folic Acid, 2 tab(s), Oral, Daily Allergies No Known Allergies Social History Alcohol - Denies Alcohol Use, 11/10/2018 DENIES, 12/07/2019 Substance Abuse - Denies Substance Abuse, 11/10/2018 DENIES, 12/07/2019 Tobacco - Denies Tobacco Use, 07/21/2017 Former smoker, quit more than 30 days ago Tobacco Use:. Never Smokeless Tobacco Use:. Cigarettes, Started age 19.0 Years. Stopped age 21 Years., 08/02/2020 Family History Endometriosis: Mother. Immunizations Vaccine Date Status Comments diphtheria/pertussis, acel/tetanus adult 07/26/2017 Given Other (see comment) Lab Results Ambulatory Point of Care Results HCG, Urine: Positive (08/02/20 15:36:00) Normal [facility] Comment on above: Result Comment: Elec tronically Signed By: POLINA ONEAL, Gaye Braden\.br\Date and Time Signed: 08/02/20 16:19 EDT Patient Educationon 08-03-19 Patient Education Obstetrics and Gynecology Care care is health care during . It helps you and your unborn baby (fetus) stay as healthy as possible. care may be provided by a corrosion technician, a family practice health care provider, or a childbirth and specialist (pipe fitter apprentice). How does this affect me? During , you will be closely monitored for any new conditions that might develop. To lower your risk of complications, you and your health care provider will talk about any underlying conditions you have. How does this affect my baby? Early and consistent care increases the chance that your baby will be healthy during . care lowers the risk that your baby will be: ? Born early (prematurely). ? Smaller than expected at (small for gestational age). What can I expect at the first care visit? Your first care visit will likely be the longest. You should schedule your first care visit as soon as you know that you are . Your first visit is a good time to talk about any questions or concerns you have about . At your visit, you and your health care provider will talk about: ? Your medical history, including: ? Any past pregnancies. ? Your family's medical history. ? The baby's father's medical history. ? Any long-term (chronic) health conditions you have and how you manage them. ? Any surgeries or procedures you have had. ? Any current omvf-bzi-gxwttqd or prescription medicines, herbs, or supplements you are taking. ? Other factors that could pose a risk to your baby, including: ? Your home setting and your stress levels, including: ? Exposure to abuse or violence. ? Household financial strain. ? Mental health conditions you have. ? Your daily health habits, including diet and exercise. Your health care provider will also: ? Measure your weight, height, and blood pressure. ? Do a physical exam, including a pelvic and breast exam. ? Perform blood tests and urine tests to check for: ? Urinary tract infection. ? Sexually transmitted infections (STIs). ? Low iron levels in your blood (anemia). ? Blood type and certain proteins on red blood cells (Rh antibodies). ? Infections and immunity to viruses, such as hepatitis B and rubella. ? HIV (human immunodeficiency virus). ? Do an ultrasound to confirm your baby's growth and development and to help predict your estimated due date (MURALI). This ultrasound is done with a probe that is inserted into the vagina (transvaginal ultrasound). ? Discuss your options for genetic screening. ? Give you information about how to keep yourself and your baby healthy, including: ? Nutrition and taking vitamins. ? Physical activity. ? How to manage symptoms such as nausea and vomiting (morning sickness). ? Infections and substances that may be harmful to your baby and how to avoid them. ? Food safety. ? Dental care. ? Working. ? Travel. ? Warning signs to watch for and when to call your health care provider. How often will I have care visits? After your first care visit, you will have regular visits throughout your . The visit schedule is often as follows: ? Up to week 28 of : once every 4 weeks. ? 28?36 weeks: once every 2 weeks. ? After 36 weeks: every week until delivery. Some women may have visits more or less often depending on any underlying health conditions and the health of the baby. Keep all follow-up and care visits as told by your health care provider. This is important. What happens during routine care visits? Your health care provider will: ? Measure your weight and blood pressure. ? Check for heart sounds. ? Measure the height of your uterus in your abdomen (fundal height). This may be measured starting around week 20 of . ? Check the position of your baby inside your uterus. ? Ask questions about your diet, sleeping patterns, and whether you can feel the baby move. ? Review warning signs to watch for and signs of labor. ? Ask about any symptoms you are having and how you are dealing with them. Symptoms may include: ? Headaches. ? Nausea and vomiting. ? Vaginal discharge. ? Swelling. ? Fatigue. ? Constipation. ? Any discomfort, including back or pelvic pain. Make a list of questions to ask your health care provider at your routine visits. What tests might I have during care visits? You may have blood, urine, and imaging tests throughout your , such as: ? Urine tests to check for glucose, protein, or signs of infection. ? Glucose tests to check for a form of diabetes that can develop during (gestational diabetes mellitus). This is usually done around week 24 of . ? An ultrasound to check your baby's growth and development and to check for defects. This is u (more content not included)... Normal [facility] COMPARISON IMPORTOrdered By: Provider System on 2020 This order has been auto-finalized and does not contain a result. [facility] US COMPARISON IMPORTOrdered By: Provider System on 2020 This order has been auto-finalized and does not contain a result. [facility] MAMMO DIAGNOSTIC WITH RHYS L IBRAHIMATon 06-03-2020 MAMMO DIAGNOSTIC WITH RHYS LEFT CLINICAL INDICATION: lump EXAM DESCRIPTION: MAMMO DIAGNOSTIC WITH RHYS LEFT; US BREAST LIMITED UNILATERAL LEFT 06/03/2020 9:24 am; 06/03/2020 9:38 am COMPARISON: No comparison. TECHNIQUE: Routine CC and MLO views were obtained of the left breast. Tomosynthesis was performed. Ultrasound of the left breast was also performed. FINDINGS: Scattered fibroglandular parenchyma is seen. The patient describes a palpable abnormality in the superior aspect of the left breast. A marker is placed over this area. There is no dominant mass, suspicious cluster of microcalcification or area of architectural distortion seen in the left breast. Ultrasound of the left breast shows no focal abnormalities. The patient described an area the size of a pea and indicated the area at the time of the study. IMPRESSION: Negative diagnostic left breast mammogram and left breast ultrasound. Lack of findings should not preclude further evaluation of a persistent palpable abnormality. BI-RADS: 1 Negative. The patient will be scheduled to receive a reminder letter. Computer Aided Diagnosis (CAD) was utilized. BIRADS 1: Negative Normal [facility] US BREAST LIMITED UNILATERAL LEFTon 06-03-2020 US BREAST LIMITED UNILATERAL LEFT CLINICAL INDICATION: lump EXAM DESCRIPTION: MAMMO DIAGNOSTIC WITH RHYS LEFT; US BREAST LIMITED UNILATERAL LEFT 06/03/2020 9:24 am; 06/03/2020 9:38 am COMPARISON: No comparison. TECHNIQUE: Routine CC and MLO views were obtained of the left breast. Tomosynthesis was performed. Ultrasound of the left breast was also performed. FINDINGS: Scattered fibroglandular parenchyma is seen. The patient describes a palpable abnormality in the superior aspect of the left breast. A marker is placed over this area. There is no dominant mass, suspicious cluster of microcalcification or area of architectural distortion seen in the left breast. Ultrasound of the left breast shows no focal abnormalities. The patient described an area the size of a pea and indicated the area at the time of the study. IMPRESSION: Negative diagnostic left breast mammogram and left breast ultrasound. Lack of findings should not preclude further evaluation of a persistent palpable abnormality. BI-RADS: 1 Negative. The patient will be scheduled to receive a reminder letter. Computer Aided Diagnosis (CAD) was utilized. BIRADS 1: Negative Normal [facility] Vital Signs Date Time Vital Sign Value Performing Clinician Facility 06-04-2024 08:24-0400 Body height 167.64 cm [facility] 06-04-2024 08:24-0400 Body mass index (BMI) [Ratio] 33.5 kg/m2 [facility] 06-04-2024 08:24-0400 Body temperature 98.2 [degF] [facility] 06-04-2024 08:24-0400 Body weight 94.34 kg [facility] 06-04-2024 08:24-0400 Diastolic blood pressure 60 mm[Hg] [facility] 06-04-2024 08:24-0400 Heart rate 72 /min [facility] 06-04-2024 08:24-0400 SaO2% (BldA) [Mass fraction] 98 % [facility] 06-04-2024 08:24-0400 Systolic blood pressure 116 mm[Hg] [facility] 12-30-2023 15:32-0400 Body height 167.64 cm [facility] 12-30-2023 15:32-0400 Body mass index (BMI) [Ratio] 34.7 kg/m2 [facility] 12-30-2023 15:32-0400 Body temperature 96.4 [degF] [facility] 12-30-2023 15:32-0400 Body weight 97.52 kg [facility] 12-30-2023 15:32-0400 Diastolic blood pressure 72 mm[Hg] [facility] 12-30-2023 15:32-0400 Heart rate 90 /min [facility] 12-30-2023 15:32-0400 SaO2% (BldA) [Mass fraction] 98 % [facility] 12-30-2023 15:32-0400 Systolic blood pressure 114 mm[Hg] [facility] 12-05-2023 08:25-0400 Body height 167.64 cm [facility] 12-05-2023 08:25-0400 Body mass index (BMI) [Ratio] 33.7 kg/m2 [facility] 12-05-2023 08:25-0400 Body temperature 97.6 [degF] [facility] 12-05-2023 08:25-0400 Body weight 94.8 kg [facility] 12-05-2023 08:25-0400 Diastolic blood pressure 68 mm[Hg] [facility] 12-05-2023 08:25-0400 Heart rate 67 /min [facility] 12-05-2023 08:25-0400 SaO2% (BldA) [Mass fraction] 97 % [facility] 12-05-2023 08:25-0400 Systolic blood pressure 110 mm[Hg] [facility] 10-18-2023 09:28-0400 Body height 167.64 cm [facility] 10-18-2023 09:28-0400 Body mass index (BMI) [Ratio] 34 kg/m2 [facility] 10-18-2023 09:28-0400 Body weight 95.7 kg [facility] 10-18-2023 09:28-0400 Diastolic blood pressure 74 mm[Hg] [facility] 10-18-2023 09:28-0400 Heart rate 75 /min [facility] 10-18-2023 09:28-0400 SaO2% (BldA) [Mass fraction] 99 % [facility] 10-18-2023 09:28-0400 Systolic blood pressure 116 mm[Hg] [facility] 09-27-2021 09:00-0400 Body height 167.64 cm Claire Del Other 71lbs Other 09-27-2021 09:00-0400 Body mass index (BMI) [Ratio] 27.44 kg/m2 Claire Calvrubin Other 71lbs Other 09-27-2021 09:00-0400 Body weight 77.11 kg Claire Del Other 71lbs Other 2020 10:00-0400 Body height 167.6 cm Lee Gary CNP Work Phone: [facility] 2020 10:00-0400 Body mass index (BMI) [Ratio] 33.89 kg/m2 Lee Gary CNP Work Phone: [facility] 2020 10:00-0400 Body weight 95.25 kg Lee Gary CNP Work Phone: [facility] Encounters Encounter Date Encounter Type Care Provider Facility Start: 06-04-2024 End: 06-04-2024 ambulatory [facility] Work Phone: Start: 06-04-2024 End: 06-04-2024 Patient encounter procedure [facility] Work Phone: Start: 12-30-2023 End: 12-30-2023 ambulatory [facility] Work Phone: Start: 12-30-2023 End: 12-30-2023 Patient encounter procedure [facility] Phys[facility] Work Phone: Start: 12-05-2023 Patient encounter status [facility] Start: 12-05-2023 End: 12-05-2023 ambulatory [facility] Work Phone: Start: 12-05-2023 End: 12-05-2023 Encounter for general adult medical examination without abnormal findings [facility] Start: 12-05-2023 End: 12-05-2023 Patient encounter procedure [facility] Physician [facility] Work Phone: Start: 10-18-2023 End: 10-18-2023 ambulatory [facility] Work Phone: Start: 10-18-2023 End: 10-18-2023 Patient encounter procedure [facility] Physician [facility] Work Phone: Start: 09-11-2023 End: 09-11-2023 ambulatory AGGIE NIELSON Not Available Start: 05-09-2022 End: 05-10-[address] FRANCISCA ZAMUDIO Facility:[facility] Start: 11-11-2021 End: 11-11-[address] DOCTOR WEINER Facility:[facility] Start: 09-27-2021 End: 09-27-2021 ambulatory Claire Mathis Other [facility] Other Start: 09-27-2021 Office outpatient ne w 30 minutes Claire Mathis [facility] Start: 03-05-2021 End: 03-05-2021 ambulatory OTHER [facility] Facility:[facility] LOC Start: 02-17-2021 ambulatory LEE GARY [facility] Ambulatory Start: 07-18-2020 ambulatory LEE GARY [facility] Ambulatory Start: 2020 End: 2020 ambulatory SWAPNIL [facility] Start: 2020 End: 07-06-2020 ambulatory PROVIDER NOT IN SYSTEM [facility] Start: 2020 End: 2020 Office outpatient new 30 minutes Swapnil Skinner CNP Work Phone: [facility] Comment on above: Left breast mass (Pr imary Dx) Start: 2020 End: 2020 Subsequent hospital visit by physician Provider Not In System [facility] External Films Comment on above: Arrived Start: 06-03-2020 ambulatory SWAPNIL SKINNER Facili ty:[facility] LOC Start: 05-18-2020 ambulatory OTHER [facility] Facility:[facility] LOC Start: 08-30-2016 End: 08-30-2016 Ambulatory [facility] Facility: Procedures Date Procedure Procedure Detail Performing Clinician Start: 12-30-2023 Quick Strep (POC) Start: 2020 Ultrasonography Externa l Transcribed Start: 2020 Mammography External T ranscribed Plan of Treatment Date Care Activity Detail Author Start: 07-27-2027 Tetanus vaccination Tetanus: Every 10yrs [facility] Start: 01-10-2021 End: 01-10-2021 Patient encounter procedure 01/10/2021 Office Visit Breast Surgery Lee Gary, [employer] [address] [facility] [address] [place] [address] [phone] [facility] Start: 11-17-2019 Influenza vaccination Sequential Influenza Vaccine (#1) [facility] Start: 07-04-2013 Hepatitis C screening Hepatitis C Screening [facility] Start: 2011 COVID-19 Vaccine (1) COVID-19 Vaccine (1) [facility] Start: 07-04-2010 HIV screening HIV Screening [facility] Start: 2007 Depression screening using PHQ-9 (Patient Health Questionnaire 9) score Depression Screening (PHQ9) [facility] Start: 07-04-1998 History and physical examination, annual for health maintenance Wellness Visit [facility] Start: 1995 Screening for malignant neoplasm of cervix Pap Smear [facility] Lutropin [Units/volu me] in Serum or Plasma [facility] MR Unspecified body region [facility] Payers Date Payer Category Payer Unknown [employer]/PREF/HMO/PPO [id number] 2019-Present [id number] 2019 Unknown [id number] 2015 Private Health Insurance [id number] 1995 Unknown [id number] 00 1995 Unknown [id number] 00 1995 Unknown [id number] 78 1995 Unknown [id number] 78 1995 Unknown [id number] 2.16.840.1.082889.3.579.2.4 78 1995 Unknown [id number] 2.16.840.1.543137.3.579.2.9 03 1995 Unknown [id number] [id number] 03 1995 Unknown [id number] [id number] 03 1995 Unknown [id number] 2.16.840.1.383258.3.579.2.5 93 1995 Unknown [id number] [id number] 93 1995 Unknown [id number] [id number] 259 1959 Blue Cross Blue Shield TQSAN [id number] 1959 Unknown [id number] 1959 Unknown [id number] Self-pay Self Pay [id number] Social History Date Type Detail Facility Start: 2020 End: 10-18-2023 Tobacco smoking status NHIS Former smoker [facility] End: 10-16-2016 History of tobacco use Current smoker [facility] Start: 2020 Cigarettes smoked current (pack per day) - Reported [facility] Start: 2020 Tobacco use and exposure Never used [facility] Start: 2020 Alcohol intake 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 [employer] Other Start: 1995 Sex Assigned At Female F [facility] Start: 06-04-2024 Sex Female (finding) [facility] Clinical Notes 11-17-2019 to 09-27-2021 Note Date & Type Note Facility 09-27-2021 Evaluation note Encounter Date Diagnosis Assessment Notes Sep, Lateral epicondyliti s, left elbow (ICD-10 - M77.12) Advised patient this appears to be a form inflammation at the extensor tendon. Discussed treatment as occupational therapy with modalities, topical NSAID, and oral steroid. Formal OT order provided as well as instruction on topical diclofenac, oral NSAID and topical lidocaine. Sep, Left carpal tunnel syndrome (ICD-10 - G56.02) Advised patient appears to have carpal tunnel. Discussed treatment as night splints as well as cortisone injection to the carpal tunnel. Night splint provided today. 71lbs Other 01-13-2022 NoteDATE OF DISCHARGE: 03/23/2021 The patient is without complaints. Positive flatus. Positive void. Vital signs are stable, afebrile. Breasts non-tender, non-pathologic. Abdomen fundus firm and below the umbilicus. She has scant lochia. The perineum is intact. The patient is ready for release. Good instructions are given. The patient is to return to my office in six weeks. She is given the following prescriptions for her home use: Motrin and vitamins. DISCHARGE DIAGNOSIS: Vaginal delivery. Course: Positive for COVID in February of 2021. Intrapartum Course: Spontaneous vaginal delivery of a 6 pound 15 ounce female infant with Apgars of8 and 9, nuchal reduced x1, without complications. Course: Without complications. Antoni Moreira M.D. Dictated: 03/28/2021 [id number] Transcribed: 03/29/2021[facility]:Result Comment: Electronically Signed By: Harish ONEAL, Antoni Valdivia\.br\Date and Time Signed: 03/30/21 12:42 [id number] NoteThe following Patient Education Materials have been given to the patient: [facility]01-05-2022 NotePatient: ABDULLAHI ROMERO Age: 25 years Sex: Female : 1995 Associated Diagnoses: None Author: Aggie Nielson MD Basic Information Gestational Age: Gestational Age (EGA) and MURALI * Note: EGA calculated as of 03/22/2021 MURALI: 03/26/2021 EGA*: 39 weeks 3 days Type: Final Method Date: 08/08/2020 Method: Ultrasound (08/08/2020) Confirmation: Confirmed Description: -- Comments: Final EDC 03/26/21 d/b 7.1wk US not c/w LMP (EDC by LMP 03/16/21) Entered by: Gaye FISH MD on 08/10/2020 Other MURALI Calculations for this : No additional MURALI calculations have been recorded for this . Chief Complaint 03/21/2021 21:56 EST induction History of Present Illness Patient is Para Information: : 2 Para Term: 1 Para : 0 Para Abortions: 0 Para Livin. Pt was scheduled for induction, but was found to be in early spont labor. She is admitted in anticipation of delivery. Review of Systems Constitutional: No fever. Respiratory: No shortness of breath. Health Status Allergies: Allergic Reactions (All) No Known Allergies Problem list: All Problems Obesity complicating , second trimester / SNOMED CT 1591323647 / Confirmed / SNOMED CT 124862347 / Confirmed Supervision of high risk in second trimester / SNOMED CT 58815201 / Confirmed Histories History History (0,0,0,1) # 1 Baby 1 Outcome Date: 07/25/2017 Outcome: Live Outcome or Result: Vaginal Gender: Male Gest Age: 39 weeks 6 days Wt: 3394 g Hospital: [facility] Labor: 13 hr 30 min Child's Name: -- Baby's Father: -- Complications: None Complications: None Family History: Endometriosis Mother Procedure history: IUD - Removal of intrauterine device ([id number]) on 12/07/2019 at 24 Years. wisdom teeth x4 removed. Social History Social & Psychosocial History Social History Alcohol Denies Alcohol Use (11/10/2018) DENIES Substance Abuse Denies Substance Abuse (11/10/2018) DENIES Tobacco Denies Tobacco Use (07/21/2017) Former smoker, quit more than 30 days ago Tobacco Use:. Never Smokeless Tobacco Use:. Cigarettes, Started age 19.0 Years. Stopped age 21 Years. Psychosocial History Family/Social (03/21/21) Emotional Support Available: Yes Coping: Effective Father of Baby Involved: Yes Domestic Violence Screen (03/21/21) Have You Ever Been Emotionally Or Physically Abused by Your Partner: No Have You Been Physically Hurt by Someone Within the Past Year: No Within the Last Year, Has Anyone Forced You to Have Sexual Activity: No (11/16/20) Have You Ever Been Emotionally Or Physically Abused by Your Partner: No Have You Been Physically Hurt by Someone Within the Past Year: No Within the Last Year, Has Anyone Forced You to Have Sexual Activity: No . Physical Examination General: Alert and oriented. HENT: Normocephalic. Respiratory: Respirations are non-labored. Obstetric Exam Contractions noted: every 4 minutes, regular pattern. Rojas/ Baby A evaluation: presentation/ presenting part vertex. Cervix: dilated 3 cm, station/ evidence of descent -1, membrane status intact. Musculoskeletal Normal range of motion. Neurologic: Alert, Oriented. Psychiatric: Cooperative. Impression and Plan Diagnosis 39 weeks gestation of ([id number] Z3A.39, Discharge, Medical). Encounter for supervision of other normal , third trimester ([id number] Z34.83, Discharge, Medical). condition: Stable. Interpretation category: I. Maternal condition: Stable. Plan Admit.[facility]Comment on above:Result Comment: Electronically Signed By: Naga ONEAL, Aggie Zaidi.ann\Date and Time Signed: 03/22/21 08:17 EST 03-22-2021 [id number]:[id number]09-01-2021 NoteThe following Patient Education Materials have been given to the patient: EducationMaterialOur [facility]04-20-2021 History of Present illness Narrative* Lee Gary CNP - 2020 10:20 AM EDT TODAY'S DATE: 2020 PATIENT: Abdullahi Romero : 1995, 25 y.o. Breast Cancer Risk Assessment: 5-year risk: N/A Lifetime Risk: N/A - patient < 35 years old Chief Complaint Patient presents with Consult New patient with left breast mass CAT 1. [facility] and images are in system HPI: 25 y.o. female presents today for evaluation and management of a left breast mass. She was referredby Swapnil Skinner CNP. She denies significant past medical history. Her surgical history includes orthopedic surgery. She denies family hsitory of breast or ovarian cancer although a paternal aunthad pancreatic cancer in her 30s. She previously smoked tobacco for 1.5 years and quit in October 2016. She denies alcohol or other drug use. On review of systems today she endorses breast lumps, painful lump, breast pain. She noted a left breast mass on her self exam since January 2020. She feels it fluctuates up and down in size from pea-sized to grape-sized. It does get more tender when it is larger which she usually notes the week following her period. She had a left diagnostic mammogram with tomosynthesis and a left breast ultrasound at [facility] on June 03, 2020 which shows scattered fibroglandular parenchyma no dominant masses or suspicious calcifications on mammogram and ultrasound showed no focal abnormalities, BI-RADS Category 1. OUTPATIENT SCHEDULER history: Menarche: 13 /Para: Age at 1st live : 23 Menopausal status: pre Age at menopause: n/a OCP use: in past HRT use: no Family History of Breast Cancer: No known family history of breast cancer. Cancer-related family history includes Pancreatic cancer (age of onset: 32) in her paternal aunt. Patient Medical History: Past Medical History: Diagnosis Date Breast mass 2020 left- on self exam Breast pain Past Surgical History: Procedure Laterality Date ORTHOPEDIC SURGERY Left 11/2019 radial tunnel release WISDOM TOOTH EXTRACTION WISDOM TOOTH EXTRACTION 2013 Family History Problem Relation Age of Onset Pancreatic cancer Paternal Aunt 32 No Known Problems Mother No Known Problems Father No Known Problems Sister Social History Occupational History Not on file Tobacco Use Smoking status: Former Smoker Packs/day: 0.50 Years: 1.50 Pack years: 0.75 Quit date: 10/16/2016 Years since quittin.7 Smokeless tobacco: Never Used Substance and Sexual Activity Alcohol use: No Drug use: No Sexual activity: Not on file Patient's Medications New Prescriptions No medications on file Previous Medications CHOLECALCIFEROL, VITAMIN D3, (CHOLECALCIFEROL) 400 UNIT TAB Take 400 Units by mouth daily . MULTIVITAMIN WITH MINERALS TABLET Take 1 tablet by mouth daily. NORGESTIMATE-ETHINYL ESTRADIOL (ORTHO-CYCLEN) 0.25-35 MG-MCG PER TABLET Take 1 tablet by mouth daily. Modified Medications No medications on file Discontinued Medications No medications on file Allergies: Patient has no known allergies. Review of Systems Constitutional: Negative for activity change, appetite change, chills, diaphoresis, fatigue, fever and unexpected weight change. HENT: Negative for congestion, dental problem, hearing loss, sore throat, tinnitus, trouble swallowing and voice change. Eyes: Negative for photophobia, pain and visual disturbance. Respiratory: Negative for apnea, cough, chest tightness, shortness of breath, wheezing and stridor. Cardiovascular: Negative for chest pain, palpitations and leg swelling. Gastrointestinal: Negative for abdominal distention, abdominal pain, blood in stool, constipation, diarrhea, nausea and vomiting. Endocrine: Negative for cold intolerance and heat intolerance. Genitourinary: Negative for decreased urine volume, difficulty urinating, dysuria, enuresis, flank pain, frequency, hematuria and urgency. Musculoskeletal: Negative for arthralgias, back pain, gait problem, joint swelling, myalgias, neck pain and neck stiffness. Skin: Negative for color change, pallor, rash and wound. Neurological: Negative for dizziness, syncope, speech difficulty, weakness, light-headedness, numbness and headaches. Hematological: Negative for adenopathy. Does not bruise/bleed easily. Psychiatric/Behavioral: Negative for confusion, hallucinations, sleep disturbance and suicidal ideas. The patient is not nervous/anxious. All other systems reviewed and are negative. Breast: Positive for breast lumps, breast pain, painful lump. Patient denies discharge, breast skinlesion. IMAGING: I have independently reviewed the most recent imaging including a left diagnostic mammogram with tomosynthesis and a left breast ultrasound at [facility] on June 03, 2020 which showsscattered fibroglandular parenchyma no dominant masses or suspicious calcifications on mammogram and ultrasound showed no focal abnormalities, BI-RADS Category 1. PHYSICAL EXAM: Ht 5' 6 Wt 95.3 kg (210 lb) LMP 06/07/2020 (Exact Date) No BMI 33.89 kg/m Physical Exam Constitutional: She appears well-developed and well-nourished. No distress. Neck: No thyromegaly present. Pulmonary/Chest: Breast: Breasts are normal, symmetrical, without nipple retraction, erythema, or discharge. Both breasts are dense to palpation with fibroglandular tissue. No concerning masses. No axillary lymphadenopathy. Musculoskeletal: General: No tenderness or edema. Lymphadenopathy: She has no cervical adenopathy. She has no axillary adenopathy. Right: No supraclavicular adenopathy present. Left: No supraclavicular adenopathy present. Skin: No rash noted. She is not diaphoretic. No erythema. No pallor. Psychiatric: She has a normal mood and affect. Her behavior is normal. Vitals reviewed. ASSESSMENT/PLAN: 25 y.o. female presents today for evaluation and management of a left breast mass that she has noted since January 2020 that fluctuates up and down in size throughout the month. Diagnostic imaging in May 2020 was benign. On my exam today, there are no suspicious findings. She has dense fibroglandular tissue bilaterally including at the area of her concern in the 12-1:00 zone A left breast but no concerning masses. We discussed management of breast pain including supportive bras, decreasing caffeine intake, warm compresses, anti- inflammatories, and supplementation with evening primrose oil.I will see her back in 6 months to re-evaluate and confirm stability on clinical exam or sooner if she notes any changes. She is aware I am available for any further questions or concerns she may have before her next visit. documented in this [id number] History general Narrative - Reported* Type Description Date Surgical History left radial tunnel release 12/06 19 Surgical History wisdom teeth removal 2012 71lbs Other Evaluation note* Diagnosis [facility]- [facility] Onset Date Resolution Status Excessive sweating acute Migraines acute New onset of headaches acute [facility] Work Phone: Evaluation note* Diagnosis Onset Date Resolution Status Excessive sweating acute Migraines acute New onset of headaches acute Migraines acute Wellness examination acute [facility] Work Phone: Evaluation note* Diagnosis Onset Date Resolution Status Excessive sweating acute Migraines acute New onset of headaches acute BMI 33.0-33.9,adult acute Migraines acute Wellness examination acute Eustachian tube dysfunction acute [facility] Work Phone: Evaluation note* Diagnosis Onset Date Resolution Status Admit Date Galactorrhea acute June 04, 2024 8:19am [facility] Work Phone: Summary Purpose Family History Relationship Condition Age at Onset Recorded Date/T asad Not Specified No pertinent family history Unknown Advance Directives Documents on File Type Date 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 Advance Directives and Living Will Advance Directive Response Recorded Date/ Time Advance Directives No January 16, 2021 10:21am Chief Complaint and Reason for Visit Chief Complaint Establish Reason for Visit Excessive sweating Migraines New onset of headaches Chief Complaint Establish 1 mon follow up Reason for Visit Excessive sweating Migraines New onset of headaches Migraines Wellness examination Chief Complaint Establish 1 mon follow up sore throat Reason for Visit Excessive sweating Migraines New onset of headaches BMI 33.0-33.9,adult Migraines Wellness examination Eustachian tube dysfunction Chief Complaint Admit Date 6 month f/u June 04, 2024 8:1 9am Reason for Visit Admit Date Galactorrhea June 04, 2024 8:1 9am Additional Source Comments INFORMATION SOURCE (unrecogn ized section and content) DATE CREATED AUTHOR 09/11/2017 [facility] DATE CREATED AUTHOR AUTHOR'S ORGANIZ ATION 07/11/2020 [facility] DATE CREATED AUTHOR AUTHOR'S ORGANIZ ATION 03/14/2021 [facility] DATE CREATED AUTHOR AUTHOR'S ORGANIZ ATION 03/20/2021 [facility] DATE CREATED AUTHOR AUTHOR'S ORGANIZ ATION 04/11/2021 [facility] DATE CREATED AUTHOR AUTHOR'S ORGANIZ ATION 06/05/2021 [facility] DATE CREATED AUTHOR AUTHOR'S ORGANIZ ATION 05/24/2022 [facility] DATE CREATED AUTHOR AUTHOR'S ORGANIZ ATION 09/13/2023 [facility] Special[facility] EPIC Reason for Visit (unrecogniz ed section and content) Reason Comments Consult New patient with lef t breast mass CAT 1. [facility] Imaging and images are in system Status Reason Specialty Diagnoses / Procedures Referred By Contact Referred To Contact Closed Specialty Services Required/Patien t's Best Interest Breast Surgery Diagnoses Left breast mass Swapnil Skinner, [employer] [address] [place] [address] [facility] [address] [place] [address] Care Teams (unrecognized sec tion and content) Team Status: Active Member Role Status Dates Dorothea Duncan APRN [employer] Primary Care Provider Active Team Status: Inactive Member Role Status Dates Dorothea Duncan APRN [employer] Primary Care Provider, Attending Provider Active Start: October 18, 2023 End: October 18, 2023 Team Status: Inactive Member Role Status Dates Dorothea Duncan APRN [employer] Primary Care Provider, Attending Provider Active Start: December 05, 2023 End: December 05, 2023 Team Status: Inactive Member Role Status Dates Dorothea Duncan APRN [employer] Primary Care Provider, Attending Provider Active Start: December 30, 2023 End: October 14th, 2024 Team Status: Inactive Member Role Status Dates Dorothea Duncan APRN [employer] Primary Care Provider, Attending Provider Active Start: June 04, 2024 End: June 04, 2024 Goals (unrecognized section and content) Goals may be documented in a n alternate section FOR RECORDS PERTAINING TO PATIENTS WHO ARE OR HAVE BEEN ENROLLED IN A CHEMICAL DEPENDENCY/SUBSTANCEABUSE PROGRAM, SOME INFORMATION MAY BE OMITTED. This clinical summary was aggregated from multiple sources. Caution should be exercised in using it in the provision of clinical care. This summary normalizes information from multiple sources, and as a consequence, information in this document may materially change the coding, format and clinical context of patient data. In addition, data may be omitted in some cases. CLINICAL DECISIONS SHOULD BE BASED ON THE PRIMARY CLINICAL RECORDS. [email or web address] provides no warranty or guarantee of the accuracy or completeness of information in this document.
[2024-06-04 17:35] LABS: TSH W/ REFLEX FT4 1.313 uIU/mL (0.358-3.740)
[2024-06-06 04:07] LABS: FSH 3.7 mIU/mL (.); Luteinizing Hormone(LH) 7.8 mIU/mL (.); Prolactin 9.5 ng/mL (4.8-33.4)
== END 2024-06-04 16:33 | disposition home or self-care (01) ==
LOC: LAB 16:35
PROVIDERS: PCP Nurse Practitioner Family; Visit Provider Nurse Practitioner Family
DX: N64.3 Galactorrhea not associated with childbirth (principal)
CPT/HCPCS: 36415; 83001; 83002; 84146; 84443